=== PATIENT | female | born 1995 | race Caucasian/White ===

== ENCOUNTER 2024-02-29 18:45 | Emergency (ER) | payer SELFPAY ==
[2024-02-29 18:47] VITALS: BP 140/98; PULSE 125; RESP 22; TEMP 36; O2SAT 98
[2024-02-29 20:04] LABS: Bilirubin Negative (Negative); Blood Negative (Negative); Clarity Clear (Clear); Glucose Negative (Negative); Ketones Trace mg/dL (Negative); Leukocyte Esterase Negative (Negative); Nitrite Negative (Negative); Specific Gravity 1.025 (1.005-1.025); pH 6.5 (5-8)
[2024-02-29 20:19] LABS: Epithelial Cells Moderate HPF (Negative); RBC 0-2 HPF (0-2); WBC 0-2 HPF (0-5)
[2024-02-29 20:20] LABS: Bacteria Rare HPF (Negative); C & S Indicated? No/Sq. Contamination; Casts Negative LPF (Negative); Crystals Negative HPF (Negative); Mucus Heavy (Negative)
[2024-02-29 20:24] VITALS: PULSE 108; RESP 18; O2SAT 98
--- NOTE | 2024-02-29 20:30 | NUR.NOTE ---
Pt came in with concerns of , her blood pressure was elevated and she was being evaluated for pre-eclampsia, while attempting to draw her blood she became upset, she stated she was done, that she needed to put her child to bed, and that she had to be back tomorrow anyway, I attempted to get her to talk to the provider but she walked by and left without stopping, pt eloped, provider aware, Pt is awake and alert and appears to be able to make an informed decision, we did not get blookwork, FPJ
--- NOTE | 2024-02-29 20:52 | W.ED.GENAD ---
Discharge Plan Disposition Patient Disposition: Eloped Discharge Details Clinical Impression: Primary Care Provider: Unknown,Unknown ED Provider: Elidia Perry Home Meds and New Rx's Prescriptions: Continued citalopram 40 mg tablet 40 mg PO DAILY buprenorphine HCl 8 mg tablet, sublingual 8 mg sublingual DAILY Discontinued dextroamphetamine-amphetamine [Adderall] 20 mg tablet 20 mg PO DAILY doxycycline hyclate 50 mg tablet 25 mg PO BID HPI General Date/Time Provider Initiated Documentation: 02/29/24 19:13. HPI Narrative: This 28-year-old female with past medical history of endocarditis, anxiety, depression, moregellons disease, presents with report of concern for . Patient states she is unsure as to her last menstrual period, she thinks it was approximately 5 months ago. She states she has had some bloating and intermittent nausea. Patient denies any vaginal bleeding or abdominal discomfort. She has not had any care as she did not think to check for until this week. She states typically her periods are erratic. She is sexually active and monogamous with her . 3 para 1 Related Data Home Medications ?Medication ?Instructions ?Recorded ?Confirmed buprenorphine HCl 8 mg sublingual 8 mg sublingual DAILY 02/29/24 02/29/24 tablet citalopram 40 mg tablet 40 mg PO DAILY 02/29/24 02/29/24 Allergies Allergy/AdvReac Type Severity Reaction Status Date / Time bacitracin (From Neosporin Allergy Intermediate Skin Rash Verified 02/29/24 18:51 ([id number])) neomycin (From Neosporin Allergy Intermediate Skin Rash Verified 02/29/24 18:51 ([id number])) polymyxin B (From Neosporin Allergy Intermediate Skin Rash Verified 02/29/24 18:51 ([id number])) General Stated Complaint: 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: 4 Exam Narrative Exam Narrative: 28-year-old female anxious in appearance, alert and oriented, lungs clear to auscultation, sinus tachycardia, no abdominal tenderness no peripheral edema, distal pulses intact Course Vital Signs Vital signs: Vital Signs Temperature 36.0 C L 02/29/24 18:47 Pulse 125 H 02/29/24 18:47 Respiratory Rate 22 02/29/24 18:47 Blood Pressure 140/98 H 02/29/24 18:47 Pulse Oximetry 98 02/29/24 18:47 Temperature 36.0 C L 02/29/24 18:47 Temperature Source Temporal Artery Scan 02/29/24 18:47 Pulse 108 H 02/29/24 20:24 Respiratory Rate 18 02/29/24 20:24 Respiratory Effort Normal, Non-Labored 02/29/24 18:54 Blood Pressure 140/98 H 02/29/24 18:47 Blood Pressure Position Sitting 02/29/24 18:47 Pulse Oximetry 98 02/29/24 20:24 Oxygen Delivery Method Room Air 02/29/24 18:47 Oxygen Flow Rate 0 02/29/24 18:47 Pain Level 0 02/29/24 18:47 Lab/Test Results Lab/Test Results: Laboratory Tests Range/Units 02/29/24 18:52 Urine Color (Yellow) Yellow Urine Clarity (Clear) Clear Urine pH (5-8) 6.5 Ur Specific [place] (1.005-1.025) 1.025 Urine Protein (Neg-Trace) mg/dL 30 H Urine Ketones (Negative) mg/dL Trace H Urine Blood (Negative) Negative Urine Nitrite (Negative) Negative Urine Bilirubin (Negative) Negative Urine Urobilinogen (Up to 0.2) mg/dL 1.0 H Ur Leukocyte Esterase (Negative) Negative Urine RBC (0-2) HPF 0-2 Urine WBC (0-5) HPF 0-2 Ur Epithelial Cells (Negative) HPF Moderate Urine Crystals (Negative) HPF Negative Urine Bacteria (Negative) HPF Rare Urine Casts (Negative) LPF Negative Urine Mucus (Negative) Heavy Ur Culture Indicated? No/Sq. Contamination Urine Glucose (Negative) mg/dL Negative POC- Test(urine) Positive Medical Decision Making 28-year-old female presenting for test and evaluation. She has a positive urine test. Uterus is measuring at 4 to 5 months. heart rate 165. Blood pressure 150/98 and patient is likely between 4 and 5 months as we did check a urinalysis and there is protein noted in patient's urine. I recommended blood work and my plan was to order a second trimester ultrasound in addition to reviewing blood work and speaking with VETERANS EMPLOYMENT REPRESENTATIVE and patient eloped. Steve, platen press operator was about to draw blood work with an ultrasound-guided IV and patient said that she needed to leave to put her son to bed. I am unable to order patient ultrasound as she eloped prior to reassessment. I was unable to discuss with her that she is leaving against medical recommendation. I have placed patient on follow-up as she does need care. She is instructed to stop taking her doxycycline immediately and to review Adderall and Ativan with her PCP. She also takes Subutex and citalopram, please appear to be safe for . She also was encouraged to start taking a vitamin. Have also placed her on the list to establish with a primary care physician locally. Sounds like her last she delivered at [facility]. 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 She was considered a high risk . She will likely need referral to [facility], however will initiate VETERANS EMPLOYMENT REPRESENTATIVE follow-up at our facility. Patient's was in the room and seemed appropriate throughout the encounter. Quality:SDOH Health Related Social Needs: No Data to Display PFSH All Active Problems (Updated 02/29/24 @ 21:03 by ARMANI Bonilla) (Acute) Social History Smoking/Tobacco Use Status: Former Tobacco Use Smoking risk assessment performed?: Yes Alcohol Intake: former Substance use type: former substance user Housing: house Do you feel safe at home: Yes Do you feel safe in your relationship?: Yes
--- NOTE | 2024-03-01 12:24 | NUR.NOTE ---
Access chart to review the referral reply done. Nursing Note:
[2024-04-17 00:41] LABS: HCT 32.6 % (36.0-46.0); MCH 25.6 pg (27.0-33.0); MCHC 30.7 % (32.0-36.0); MCV 84 fL (80-95); MPV 11.7 fL (8.0-11.0); Platelet Count 238 10^3/uL (130-400); RDW 14.6 % (11.7-14.6); RDW-SD 44.5 fL; WBC 10.67 10^3/uL (4.4-10.8)
--- NOTE | 2024-04-17 01:04 | W.PM.OBHPL1 ---
Date of service: 04/17/24 Time of Service: 01:04 OB-HPI Labor/Delivery History of Present Illness Reason for Visit: bloating? preg? Chief Complaint: Uterine Contractions; Suspected Rupture of Membranes , Associated Signs and Symptoms of Suspected ROM: wet the bed just before 2300. PFSH All Active Problems (Updated 04/17/24 @ 01:05 by Jill Stafford) (Acute) Social History Smoking/Tobacco Use Status: Former Tobacco Use Smoking risk assessment performed?: Yes Alcohol Intake: former Substance use type: former substance user Housing: house Do you feel safe at home: Yes Do you feel safe in your relationship?: Yes Meds Allergies and Home Medications Allergies Allergy/AdvReac Type Severity Reaction Status Date / Time bacitracin (From Neosporin Allergy Intermediate Skin Rash Verified 02/29/24 18:51 ([id number])) neomycin (From Neosporin Allergy Intermediate Skin Rash Verified 02/29/24 18:51 ([id number])) polymyxin B (From Neosporin Allergy Intermediate Skin Rash Verified 02/29/24 18:51 ([id number])) Home Medications ?Medication ?Instructions ?Recorded ?Confirmed ?Type buprenorphine HCl 8 mg sublingual 8 mg sublingual DAILY 02/29/24 02/29/24 History tablet citalopram 40 mg tablet 40 mg PO DAILY 02/29/24 02/29/24 History Exam Physical Exam Vital signs: Temp Pulse Resp BP Pulse Ox 96.8 F L 108 H 18 140/98 H 98 02/29/24 18:47 02/29/24 20:24 02/29/24 20:24 02/29/24 18:47 02/29/24 20:24 Detailed Labor and Delivery Exam Tang Score: Cervical Points Exam 0 1 2 3 Dilation Closed 1-2cm 3-4 cm 5-6cm Effacement 0-30% 40-50% 60-70% 80% Consistency Firm Medium Soft Station -3 -2 -1,0 +1,+2 Position Posterior Mid Anterior Results Abnormal Lab Findings: Abnormal Labs 02/29/24 04/17/24 18:52 00:35 RBC 3.90 L Hgb 10.0 L Hct 32.6 L MCH 25.6 L MCHC 30.7 L MPV 11.7 H Urine Protein 30 H Urine Ketones Trace H Urine Urobilinogen 1.0 H
[2024-04-17 01:16] LABS: ALT 39 U/L (14-59); AST 48 U/L (15-37); Albumin 2.3 g/dL (3.4-5.0); Alkaline Phosphatase 219 U/L (46-116); Anion Gap 9.2 mmol/L (3-11); BUN 15 mg/dL (7-18); Bilirubin, Total 0.27 mg/dL (0.2-1.0); CO2 24.8 mmol/L (21.0-32.0); CREATININE 0.9 mg/dL (0.55-1.02); Calcium 7.9 mg/dL (8.5-10.1); Chloride 102 mmol/L (98-107); Glucose 168 mg/dL (74-106); Potassium 3.9 mmol/L (3.5-5.1); Sodium 136 mmol/L (136-145); Total Protein 6.9 g/dL (6.4-8.2)
[2024-04-18 09:50] LABS: HIV-1/2 Ag & Ab Screen Negative (Negative)
[2024-04-19 10:39] LABS: Varicella IgG Antibody Positive (See Note)
[2024-04-19 10:53] LABS: Rubella IgG Ab (UVM) Positive (See Note)
[2024-04-20 14:41] LABS: Syphilis IgG w/Reflex Nonreactive (Nonreactive)
[2024-04-21 11:21] LABS: Buprenorphine 1702.3 ng/mL (Cutoff: 5.0); Norbuprenorphine 1522.6 ng/mL (Cutoff: 2.5)
== END 2024-02-29 20:24 | disposition left against medical advice (07) ==
PROVIDERS: Advanced Practice Midwife; Emergency Provider Physician Assistant
DX: R11.0 Nausea (principal); R12 Heartburn; Z32.01 Encounter for pregnancy test, result positive; I10 Essential (primary) hypertension; Z53.29 Procedure and treatment not carried out because of patient's decision for other reasons; Z86.79 Personal history of other diseases of the circulatory system
CPT/HCPCS: 80053; 81025; 99283; 81003; 81015; 83735; 84443; 85025; 99284

== ENCOUNTER 2024-04-16 23:50 | Inpatient (IN) | payer MEDICAID, SELFPAY ==
[2024-04-17] VITALS (68 sets, daily range): BP systolic 74–154; BP diastolic 50–100; PULSE 39–112; RESP 18–20; TEMP 36.4–37.4; O2SAT 97–100
--- NOTE | 2024-04-17 00:10 | HPE_ITS ---
Date of service: 04/17/24 Time of Service: 00:10 Assessment and Plan Assessment and plan (1) History of inadequate care: Status: Acute (2) labor in third trimester with delivery: Status: Acute Assessment and plan: A: 28 yo previous 40 wk in 2019 [facility] care, 35+4 wks by late trimester ultrasound Arrival in unit with delivery imminent; pt previously unknown to this service P: Dr. Garcia and Peds notified and enroute, GBS collected, labs ordered, start IV shortly; request records from [facility] (3) Hepatitis C antibody positive in blood: Status: Acute (4) Substance use disorder: Status: Acute OB-HPI Labor/Delivery History of Present Illness Reason for Visit: labor Chief Complaint: Uterine Contractions; Suspected Rupture of Membranes , Associated Signs and Symptoms of Suspected ROM: woke up to a wet bed just before 2300. RHONDA Calculator Estimated Delivery Date Method WG Current Estimate 05/18/24 Ultrasound #1 Infant Delivery Date-Baby A 04/17/24 35w 4d Comments: , 35 +4 wks by pt report of ultrasound dating at [facility], previous vaginal delivery Review of Systems Narrative: ROS not completed prior to delivery due to active labor PFSH All Active Problems (Updated 04/17/24 @ 01:26 by Jill Stafford) History of MRSA infection (Acute) History of endocarditis in adulthood (Acute) Morgellons syndrome (Acute) History of pulmonary embolism (Acute) Tricuspid valve regurgitation (Acute) PTSD (post-traumatic stress disorder) (Acute) Substance use disorder (Acute) Hepatitis C antibody positive in blood (Acute) labor in third trimester with delivery (Acute) History of inadequate care (Acute) (Acute) Social History Smoking/Tobacco Use Status: Former Tobacco Use Smoking risk assessment performed?: Yes Alcohol Intake: former Substance use type: former substance user Housing: house Do you feel safe at home: Yes Do you feel safe in your relationship?: Yes History History 3 Para 1 Hx # Term Pregnancies 1 Multiple births 0 Hx # Pregnancies 0 Ectopic pregnancies 0 AB induced 1 Hx Number of Living Children 1 AB spontaneous 0 Meds Allergies and Home Medications Allergies Allergy/AdvReac Type Severity Reaction Status Date / Time bacitracin (From Neosporin Allergy Intermediate Skin Rash Verified 02/29/24 18 :51 ([id number])) neomycin (From Neosporin Allergy Intermediate Skin Rash Verified 02/29/24 18:51 ([id number])) polymyxin B (From Neosporin Allergy Intermediate Skin Rash Verified 02/29/24 18:51 ([id number])) Home Medications ?Medication ?Instructions ?Recorded ?Confirmed ?Type buprenorphine HCl 8 mg sublingual 8 mg sublingual DAILY 02/29/24 02/29/24 History tablet citalopram 40 mg tablet 40 mg PO DAILY 02/29/24 02/29/24 History Exam Physical Exam Vital signs: Pulse BP Pulse Ox 80 97/55 L 97 04/17/24 01:07 04/17/24 01:07 04/17/24 01:04 Vital Signs Reviewed: Yes Constitutional Constitutional: severe distress, obese and agitated Detailed Labor and Delivery Exam Dilation: 8.5 Effacement (%): 100 station: 0 Amniotic Membrane Status: Ruptured (clear) Contraction Frequency(min): q2-3 Contraction Intensity: Moderate/Strong Fetus A Heart Rate Baseline: 140 Variability: Moderate (6-25 BPM) Presentation: Cephalic Date of Membrane Rupture: 04/17/24 Time of Membrane Rupture: 23:00 HEENT Exam HEENT Exam: Normal Neck Exam Neck Exam: Normal Chest/Brest/Axilla Exam Chest Exam: Normal Breast Exam Breast Exam: Not Done Respiratory Exam Respiratory Exam: Normal Cardiovascular Exam Cardiovascular Exam: Normal Abdominal Exam Abdominal Exam: Normal (35 wk gravid uterus, nontender) Rectal Exam Rectal Exam: Normal Exam Exam: Normal Extremities Exam Extremities Exam: Normal Back/Spine/Pelvis Exam Back Exam: Normal Pelvis Adequate: Yes Skin Exam Skin Exam: Normal Neurological Exam Neurological Exam: Normal Results Results Group Beta Strep: Done-Result Unknown Risk Assessment Risk for Shoulder Dystocia Increased Risk?: No Counseling: proven to 7-8 lb Risk for Post- Hemorrhage At Risk?: Yes Counseled re: Active Management: Yes Risks Reviewed Risks Reviewed Upon Admission: Yes
[2024-04-17] MEDS: Oxytocin 10 UNITS/ML VIAL IM (00:15)
--- NOTE | 2024-04-17 00:40 | PLAC_PTH ---
PATIENT: Janel Marie LOC: OBS U#:[id number] AGE/SX: 28/F ROOM: OBS.301 RE04/16/[address]: Jill Stafford CNM : 1995 BED: A DIS: 04/22/2024 SPEC #: [id number] RECD: 04/19/24 12:50 STATUS: ALLEN REQ #: [id number] JONI: 04/17/24 00:[address]: Ilene Garcia DEPT: Surgical Specimen RECD BY: Elidia Samson ENTERED: 04/19/24 12:50 SP TYPE: PLAC OTHR DR: Jill Stafford CNM Unknown,Unknown Tissues: 1 - PLACENTA (3RD TRIMESTER) Procedures: GROSS AND MICRO LEVEL 5 Comments: [id number]
[2024-04-17] MEDS: Lactated Ringers 500 ML IV (01:00)
[2024-04-17] MEDS: TRANEXAMIC ACID/SOD. CHL. 1,000 MG/100 ML BAG 600 MG IVPB (01:00)
[2024-04-17] MEDS: Oxytocin/Normal Saline 30 UNIT/500 ML BAG 167 UNITS IV (01:15)
[2024-04-17] MEDS: Ibuprofen 600 MG TAB PO (01:25)
[2024-04-17] MEDS: Acetaminophen 325 MG TAB 650 MG PO (01:25)
--- NOTE | 2024-04-17 01:27 | OBVDS_ITS ---
Date of service: 04/17/24 Time of Service: 01:27 OB Labor/ Delivery Information Baby A Delivery Delivery Method: Spontaneaous Presentation: Cephalic Cephalic Position: Vertex Breech Position: N/A Cord Description-Baby A: 3 Vessels (hypercoiled cord) Amniotic Fluid: Clear Estimated Blood Loss: 1400 QBL Delivery Outcome: Liveborn Infant Transferred: Remains with Mother Note: Pt admitted to unit in advanced labor accompanied by FOB, having a difficult time coping with contraction pain and was somewhat uncooperative with admission procedures, unable to obtain a consistent FHT tracing, multiple attempts at IV access were unsuccessful, of vigorous female less than 25 minutes after arrival to unit in precipitous fashion, RN was able to control the delivery of the body once the head had already delivered spontaneously then h anded the crying to mother's arms as CNM arrived in room. Pitocin 10 units IM given, cord clamped and cut by FOB at 5 minutes, brisk vaginal bleeding began without cord lengthening or placental release despite cord traction, fundal massage and maternal efforts. RN resumed IV access attempts with success, QBL @ 800 ml and TXA infusion ordered as well as Pitocin bolus. Brisk bleeding continued with QBL at 1000 ml, Dr. Garcia notified via phone as she was en route and OR team was called in anticipation of need for anesthesia due to retained placenta with hemorrhage. At 38 minutes post-delivery [place] placenta delivered intact with 3VC which appears hypercoiled, fundus firm below umbilicus, straight cath performed for 100 ml yellow urine @ 0049 which was sent to lab for UDS. QBL at 1400 ml, lochia slowed to a trickle with no clots in vaginal vault. Miso 600 mcg given PO, soft BP readings addressed with IVF bolus, vulva and vagina inspected and are without laceration. Placenta inspected and noted to be complete, will send to pathology and cord segment tax will be ordered by Peds. 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 Appropriate mother/baby bonding observed, apgars 8/9, weight 2700 gms. Providers Nurse Record Press Tender: Jill Stafford Nurse: Stefany Mcdonough Nurse: Yeny Stafford Labor/Delivery Information Number of Babies in Womb: 1 Steroids Given: None Reason Steroids Not Administered: N/A Group Beta Strep: Done-Result Unknown Antibiotics Administered: No Maternal Complications: Precipitous Labor(<3hrs) and Hemorrhage Shoulder Dystocia: No Stages of Labor Onset of Labor Date: 04/16/24 Onset of Labor Time: 23:00 Complete Dilatation Date: 04/17/24 Complete Dilatation Time: 00:10 Labor - Stage 1 Duration: 1 hours and 10 minutes ROM Baby A: 04/17/24 ROM Baby A: 23:00 ROM Total Time- Baby A: hours-1367minutes Infant Delivery Date-Baby A: 04/17/24 Delivery Time-Baby A: 00:13 Labor Stage 2 Duration: 3 minutes Placenta Delivery Date-Baby A: 04/17/24 Placenta Delivery Time-Baby A: 00:42 Labor-Stage 3 Duration: 29 minutes Total Length of Labor-Baby A: 1 hours and 13 minutes Placenta Status: Delivered Baby A Gender: Female Gestational Status: Late (34-36.6 wks) Gestational Age in Weeks/Days: 35 Weeks and 4 Days weight: 5 lb 14.887 oz Hemorrrhage Note Note Note: QBL determined by contents of under buttocks drape, scale not needed Hemorrhage Recognized Date Hemorrhage Recognized: 04/17/24 Time Hemorrhage Recognized: 00:18 Call for Help Date: 04/17/24 Time: 00:18 2nd RN in Room Date: 04/17/24 Time: 00:05 2nd RN: Yeny Stafford Provider in Room Date: 04/17/24 Time: 00:14 Provider: Jill Stafford RN Promotion Officer Notified Date: 04/17/24 Time: 23:50 RN Promotion Officer on Floor Date: 04/17/24 Time: 23:55 IV Site Left Antecubital: Date: 04/17/24 Time: 01:00 Right: Date: 04/17/24 (placed by ANDRÉS for 2nd line) Suarez Catheter Time of insertion: 00:49 Inserted by: straight cath by JAD Stafford Medication Administration 1st Administration: Medication: Oxytocin 10 U IM Administration Date: 04/17/24 Administration Time: 00:15 2nd Administration: Medication: TXA 1 gm IV Administration Date: 04/17/24 Administration Time: 01:00 3rd Administration: Medication: Oxytocin 30U/500 ml IV Administration Date: 04/17/24 Administration Time: 01:15 4th Administration: Medication: Misoprostol 600 mcg PO Administration Date: 04/17/24 Administration Time: 00:53 Second Provider in Room Date: 04/17/24 Time: 00:50 Provider: Ilene Garcia Total Blood Loss for PPH Event Quantitative Blood Loss: 1,400
--- NOTE | 2024-04-17 01:38 | W.ANESVAS ---
Midline Placement Date Performed: 04/17/24 Procedure Time: Requesting Provider: Ilene Garcia Procedure Location: Obstetrics Sedation Given (Indicate Dose Given): No Sedation given Patient Mental Status: Awake Sterility: Hand Hygiene, Surgical Cap, Surgical Mask, Sterile Gloves, Sterile Drape/Sheet and Chlorhexidine Laterality: Right Insertion Site: Basilic Midline Device: PowerGlide Pro 18G Catheter Length: 10 cm Midline Procedure Procedure: 1% Lidocaine to skin and subcutaneous tissue with 25g needle and Catheter placed without resistance Dressing: Tegaderm Applied and Statlock Applied Blood Return: Present Flushes: Easily Ultrasound: Sterile probe cover and gel used Ultrasound Image Saved?: Yes Number of Attempts (See previous attempts in note section): 1 Procedure Tolerated: No Complications Procedure Outcome: Successful Procedure Comment:: Was called in for a stat post hemorrhage. On arrival hemmorage had stopped, but with still soft BPs and a singular 20 GA PIV. Extremely poor peripheral vascular options on visual exam, so a midline was placed. Performed By: Pedro Castellano
[2024-04-17 02:50] LABS: COMMENT (LAB VIEW ONLY) 214.38 mg/dL; PROTEIN 45.9 mg/dL; Prot/Crea Ur Ratio 0.21
[2024-04-17 02:55] LABS: *AMPHETAMINES SCREEN URINE Positive (Negative); *BARBITURATES SCREEN URINE Negative (Negative); *BENZODIAZEPINES SCREEN URINE Negative (Negative); Cannabinoids THC Negative (Negative); Cocaine Screen,Urine Positive (Negative); METHADONE URINE SCREEN Negative (Negative); OPIATES URINE SCREEN Negative (Negative)
[2024-04-17 02:57] LABS: Tricyclic Antidepressants Negative (Negative)
[2024-04-17] MEDS: Citalopram 20 MG TAB PO (08:40)
[2024-04-17 09:53] LABS: Lab Add On Test DONE
--- NOTE | 2024-04-17 10:02 | OBPPV_ITS ---
Date of service: 04/17/24 Time of Service: 10:02 Assessment and Plan Assessment and plan (1) Gestational hypertension without significant proteinuria: Status: Acute Assessment and plan: Repeat CMP/CBC this evening Mild range BP 140-150 over 95-100 Denies CURRAN, RUQ pain, SOB or dizziness gHTN vs cHTN Repeat CMP today, consider antihypertensive medication in consultation with Dr. Garcia (2) Cocaine abuse affecting in third trimester: Status: Acute Assessment and plan: UDS +cocaine and amphetamines, pt takes Adderal & Bup by prescription Order to confirm cocaine results sent Pt informed of results and denies use, is contraindicated if pt is using, pt opts to pump/dump today Pt requests repeat UDS tomorrow morning LESA/ESC in progress per Peds, cord segment tox pending Peds has initiated report to [facility] (3) , delivered: Status: Acute Assessment and plan: A: PP day of delivery, mild range BP noted, pt denies sx, pr/cr ratio is nml, AST slightly elevated gestational vs chronic HTN, known Hep C+ from previous records, serology pending JOSE, cocaine+ on admission UDS Pt lives with FOB and their 5 yo son in [facility] P: repeat CMP and CBC this evening; Dr. Garcia collaborating Explain ESC process to pt and encourage her participation/engagement Expect discharge to boarder status PPD#2 or 3 pending serial BP and lab results Engage case management & S in accessing community support planning after discharge DCF has been given report of no care and UDS result by Peds discouraged until UDS is clear of cocaine Pt desires Nexplanon insertion prior to discharge States she desires referral to [facility] for Hep C treatment in future (4) hemorrhage, third stage, delivered: Status: Acute Assessment and plan: s/p 1400 QBL in third stage, stable with minimal blood loss since placenta delivered Midline IV access is saline locked and patent Pt denies SOB, dizziness or sx of anemia Will recheck CBC this evening Consider iron infusion prior to discharge depending on H&H Exam Physical Exam Vital signs: Temp Pulse Resp BP Pulse Ox 99.3 F 88 18 148/100 H 97 04/17/24 09:04 04/17/24 09:04 04/17/24 09:04 04/17/24 09:04 04/17/24 09:04 Vital Signs Reviewed: Yes Constitutional Constitutional: no acute distress, obese and cooperative HEENT Exam HEENT Exam: Normal Neck Exam Neck Exam: Normal Breast Exam Bilateral: Breast Exam: Normal and Soft Nipple Exam: Normal and Uninjured Respiratory Exam Respiratory Exam: Normal Cardiovascular Exam Cardiovascular Exam: Normal Abdominal Exam Abdomen: Other (soft, nontender) Fundal Exam Fundus: Below Umbilicus and Firm Rectal Exam Rectal Exam: Normal Exam Perineum: Intact and Normal Extremities Exam Extremity Exam: Full ROM, Warm to Touch and Other (+1 lower limb edema) Back/Spine/Pelvis Exam Back Exam: Normal Skin Exam Skin Exam: Normal Neurological Exam Neurological Exam: Normal (no clonus, nml patellar reflex) Psychiatric Exam Psychiatric Exam: Normal Results Abnormal Lab Findings: Abnormal Labs 04/17/24 00:50 Ur Amphetamines Screen Positive A Urine Cocaine Screen Positive A Hemorrrhage Note Hemorrhage Recognized Date Hemorrhage Recognized: 04/17/24 Time Hemorrhage Recognized: 00:18 Call for Help Date: 04/17/24 Time: 00:18 2nd RN in Room Date: 04/17/24 Time: 00:05 2nd RN: Yeny Stafford Provider in Room Date: 04/17/24 Time: 00:14 Provider: Jill Stafford RN Talent Acquisition Lead Notified Date: 04/17/24 Time: 00:18 RN Talent Acquisition Lead on Floor Date: 04/17/24 Time: 23:55 Talent Acquisition Lead: Alex OTOOLE Scale in Room Date: 04/17/24 Time: 00:20 OB Emergency Cart at Bedside Date: 04/17/24 Time: 00:20 Suarez Catheter Urinary Catheter Date of Insertion: 04/17/24 Time of insertion: 00:49 Inserted by: JAD Stafford Straight Cath Second Provider in Room Date: 04/17/24 Time: 00:50 Provider: Ilene Garcia Total Blood Loss for PPH Event Quantitative Blood Loss: 1,400 Labs Drawn Labs Drawn: Yes
[2024-04-17] MEDS: LORazepam 1 MG TAB 2 MG PO ×2 (12:34→20:02)
[2024-04-17 18:20] LABS: HCT 22.5 % (36.0-46.0); HGB 7.1 g/dL (11.2-15.7); MCHC 31.6 % (32.0-36.0); MCV 82 fL (80-95); MPV 11.6 fL (8.0-11.0); Platelet Count 222 10^3/uL (130-400); RBC 2.73 10^6/uL (3.93-5.22); RDW 14.6 % (11.7-14.6); RDW-SD 42.7 fL; WBC 11.53 10^3/uL (4.4-10.8)
[2024-04-17 18:31] LABS: ALT 28 U/L (14-59); AST 40 U/L (15-37); Albumin 1.8 g/dL (3.4-5.0); Alkaline Phosphatase 153 U/L (46-116); Anion Gap 5.8 mmol/L (3-11); BUN 14 mg/dL (7-18); Bilirubin, Total 0.17 mg/dL (0.2-1.0); CO2 26.2 mmol/L (21.0-32.0); CREATININE 0.9 mg/dL (0.55-1.02); Calcium 8.1 mg/dL (8.5-10.1); Chloride 104 mmol/L (98-107); Glucose 81 mg/dL (74-106); Potassium 4.4 mmol/L (3.5-5.1); Sodium 136 mmol/L (136-145); Total Protein 5.3 g/dL (6.4-8.2)
[2024-04-17] MEDS: Docusate Sodium 100 MG CAP PO (21:08)
[2024-04-18] MEDS: Citalopram 20 MG TAB PO (08:35)
[2024-04-18] MEDS: IRON SUCROSE COMPLEX 300 MG in Normal Saline 250 ML 167 MG IVPB (08:53)
[2024-04-18] MEDS: Normal Saline Flush 10 ML SYR IVP ×2 (08:54→10:40)
[2024-04-18] MEDS: LORazepam 1 MG TAB 2 MG PO ×2 (09:12→16:11)
[2024-04-18 09:18] VITALS: BP 139/89; PULSE 86; RESP 18; TEMP 36.9
[2024-04-18 09:34] LABS: *AMPHETAMINES SCREEN URINE Positive (Negative); *BARBITURATES SCREEN URINE Negative (Negative); *BENZODIAZEPINES SCREEN URINE Negative (Negative); Cannabinoids THC Negative (Negative); Cocaine Screen,Urine Positive (Negative); METHADONE URINE SCREEN Negative (Negative); OPIATES URINE SCREEN Negative (Negative)
[2024-04-18 09:37] LABS: Tricyclic Antidepressants Negative (Negative)
[2024-04-18] MEDS: Ibuprofen 600 MG TAB PO (12:54)
[2024-04-18 13:01] VITALS: BP 146/97; PULSE 95
[2024-04-18 14:13] LABS: COMMENT (LAB VIEW ONLY) 23.23 mg/dL; PROTEIN < 6.0 mg/dL
[2024-04-18 14:14] LABS: ALT 33 U/L (14-59); AST 43 U/L (15-37); Albumin 1.9 g/dL (3.4-5.0); Alkaline Phosphatase 167 U/L (46-116); Anion Gap 5.1 mmol/L (3-11); BUN 12 mg/dL (7-18); CO2 30.9 mmol/L (21.0-32.0); CREATININE 0.8 mg/dL (0.55-1.02); Calcium 8.3 mg/dL (8.5-10.1); Chloride 103 mmol/L (98-107); Estimated GFR 101.59 (mL/min/1.73m2); Glucose 113 mg/dL (74-106); Potassium 4.3 mmol/L (3.5-5.1); Sodium 139 mmol/L (136-145); Total Protein 5.6 g/dL (6.4-8.2)
[2024-04-18 14:15] LABS: Bilirubin, Total < 0.10 mg/dL (0.2-1.0)
[2024-04-18 14:30] VITALS: BP 120/82; PULSE 102; RESP 16; TEMP 37; O2SAT 98
--- NOTE | 2024-04-18 14:40 | OBPPV_ITS ---
Date of service: 04/18/24 Time of Service: 14:41 Assessment and Plan Assessment and plan (1) Gestational hypertension without significant proteinuria: Status: Acute Assessment and plan: CMP yesterday and today are stable with mild elevation of AST @ 40's BP remains intermittently mild range; +1/+2 lower limb edema, normoreflexic New onset CURRAN this afternoon, treated with NSAID & tylenol Repeat pr/cr ratio was too low to calculate today Discussed gHTN vs cHTN with Dr. Garcia, anti-hypertensive medication not indicated at this time Will continue to monitor (2) Cocaine abuse affecting in third trimester: Status: Acute Assessment and plan: Repeat UDS this morning remains cocaine+ Will continue to formula feed , encourage pump/dump Repeat UDS tomorrow (3) , delivered: Status: Acute Assessment and plan: A: PPD#1, anemia from blood loss, cocaine+ in UDS, mild range HTN ESC/LESA in progress, infant not feeding well, mild jitters P: Dr. Garcia consulting/collaborating Plan referral for [facility] evaluation for tomorrow, anticipate DCF call or visit tomorrow Repeat UDS in morning; formula feeds until clear Second dose of iron sucrose IV on Friday (48 hrs from first dose today) Maintain midline IV access for blood draws and infusion Nexplanon insertion prior to discharge Plan for discharge on HD #4 (Friday) (4) Anemia associated with acute blood loss: Status: Acute Assessment and plan: s/p 1400 QBL in third stage, stable with minimal blood loss since placenta delivered Midline IV access is saline locked and patent Pt denies SOB, dizziness or sx of anemia 300 mg venofer infused today, repeat in 48 hrs Subjective Subjective Patient comments: Flatus present and Other (pt intermittently emotionally labile, at times tearful, requesting 2 mg ativan dose more frequently than q8 hr, concerned about DCF taking her kids away due to cocaine found in urine) Patient's Mood: labile, anxious, cooperative Ronald baby status: Rooming in, Strong Bonding Observed and Other (pipette feeding formula, jittery, poor suck, consolable) Ronald feeding status: Pipette Feeding (pt waiting for clear UDS to begin , has been encouraged to pump/dump for now) Exam Physical Exam Vital signs: Temp Pulse Resp BP Pulse Ox 98.4 F 95 H 18 146/97 H 100 04/18/24 09:18 04/18/24 13:01 04/18/24 09:18 04/18/24 13:01 04/17/24 19:46 Vital Signs Reviewed: Yes Narrative: Intermittent mild range BP readings Constitutional Constitutional: no acute distress, obese and cooperative HEENT Exam HEENT Exam: Normal Neck Exam Neck Exam: Normal Breast Exam Bilateral: Breast Exam: Normal and Soft Respiratory Exam Respiratory Exam: Normal Cardiovascular Exam Cardiovascular Exam: Normal Abdominal Exam Abdomen: Other (soft, nontender) Fundal Exam Fundus: Below Umbilicus and Firm Rectal Exam Rectal Exam: Normal Exam Perineum: Intact and Normal Extremities Exam Extremity Exam: Full ROM, Warm to Touch and Other (+1 lower limb edema) Back/Spine/Pelvis Exam Back Exam: Normal Skin Exam Skin Exam: Normal Neurological Exam Neurological Exam: Normal (no clonus, nml patellar reflex) Psychiatric Exam Psychiatric Exam: Normal Results Hemoglobin/Hematocrit: Hgb 7.1 g/dL (11.2-15.7) L D 04/17/24 18:00 Hct 22.5 % (36.0-46.0) L 04/17/24 18:00 Hemorrrhage Note Hemorrhage Recognized Date Hemorrhage Recognized: 04/17/24 Time Hemorrhage Recognized: 00:18 Call for Help Date: 04/17/24 Time: 00:18 2nd RN in Room Date: 04/17/24 Time: 00:05 2nd RN: Yeny Stafford Provider in Room Date: 04/17/24 Time: 00:14 Provider: Jill Stafford RN Sanitation Officer Notified Date: 04/17/24 Time: 00:18 RN Sanitation Officer on Floor Date: 04/17/24 Time: 23:55 Sanitation Officer: Alex OTOOLE Scale in Room Date: 04/17/24 Time: 00:20 OB Emergency Cart at Bedside Date: 04/17/24 Time: 00:20 IV Site Left Antecubital: Date: 04/17/24 Time: 01:00 IV Catheter Gauge: 18 Right: Date: 04/17/24 (placed by OXYGEN EQUIPMENT AIDE for 2nd line) Right Midline: Date: 04/17/24 Time: 01:25 IV Catheter Gauge: 18 Suarez Catheter Urinary Catheter Date of Insertion: 04/17/24 Time of insertion: 00:49 Inserted by: JAD Stafford Straight Cath Medication Administration 1st Administration: Medication: Oxytocin 10 U IM Administration Date: 04/17/24 Administration Time: 00:15 2nd Administration: Medication: Misoprostol 600 mcg PO Administration Date: 04/17/24 Administration Time: 00:53 3rd Administration: Medication: TXA 1 gm IV Administration Date: 04/17/24 Administration Time: 01:00 4th Administration: Medication: Oxytocin 30U/500 ml IV Administration Date: 04/17/24 Administration Time: 00:15 Second Provider in Room Date: 04/17/24 Time: 00:50 Provider: Ilene Garcia Total Blood Loss for PPH Event Quantitative Blood Loss: 1,400 Labs Drawn Labs Drawn: Yes
[2024-04-18 20:00] VITALS: BP 138/91; PULSE 87; RESP 18; TEMP 36.8
[2024-04-19 03:41] VITALS: BP 132/60; PULSE 109; RESP 18
[2024-04-19] MEDS: Citalopram 20 MG TAB PO (08:20)
[2024-04-19] MEDS: LORazepam 1 MG TAB 2 MG PO ×2 (08:23→15:51)
[2024-04-19] MEDS: Normal Saline Flush 10 ML SYR IVP ×2 (08:26→19:06)
[2024-04-19 08:30] VITALS: BP 151/96; PULSE 109; RESP 14; TEMP 36.9
[2024-04-19 10:20] LABS: Hepatitis B Surface Ag Negative (Negative)
[2024-04-19 11:15] LABS: Fentanyl Scr w/Rfx Confirm Negative ng/mL (<1)
[2024-04-19 11:18] LABS: Hepatitis C Ab w Rflx HCV PCR Reactive (Negative)
--- NOTE | 2024-04-19 11:24 | OBPPV_ITS ---
Date of service: 04/19/24 Time of Service: 11:24 Assessment and Plan Assessment and plan (1) Anemia associated with acute blood loss: Status: Acute Assessment and plan: 2nd iron sucrose infusion scheduled for tomorrow morning (2) , delivered: Status: Acute Assessment and plan: A: PPD#2, cocaine+ persists in UDS this morning, fentanyl negative BP overall stable, intermittently mild range, P: Pt seen by [facility] today, is enrolling in SMART Team & appropriate community supports Request for records sent to [facility] and PCP in [place] Pt interested in transferring MAT to [facility] in [facility] Iron sucrose 300 mg IVP planned for tomorrow Likely discharge to boarding status tomorrow Nexplanon insertion prior to discharge; f/up @ 2 & 6 weeks PP Subjective Subjective Patient's Mood: sad, anxious tearful baby status: Doing well, Supplemental feeding going well, Rooming in and Strong Bonding Observed [place] feeding status: Exclusively formula feeding (unable to take breastmilk until UDS Is clear) Exam Physical Exam Vital signs: Temp Pulse Resp BP Pulse Ox 98.4 F 109 H 14 151/96 H 98 04/19/24 08:30 04/19/24 08:30 04/19/24 08:30 04/19/24 08:30 04/18/24 14:30 Vital Signs Reviewed: Yes Narrative: mild range BP's intermittently Constitutional Constitutional: no acute distress, obese and cooperative Comments: Emotionally distressed HEENT Exam HEENT Exam: Normal Neck Exam Neck Exam: Normal Breast Exam Bilateral: Breast Exam: Normal and Soft Nipple Exam: Normal and Uninjured Respiratory Exam Respiratory Exam: Normal Cardiovascular Exam Cardiovascular Exam: Normal Abdominal Exam Abdomen: Other (nontender, soft) Fundal Exam Fundus: Below Umbilicus and Firm Rectal Exam Rectal Exam: Normal Exam Perineum: Intact Extremities Exam Extremity Exam: Normal, Full ROM, Warm to Touch and Other (+1/+2 lower limb edema, normoreflexic) Back/Spine/Pelvis Exam Back Exam: Normal Skin Exam Skin Exam: Normal Neurological Exam Neurological Exam: Normal Psychiatric Exam Psychiatric Exam: Normal Hemorrrhage Note Hemorrhage Recognized Date Hemorrhage Recognized: 04/17/24 Time Hemorrhage Recognized: 00:18 Call for Help Date: 04/17/24 Time: 00:18 2nd RN in Room Date: 04/17/24 Time: 00:05 2nd RN: Yeny Stafford Provider in Room Date: 04/17/24 Time: 00:14 Provider: Jill Stafford RN Institutional Aide Notified Date: 04/17/24 Time: 00:18 RN Institutional Aide on Floor Date: 04/17/24 Time: 23:55 Institutional Aide: Alex CraftBL Scale in Room Date: 04/17/24 Time: 00:20 OB Emergency Cart at Bedside Date: 04/17/24 Time: 00:20 Suarez Catheter Urinary Catheter Date of Insertion: 04/17/24 Time of insertion: 00:49 Inserted by: JAD Stafford Straight Cath Second Provider in Room Date: 04/17/24 Time: 00:50 Provider: Ilene Garcia Total Blood Loss for PPH Event Quantitative Blood Loss: 1,400 Labs Drawn Labs Drawn: Yes
[2024-04-19 11:33] LABS: *AMPHETAMINES SCREEN URINE Negative (Negative); *BARBITURATES SCREEN URINE Negative (Negative); *BENZODIAZEPINES SCREEN URINE Negative (Negative); Cannabinoids THC Negative (Negative); Cocaine Screen,Urine Positive (Negative); METHADONE URINE SCREEN Negative (Negative); OPIATES URINE SCREEN Negative (Negative)
[2024-04-19 11:36] LABS: Tricyclic Antidepressants Negative (Negative)
[2024-04-19 16:18] VITALS: BP 121/87; PULSE 109; RESP 16; TEMP 36.8; O2SAT 98
[2024-04-19 21:12] VITALS: BP 140/90; PULSE 109; RESP 18; TEMP 36.6
[2024-04-20 07:30] VITALS: BP 137/89; PULSE 109; RESP 14; TEMP 36.8
[2024-04-20] MEDS: LORazepam 1 MG TAB 2 MG PO ×2 (07:53→13:41)
[2024-04-20] MEDS: Citalopram 20 MG TAB PO (07:55)
[2024-04-20] MEDS: IRON SUCROSE COMPLEX 300 MG in Normal Saline 250 ML 167 MG IVPB (08:20)
[2024-04-20] MEDS: Normal Saline Flush 10 ML SYR IVP (08:20)
[2024-04-20 12:26] LABS: HCT 23.7 % (36.0-46.0); HGB 7.2 g/dL (11.2-15.7); MCH 25.8 pg (27.0-33.0); MCHC 30.4 % (32.0-36.0); MCV 85 fL (80-95); MPV 10.9 fL (8.0-11.0); Platelet Count 311 10^3/uL (130-400); RBC 2.79 10^6/uL (3.93-5.22); RDW 15.2 % (11.7-14.6); RDW-SD 45.7 fL; WBC 11.67 10^3/uL (4.4-10.8)
[2024-04-20 12:43] LABS: ALT 50 U/L (14-59); AST 49 U/L (15-37); Albumin 2.1 g/dL (3.4-5.0); Alkaline Phosphatase 148 U/L (46-116); Anion Gap 5.1 mmol/L (3-11); BUN 8 mg/dL (7-18); Bilirubin, Total 0.11 mg/dL (0.2-1.0); CO2 29.9 mmol/L (21.0-32.0); Calcium 7.7 mg/dL (8.5-10.1); Chloride 104 mmol/L (98-107); Estimated GFR 77.72 (mL/min/1.73m2); Glucose 83 mg/dL (74-106); Potassium 4.3 mmol/L (3.5-5.1); Sodium 139 mmol/L (136-145); Total Protein 6.2 g/dL (6.4-8.2)
--- NOTE | 2024-04-20 13:39 | W.OBCONSULT ---
Date of service: 04/20/24 Time of Service: 13:40 Assessment and Plan Assessment and plan (1) Term of female : Status: Acute Assessment and plan: We will assist as to her appropriate short-term follow-up. She would benefit from having a maternal echocardiogram. She was also benefit from maternal- medicine input, and cardiology evaluation. Due to the complexity and complex nature of her presentation, limited care, and social situation. We will do the as much as we can to streamline and coordinate these. (2) , delivered: Status: Acute (3) History of inadequate care: Status: Acute (4) Tricuspid valve regurgitation: (5) Septic pulmonary embolism: (6) Anemia associated with acute blood loss: Status: Acute History of Present Illness History of Present Illness Chief Complaint: Status post vaginal delivery, hemorrhage, gestational HTN Narrative: Kindly asked to see in consultation this 28-year-old who is now 4 days status post precipitous vaginal . Her was complicated by the fact that she had limited care. She is a 3 now para 2 with 1 vaginal approximately 5 years ago. She had, to the best of my knowledge, 1 visit with maternal- medicine at [facility]. She also had an echocardiogram performed at [facility]. She has a known history of tricuspid regurgitation. This appears to be from history related to an episode of bacterial endocarditis from a history of IV drug use. She states that she and her partner have been clean and sober for the last 5 years. Her delivery is complex and that she came and delivered precipitously and then had a significant hemorrhage to the point that her hemoglobin was down to 7.2. She received an iron infusion yesterday and again today. The question at hand is that she has mildly elevated blood pressures in the 140s 150s over 80s to 90s range. She also has a modest amount of lower extremity edema which she states started after her delivery. On review of her records to the best of our ability, she does have a history of tricuspid regurgitation. She reports that she was urged to have a termination midtrimester with a previous due to the inability to carry a . This, however, may be related to the fact that she had bacterial endocarditis. In light of her current presentation, she appears to be hemodynamically stable, however I do think it would be of benefit to have a maternal echocardiogram, cardiology consult, maternal- medicine evaluation, and recommendations for ongoing care. She does not require antihypertensive medication at this point. We have contacted maternal- medicine at [facility] for further recommendation and evaluation. They are assessing as to whether they could receive her as a transfer. The patient herself is hopeful that she may be discharged and follow-up in short interval follow-up for her echocardiogram. All of these options will be entertained. PFSH All Active Problems (Updated 04/20/24 @ 11:46 by Enid German CNM) Term of female (Acute) Anemia associated with acute blood loss (Acute) , delivered (Acute) Gestational hypertension without significant proteinuria (Acute) Anxiety (Chronic) Morgellons syndrome (Acute) Substance use disorder (Acute) History of inadequate care (Acute) Medical History MSSA bacteremia 04/17/18 Septic pulmonary embolism 06/04/2018. treated at [facility] Hepatitis C antibody positive in blood PTSD (post-traumatic stress disorder) History of endocarditis in adulthood 05/25/2018 History of pulmonary embolism 06/04/2018 [facility] Tricuspid valve regurgitation hemorrhage, third stage, delivered History of intravenous drug abuse Social History Smoking/Tobacco Use Status: Current every day Tobacco Type: e-cigarettes Smoking risk assessment performed?: Yes Alcohol Intake: former Substance use type: former substance user Details: Addarall 20 mg once a day citalopram 20mg once a day lorazepam tid 2mg buprenorphine 8mg BID Housing: house Do you feel safe at home: Yes Do you feel safe in your relationship?: Yes History History 3 Para 1 Hx # Term Pregnancies 1 Multiple births 0 Hx # Pregnancies 0 Ectopic pregnancies 0 AB induced 1 Hx Number of Living Children 1 AB spontaneous 0 Past Pregnancies Del. Date GA/Weeks # Preg Succ Route Wgt Sex Labor Lgth Anesthesia Location [facility] 03/24/20 [facility], Dr. Dian Riley MD Delivery Date: 03/24/20 Last Updated by: Enid German CNM IAB Results Last Vital Signs Temp 98.2 F 04/20/24 07:30 Pulse 109 H 04/20/24 07:30 Resp 14 04/20/24 07:30 BP 137/89 04/20/24 07:30 Pulse Ox 98 04/19/24 16:18 Labs 04/20/24 12:13 04/20/24 12:13 Labs: Laboratory Results - last 24 hr 04/20/24 12:13 WBC 11.67 H RBC 2.79 L Hgb 7.2 L Hct 23.7 L MCV 85 MCH 25.8 L MCHC 30.4 L RDW 15.2 H Plt Count 311 MPV 10.9 Sodium 139 Potassium 4.3 Chloride 104 Carbon Dioxide 29.9 Anion Gap 5.1 BUN 8 Creatinine 1.0 Est GFR (CKD-EPI 2020) 77.72 Glucose 83 Calcium 7.7 L Total Bilirubin 0.11 L AST 49 H ALT 50 Alkaline Phosphatase 148 H Total Protein 6.2 L Albumin 2.1 L
--- NOTE | 2024-04-20 16:17 | NUR.NOTE ---
RN took over pt at 1500. Unable to do assessment and vitals at this time due to DCF in room discussing current situation and plan moving forward. Nursing Note:
[2024-04-20 17:50] VITALS: BP 140/83; PULSE 115; RESP 19; O2SAT 98
--- NOTE | 2024-04-20 20:05 | OBPPV_ITS ---
Date of service: 04/20/24 Time of Service: 20:05 Assessment and Plan Assessment and plan (1) Term of female : Status: Acute Assessment and plan: Caring for baby independently. Pain is managed well with oral analgesics. Voiding without difficulty. Bottlefeeding and pumping. CMP and CBC WNL. AST 49. PIC line still in place. A - stable mother and baby , Post day 3, History of tricupid regurgitation. P - Discharge to home tomorow following echocardiogram at [facility]. Janel will continue to board with her baby during LESA evaluation. (2) Contraception: Status: Acute Assessment and plan: Janel desires post nexplanon insertion. I offered her the option of insertion this evening or tomorrow, and she opted for insertion this evening. After setting up supplies, Janel declined insertion due to the baby crying and she declined nursing support stating that none of the night nurses could quiet her. Will plan to perform nexplanon insertion tomorrow. (3) Anemia associated with acute blood loss: Status: Acute Assessment and plan: Second iron infusion provided today. Janel reports that she is asymptomatic when out of bed and will continue to assess. (4) Gestational hypertension without significant proteinuria: Status: Acute Assessment and plan: Transfer to [facility] was offered for further cardiac evaluation including echocardiogram and Janel initially accepted, stating she wished to go to [facility] as that is where she had originially planned to deliver. Indications for echocardiogram including previous tricuspid valve prolape and hypertension and anemia due to blood loss were discussd. [facility] consult with Dr. Vinita Santoro at [facility] via telephone regarding Gregs medical history and transfer was arranged. However when Janel was visited at 1300, she became angry and stated she did not wish to sit in another hospital and she strongly declined transfer. Her partner also called and I spoke to him and his questions were answered. He stated he did not understand why transfer to another hospital was indicated at this time. I told him I had not spoken to MFM at [facility] and would be requesting their opinion about transfer for cardiology care. Dr Poon and I spoke with Dr. Dejesus here at [facility] who recommended an echocardiogram to be read at [facility]. She would not be available 04/21/24 to read the Echo. Echo cardiogram was orederd for 04/21 and Janel agrees to this test. (5) Anxiety: Status: Chronic Assessment and plan: Chanel has been taking lorazepam 2 mg TID PRN during her hospital stay as well as citalopram. and buprenorphone 8 mg QD as prescribed by her provider in [facility], Abril Arias PLUMBING DESIGNER. DCF visited with Janel and explained that a case would be opened due to pos. cocaine in the baby's meconium and lack of care. Kristi Richmond also visited Janel with DCF and Janel was encouraged to notify her partner of her cocaine use during . She did notify him. VNA referral was also made to [facility]. (6) Substance use disorder: Status: Acute Assessment and plan: Janel expressed an interest in transferring MAT care to [facility] and Kristi Richmond provided information about this. Subjective Subjective Interval history: Janel has been caring for her baby and LESA assessments are ongoing. Janel denies discomfort. She has been pumping her breasts but has not been feeding pumped milk due to positive drug screens for cocaine. She admits to cocaine use and reported that her partner was unaware and she wished for staff to not tell him about it. Cocaine confirmation test is pending at this time. Patient comments: Other Patient's Mood: pedal edema baby status: Bottle feeding well and Other (observed to be jittery and hard for Chanel to console at times. ) feeding status: Exclusively formula feeding Narrative: I visited Chanel with Dr Poon and we discussed her medical history and current status. We discussed her elevated BP readings since delivery and lab results. Surjit became angry, expressing that many staff members have come in and asked the same questions. She stated that her concerns about pedal edema have been ignored. She reports that she has had edema since she delivered. She also complains of low back pain. She reports that she had been advised to terminate her previously due to cardiac history and that she had been advised not to carry a to term due to cardiac history. She also stated that she had been told that she needed to have cardiac surgery and her fear when she learned that she was at 29 weeks was that she would during her . I reviewed available records at [facility] including records at [facility] in [facility]. She was treated there in 05/2018 for endocarditis and septic pulmonary embolus. Per notes from Dr Torrie Arias 03/30/25, her wallpaper remover steam Dr Maria L Sena at [facility] had reported in 2021 that was not contraindicated and that cardiac surgery was not indicated. Dr Painter has not seen Janel during this as she had not kept appointments with her. Janel did attend a scheduled echocardiogram 03/03/25 which confirmed tricuspid regurgitation. Exam Physical Exam Vital signs: Temp Pulse Resp BP Pulse Ox 98.2 F 115 H 19 140/83 98 04/20/24 07:30 04/20/24 17:50 04/20/24 17:50 04/20/24 17:50 04/20/24 17:50 Vital Signs Reviewed: Yes Constitutional Constitutional: moderate distress (agitated and frustrated with question sabout her health history) HEENT Exam HEENT Exam: Normal Respiratory Exam Respiratory Exam: Normal Cardiovascular Exam Cardiovascular Exam: Normal Fundal Exam Fundus: Below Umbilicus and Firm Extremities Exam Extremity Exam: Edema (1+ edema at the tops of her feet. ) Back/Spine/Pelvis Exam Back Exam: Normal Skin Exam Skin Exam: Normal Psychiatric Exam Psychiatric Exam: Abnormal (angry and agitated. ) Results Hemoglobin/Hematocrit: Hgb 7.2 g/dL (11.2-15.7) L 04/20/24 12:13 Hct 23.7 % (36.0-46.0) L 04/20/24 12:13 Abnormal Lab Findings: Abnormal Labs 04/17/24 04/17/24 04/17/24 00:35 00:50 18:00 WBC 11.53 H RBC 2.73 L Hgb 7.1 L D Hct 22.5 L MCH 26.0 L MCHC 31.6 L RDW MPV 11.6 H Glucose Calcium 8.1 L Total Bilirubin 0.17 L AST 40 H Alkaline Phosphatase 153 H Total Protein 5.3 L Albumin 1.8 L Ur Amphetamines Screen Positive A Urine Cocaine Screen Positive A Hepatitis C Antibody Reactive A 04/18/24 04/18/24 04/19/24 08:55 13:33 11:05 WBC RBC Hgb Hct MCH MCHC RDW MPV Glucose 113 H Calcium 8.3 L Total Bilirubin < 0.10 L AST 43 H Alkaline Phosphatase 167 H Total Protein 5.6 L Albumin 1.9 L Ur Amphetamines Screen Positive A Urine Cocaine Screen Positive A Positive A Hepatitis C Antibody 04/20/24 12:13 WBC 11.67 H RBC 2.79 L Hgb 7.2 L Hct 23.7 L MCH 25.8 L MCHC 30.4 L RDW 15.2 H MPV Glucose Calcium 7.7 L Total Bilirubin 0.11 L AST 49 H Alkaline Phosphatase 148 H Total Protein 6.2 L Albumin 2.1 L Ur Amphetamines Screen Urine Cocaine Screen Hepatitis C Antibody Hemorrrhage Note Hemorrhage Recognized Date Hemorrhage Recognized: 04/17/24 Time Hemorrhage Recognized: 00:18 Call for Help Date: 04/17/24 Time: 00:18 2nd RN in Room Date: 04/17/24 Time: 00:05 2nd RN: Yeny Stafford Provider in Room Date: 04/17/24 Time: 00:14 Provider: Jill Stafford RN Paint Crew Supervisor Notified Date: 04/17/24 Time: 00:18 RN Paint Crew Supervisor on Floor Date: 04/17/24 Time: 23:55 Paint Crew Supervisor: Alex CraftBL Scale in Room Date: 04/17/24 Time: 00:20 OB Emergency Cart at Bedside Date: 04/17/24 Time: 00:20 Suarez Catheter Urinary Catheter Date of Insertion: 04/17/24 Time of insertion: 00:49 Inserted by: JAD Stafford Straight Cath Second Provider in Room Date: 04/17/24 Time: 00:50 Provider: Ilene Garcia Total Blood Loss for PPH Event Quantitative Blood Loss: 1,400 Labs Drawn Labs Drawn: Yes
[2024-04-20 21:25] VITALS: BP 137/86; PULSE 115; RESP 18; TEMP 37.2
[2024-04-21 05:30] VITALS: BP 124/80; PULSE 115; RESP 18
[2024-04-21] MEDS: Citalopram 20 MG TAB PO (07:56)
[2024-04-21] MEDS: LORazepam 1 MG TAB 2 MG PO ×2 (07:59→15:22)
[2024-04-21 08:00] VITALS: BP 140/104; PULSE 106; RESP 18; TEMP 36.7; O2SAT 100
[2024-04-21 09:58] LABS: *AMPHETAMINES SCREEN URINE Negative (Negative); *BARBITURATES SCREEN URINE Negative (Negative); *BENZODIAZEPINES SCREEN URINE Negative (Negative); Cannabinoids THC Negative (Negative); Cocaine Screen,Urine Negative (Negative); METHADONE URINE SCREEN Negative (Negative); OPIATES URINE SCREEN Negative (Negative)
[2024-04-21 09:59] LABS: Tricyclic Antidepressants Negative (Negative)
[2024-04-21 12:09] LABS: Lab Add On Test DONE
[2024-04-21 12:51] LABS: HCV RNA Detection Quantitative 385000 IU/mL (Undetected); HCV RNA Qualitative Detected (Undetected)
[2024-04-21 13:44] VITALS: BP 148/88; PULSE 118
--- NOTE | 2024-04-21 14:08 | W.PM.OBPNV1 ---
Date of service: 04/21/24 Time of Service: 14:08 Assessment and Plan Assessment and plan (1) Encounter for insertion subdermal contraceptive: Status: Acute Assessment and plan: Nexplanon insertion site marked with pen and left upper arm cleansed with betadine and alcohol. Approximately 0.5 cc of local anesthetic injected at insertion site and deeply along insertion path. Nexplanon inserted without difficulty and patient tolerated the procedure well. Pressure dressing applied and patient was instructed to keep a bandaid in place for three days and replace the bandaid if the dressing becomes wet. The patient and I identified the device after the procedure. Signs of infection were reviewed. (2) Contraception: Status: Acute Assessment and plan: Continued post observation under Dr. Swain's care. Discussed symptoms expected with Nexplanon and Janel was instructed to follow up with [facility] if she desires for machinist helper care. Subjective Subjective Interval history: Janel requests nexplanon insertion today. Procedure reviewed with Janel and her partner Brenton. Echocardiogram done today and Dr Swain has assumed her post care. Patient comments: No complaints [place] baby status: Bottle feeding well (weight loss and LESA scoring. baby will be staying for continued observation. ) [place] feeding status: Bottle Feeding Exam Physical Exam Vital signs: Temp Pulse Resp BP Pulse Ox 98.1 F 118 H 18 148/88 H 100 04/21/24 08:00 04/21/24 13:44 04/21/24 08:00 04/21/24 13:44 04/21/24 08:00 Vital Signs Reviewed: Yes Constitutional Constitutional: no acute distress Results Hemoglobin/Hematocrit: Hgb 7.2 g/dL (11.2-15.7) L 04/20/24 12:13 Hct 23.7 % (36.0-46.0) L 04/20/24 12:13 Abnormal Lab Findings: Abnormal Labs 04/17/24 04/17/24 04/17/24 00:35 00:50 18:00 WBC 11.53 H RBC 2.73 L Hgb 7.1 L D Hct 22.5 L MCH 26.0 L MCHC 31.6 L RDW MPV 11.6 H Glucose Calcium 8.1 L Total Bilirubin 0.17 L AST 40 H Alkaline Phosphatase 153 H Total Protein 5.3 L Albumin 1.8 L Ur Amphetamines Screen Positive A Urine Cocaine Screen Positive A Hepatitis C Antibody Reactive A HCV RNA Qual (PCR) Detected A Hepatitis C RNA Quant [id number] H 04/18/24 04/18/24 04/19/24 08:55 13:33 11:05 WBC RBC Hgb Hct MCH MCHC RDW MPV Glucose 113 H Calcium 8.3 L Total Bilirubin < 0.10 L AST 43 H Alkaline Phosphatase 167 H Total Protein 5.6 L Albumin 1.9 L Ur Amphetamines Screen Positive A Urine Cocaine Screen Positive A Positive A Hepatitis C Antibody HCV RNA Qual (PCR) Hepatitis C RNA Quant 04/20/24 12:13 WBC 11.67 H RBC 2.79 L Hgb 7.2 L Hct 23.7 L MCH 25.8 L MCHC 30.4 L RDW 15.2 H MPV Glucose Calcium 7.7 L Total Bilirubin 0.11 L AST 49 H Alkaline Phosphatase 148 H Total Protein 6.2 L Albumin 2.1 L Ur Amphetamines Screen Urine Cocaine Screen Hepatitis C Antibody HCV RNA Qual (PCR) Hepatitis C RNA Quant Hemorrrhage Note Hemorrhage Recognized Date Hemorrhage Recognized: 04/17/24 Time Hemorrhage Recognized: 00:18 Call for Help Date: 04/17/24 Time: 00:18 2nd RN in Room Date: 04/17/24 Time: 00:05 2nd RN: Yeny Stafford Provider in Room Date: 04/17/24 Time: 00:14 Provider: Jill Stafford RN Scientific Process Operator Notified Date: 04/17/24 Time: 00:18 RN Scientific Process Operator on Floor Date: 04/17/24 Time: 23:55 Scientific Process Operator: Alex OTOOLE Scale in Room Date: 04/17/24 Time: 00:20 OB Emergency Cart at Bedside Date: 04/17/24 Time: 00:20 Suarez Catheter Urinary Catheter Date of Insertion: 04/17/24 Time of insertion: 00:49 Inserted by: JAD Stafford Straight Cath Second Provider in Room Date: 04/17/24 Time: 00:50 Provider: Ilene Garcia Total Blood Loss for PPH Event Quantitative Blood Loss: 1,400 Labs Drawn Labs Drawn: Yes
--- NOTE | 2024-04-21 15:12 | W.PM.OBPNV1 ---
Date of service: 04/21/24 Time of Service: 15:12 Assessment and Plan Assessment and plan (1) Encounter for insertion subdermal contraceptive: Status: Acute Assessment and plan: CNM service placed Nexplanon with pt's verbal consent today. Well tolerated. (2) Gestational hypertension without significant proteinuria: Status: Acute Assessment and plan: BP laible. Will begin Labetalol 100mg BID. (3) Substance use disorder: Status: Acute Assessment and plan: She will continue with Subutex 8mg/day while an inpatient (4) History of inadequate care: Status: Acute Assessment and plan: DCF involved and will be following pt after discharge. If infant has appropriate wt gain overnight pt and will be discharged to home. Subjective Subjective Interval history: PPD 5 for 28yo female who remains inpatient after precipitous on 04/17/24 of viable female infant. Limited care precluded any knowledge of pt's psychosocial and medical issues immediately following her delivery. Medical issues that have been addressed since delivery: -History of tricuspid regurgitation. 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 Maternal ECHO performed today. Nl LVEF. Nl cardiac chambers. Mild TR - hemorrhage. PPD 1 Hct 7.2 s/p Iron infusion x 2 days. -AM maternal BP : 140/108/. P 115 BPM. [facility] consulted and offered admission if she showed evidence of cardiac decompensation. -Hepatitis C. Viral load 385K. Nl LFTs. Neg HIV. Psychosocial issues -Hx of IV drug use. UDS + Cocaine. Pt denies current cocaine use. Her partner who is a recovered addict was unaware of pt's recent cocaine use. Pt counseled not to breastfeed . DCF has opened a case on the family secondary to drug use and lack of care. Pt is planning to be discharged to home with her once appropriate infant weight gain occurs. -MAT. Pt has been receiving Rx for Subutex 8mg TID thru [facility] in [facility]. Her prescribing provider is no longer working there. She reports that she does always use all of the 24mg Subutex prescription in the course of a day. She is interested in changing her MAT clinic to [facility] in [facility] and was given info from Derik Richmond [facility] regarding applying for [facility]. She has received 8mg Subutex/day while an inpatient. -Anxiety. Pt has a prescription for Ativan which she uses for anxiety TID PRN. She has received Ativan TID PRN while inpatient. Exam Physical Exam Vital signs: Temp Pulse Resp BP Pulse Ox 98.1 F 118 H 18 148/88 H 100 04/21/24 08:00 04/21/24 13:44 04/21/24 08:00 04/21/24 13:44 04/21/24 08:00 Vital Signs Reviewed: Yes Notable Details: Pt reports longstanding hx of tachycardia. BP improved prior to Labetalol. Constitutional Constitutional: agitated (walking around room when visiting, pressured speech. ) Neck Exam Neck Exam: Normal Respiratory Exam Respiratory Exam: Normal Abdominal Exam Comments: deferred Rectal Exam Rectal Exam: Not Done Extremities Exam Extremity Exam: Edema (L pedal edema. No erythema) and Full ROM Back/Spine/Pelvis Exam Back Exam: Not Done Skin Exam Skin Exam: Normal (POt discontinued the PICC herself. Site examined by entry level staff accountant.) Psychiatric Exam Psychiatric Exam: Abnormal (pressured speech, tangential thought, constant walking. ) Results Hemoglobin/Hematocrit: Hgb 7.2 g/dL (11.2-15.7) L 04/20/24 12:13 Hct 23.7 % (36.0-46.0) L 04/20/24 12:13 Abnormal Lab Findings: Abnormal Labs 04/17/24 04/17/24 04/17/24 00:35 00:50 18:00 WBC 11.53 H RBC 2.73 L Hgb 7.1 L D Hct 22.5 L MCH 26.0 L MCHC 31.6 L RDW MPV 11.6 H Glucose Calcium 8.1 L Total Bilirubin 0.17 L AST 40 H Alkaline Phosphatase 153 H Total Protein 5.3 L Albumin 1.8 L Ur Amphetamines Screen Positive A Urine Cocaine Screen Positive A Hepatitis C Antibody Reactive A HCV RNA Qual (PCR) Detected A Hepatitis C RNA Quant [id number] H 04/18/24 04/18/24 04/19/24 08:55 13:33 11:05 WBC RBC Hgb Hct MCH MCHC RDW MPV Glucose 113 H Calcium 8.3 L Total Bilirubin < 0.10 L AST 43 H Alkaline Phosphatase 167 H Total Protein 5.6 L Albumin 1.9 L Ur Amphetamines Screen Positive A Urine Cocaine Screen Positive A Positive A Hepatitis C Antibody HCV RNA Qual (PCR) Hepatitis C RNA Quant 04/20/24 12:13 WBC 11.67 H RBC 2.79 L Hgb 7.2 L Hct 23.7 L MCH 25.8 L MCHC 30.4 L RDW 15.2 H MPV Glucose Calcium 7.7 L Total Bilirubin 0.11 L AST 49 H Alkaline Phosphatase 148 H Total Protein 6.2 L Albumin 2.1 L Ur Amphetamines Screen Urine Cocaine Screen Hepatitis C Antibody HCV RNA Qual (PCR) Hepatitis C RNA Quant Hemorrrhage Note Hemorrhage Recognized Date Hemorrhage Recognized: 04/17/24 Time Hemorrhage Recognized: 00:18 Call for Help Date: 04/17/24 Time: 00:18 2nd RN in Room Date: 04/17/24 Time: 00:05 2nd RN: Yeny Stafford Provider in Room Date: 04/17/24 Time: 00:14 Provider: Jill Stafford RN Accounts Specialist Notified Date: 04/17/24 Time: 00:18 RN Accounts Specialist on Floor Date: 04/17/24 Time: 23:55 Accounts Specialist: Alex Meek QBL Scale in Room Date: 04/17/24 Time: 00:20 OB Emergency Cart at Bedside Date: 04/17/24 Time: 00:20 Suarez Catheter Urinary Catheter Date of Insertion: 04/17/24 Time of insertion: 00:49 Inserted by: JAD Stafford Straight Cath Second Provider in Room Date: 04/17/24 Time: 00:50 Provider: Ilene Garcia Total Blood Loss for PPH Event Quantitative Blood Loss: 1,400 Labs Drawn Labs Drawn: Yes
[2024-04-21] MEDS: Labetalol 100 MG TAB PO (15:22)
--- NOTE | 2024-04-21 15:26 | NUR.NOTE ---
This user walked into pts room around 14:37 to find blood on floor and pt holding paper towels to upper right arm. STEVEDORING SUPERVISOR student present at bedside holding , states that pt pulled midline out. Upon further assessment, midline site actively bleeding and pt stated she put cathether in sharps container. Pressure applied to site with gauze and 2nd RN called to bedside. EVS paged to open sharps container to visualize cathether, catheter appears intact. Bleeding stopped and gauze/tape dressing applied. Anesthesia team (ANDRÉS Purcell) notified and no concerns from their side, OB provider (MD Aarno) notified and no concerns from OB side either. Pt reports slight tenderness to right upper arm which she states is consistent with site even prior to midline removal. Nursing Note:
[2024-04-21 16:45] VITALS: BP 123/85
[2024-04-21 20:00] VITALS: BP 145/85; PULSE 114; RESP 16; TEMP 36.8; O2SAT 98
[2024-04-21] MEDS: Ibuprofen 600 MG TAB PO (20:42)
[2024-04-21] MEDS: Docusate Sodium 100 MG CAP PO (20:42)
[2024-04-22 00:21] VITALS: BP 124/67
[2024-04-22 07:50] VITALS: BP 118/83; PULSE 110; RESP 18; TEMP 36.8; O2SAT 99
[2024-04-22] MEDS: Docusate Sodium 100 MG CAP PO (07:53)
[2024-04-22] MEDS: Citalopram 20 MG TAB PO (07:53)
[2024-04-22] MEDS: Labetalol 100 MG TAB PO (07:55)
[2024-04-22] MEDS: LORazepam 1 MG TAB 2 MG PO (07:58)
--- NOTE | 2024-04-22 08:41 | W.PM.OBDISCH ---
Date of service: 04/22/24 Time of Service: 08:41 DS: Diagnosis Discharge Diagnosis (1) Encounter for insertion subdermal contraceptive: Status: Acute (2) Gestational hypertension without significant proteinuria: Status: Acute (3) Substance use disorder: Status: Acute (4) History of inadequate care: Status: Acute Discharge Plan Disposition Patient Disposition: Home Condition: Improving Discharge Details Reason For Visit: Labor Admit Date/Time: 04/16/24 23:50 Admit Provider: Jill Stafford Attending Provider: Jill Stafford Primary Care Provider: Unknown,Unknown Hospital Course Hospital Course: 28yo female who discharged HD 5 after precipitous on 04/17/24 of viable female named Radha, Wt [id number]. Pt's limited care precluded any knowledge of pt's psychosocial and medical issues immediately following her delivery. Medical issues that have been addressed since delivery: -History of tricuspid regurgitation. 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 Maternal ECHO performed today. Nl LVEF. Nl cardiac chambers. Mild TR - hemorrhage. PPD 1 Hct 7.2 s/p Iron infusion x 2 days. -AM maternal BP : 140/108/. P 115 BPM. [facility] consulted and offered admission if she showed evidence of cardiac decompensation. With pt's nl ECHO she was started on Labetalol 100mg BID with normalization of BPs at time of discharge. -Hepatitis C. Viral load 385K. Nl LFTs. Neg HIV. -Contraception. Nexplanon inserted 04/21/24. Psychosocial issues -Hx of IV drug use. UDS + Cocaine. Pt denies current cocaine use. Her partner who is a recovered addict was unaware of pt's recent cocaine use. Pt counseled not to breastfeed . DCF has opened a case on the family secondary to drug use and lack of care. Pt is planning to be discharged to home with her wiith frequent checks of infant's weight gain. -MAT. Pt has been receiving Rx for Subutex 8mg TID thru [facility] in [facility]. Her prescribing provider is no longer working there. She reports that she does always use all of the 24mg Subutex prescription in the course of a day. She is interested in changing her MAT clinic to [facility] in [facility] and was given assistance applying for [facility] services. Initially she received 8mg Subutex/day while an inpatient. Her dose was increased to 8mg Subutex BID the day prior to discharge. -Anxiety. Pt has a prescription for Ativan which she uses for anxiety TID PRN. She has received Ativan TID PRN while inpatient. Home Meds and New Rx's Prescriptions: No Action dextroamphetamine-amphetamine [Adderall XR] 20 mg capsule,extended release 24hr 20 mg PO DAILY lorazepam 2 mg tablet 2 mg PO TID PRN citalopram 40 mg tablet 20 mg PO DAILY buprenorphine HCl 8 mg tablet, sublingual 8 mg sublingual DAILY Discharge Instructions Additional Instructions: Schedule and keep follow up appointments at [address] Swain, call for any and all concerns. Stand Alone Forms: BC Post Vaginal Deliver Activity:: Activity as Tolerated Equipment/Supplies:: No Equipment Needed Diet:: Normal Diet Discharge Orders Discharge Orders: Discharge Order (Routine); Ordered 04/22/24 Ordered By: Tiffani Swain OB:DS Summary Summary Vaginal Delivery Method: Spontaneaous Episiotomy Description: None Laceration Description: None Laceration Extension: N/A Contraception Discussed Contraception Discussed: Yes Contraceptive Plan: Levonorgestrel Implant (inserted 04/21/24.), [place] Infant Gender-Baby A: Female (Name: Radha) weight: 5 lb 14.887 oz Disposition of Baby A: Home Status at Discharge Functional status at discharge: independent ambulation Overall status at discharge: patient is progressing back to baseline Mental Status: mental status grossly normal (baseline anxiety, flight of ideas and rapid speech.) Speech and Movement: restless Mood: labile mood Affect: anxious affect Time Spent with Patient providing and/or coordinating discharge services: Greater than 30 minutes Quality:SDOH Health Related Social Needs: Health related social needs education (Z55.6) Exam Physical Exam Vital signs: Temp Pulse Resp BP Pulse Ox 98.2 F 110 H 18 118/83 99 04/22/24 07:50 04/22/24 07:50 04/22/24 07:50 04/22/24 07:50 04/22/24 07:50 Vital Signs Reviewed: Yes Notable Details: BP improved. pulse remains elevated. Constitutional Comments: anxious. rapid conversation. Neck Exam Neck Exam: Normal Respiratory Exam Respiratory Exam: Normal Cardiovascular Exam Cardiovascular Exam: Abnormal (HHR tachycardia) Abdominal Exam Abdomen: Other (non-tender.) Fundal Exam Fundus: Below Umbilicus and Firm Rectal Exam Rectal Exam: Not Done Extremities Exam Extremity Exam: Edema (L greater than R pedal edema), Pulses Intact and Warm to Touch; negative Redness Back/Spine/Pelvis Exam Back Exam: Not Done Skin Exam Skin Exam: Normal Neurological Exam Neurological Exam: Normal Psychiatric Exam Psychiatric Exam: Abnormal (rapid speech. anxious.) PFSH All Active Problems (Updated 04/22/24 @ 12:09 by Tiffani Swain MD) Encounter for insertion subdermal contraceptive (Acute) Contraception (Acute) Term of female (Acute) Anemia associated with acute blood loss (Acute) , delivered (Acute) Gestational hypertension without significant proteinuria (Acute) Anxiety (Chronic) Morgellons syndrome (Acute) Substance use disorder (Acute) History of inadequate care (Acute) Medical History MSSA bacteremia 04/17/18 Septic pulmonary embolism 06/04/2018. treated at [facility] Hepatitis C antibody positive in blood PTSD (post-traumatic stress disorder) History of endocarditis in adulthood 05/25/2018 History of pulmonary embolism 06/04/2018 [facility] Tricuspid valve regurgitation hemorrhage, third stage, delivered History of intravenous drug abuse Social History Smoking/Tobacco Use Status: Current every day Tobacco Type: e-cigarettes Smoking risk assessment performed?: Yes Alcohol Intake: former Substance use type: former substance user Details: Addarall 20 mg once a day citalopram 20mg once a day lorazepam tid 2mg buprenorphine 8mg BID Housing: house Do you feel safe at home: Yes Do you feel safe in your relationship?: Yes History History 3 Para 1 Hx # Term Pregnancies 1 Multiple births 0 Hx # Pregnancies 0 Ectopic pregnancies 0 AB induced 1 Hx Number of Living Children 1 AB spontaneous 0 Past Pregnancies Del. Date GA/Weeks # Preg Succ Route Wgt Sex Labor Lgth Anesthesia Location Prov Compl 03/24/20 [facility], Dr. Dian Riley MD 04/17/24 04/17/24 35 No Yes vaginal Female JK Delivery Date: 03/24/20 Last Updated by: Enid German CNM IABrittney Delivery Date: 04/17/24 Last Updated by: Tiffani Swain MD Precipitous vaginal delivery. limited care. DS: Data Vitals/I&O Vitals and I&O: Vital Signs Temperature 98.2 F 04/22/24 07:50 Temperature Source Oral 04/22/24 07:50 Pulse 110 H 04/22/24 07:50 Pulse Rhythm Regular 04/21/24 20:00 Respiratory Rate 18 04/22/24 07:50 Respiratory Depth Normal 04/21/24 08:00 Blood Pressure 118/83 04/22/24 07:50 Blood Pressure Mean 94 04/22/24 07:50 Pulse Oximetry 99 04/22/24 07:50 Pain Level 5 04/18/24 12:54 Comment Denies headache, blurry vision, or RUQ pain. 04/21/24 08:00 Intake & Output 04/21/24 04/21/24 04/22/24 11:59 23:59 11:59 Intake Total 681.5 / 681.5 Balance 681.5 / 681.5 Intake: IV 681.5 / 681.5 Other: Urine Color Pale Yellow Data Completed and Pending Labs on day of discharge: Labs from last 24 hours 04/21/24 04/17/24 09:15 00:35 Urine Opiates Screen Negative Ur Buprenorphine Pending Ur Norbuprenorphine Pending Urine Methadone Screen Negative Urine Fentanyl Screen Pending Ur Barbiturates Screen Negative Ur Tricyclics Screen Negative Ur Amphetamines Screen Negative U Benzodiazepines Scrn Negative Urine Cocaine Screen Negative Ur THC Screen Negative HCV RNA Qual (PCR) Detected A Hepatitis C RNA Quant [id number] H Add-On Test Request DONE
[2024-04-22 11:39] LABS: Fentanyl Scr w/Rfx Confirm Negative ng/mL (<1)
[2024-04-23 13:17] LABS: Benzoylecgonine >250000 ng/mL (Cutoff: 50); Cocaine 10864 ng/mL (Cutoff: 50); Cocaine Interpretation Positive.
[2024-04-26 16:19] LABS: Norbuprenorphine 417.9 ng/mL (Cutoff: 2.5)
== END 2024-04-22 13:15 | disposition home or self-care (01) | DRG 805 ==
PROVIDERS: Advanced Practice Midwife; Obstetrics & Gynecology; Admitting Provider Advanced Practice Midwife; Visit Provider Advanced Practice Midwife
DX: O60.14X0 Preterm labor third trimester with preterm delivery third trimester, not applicable or unspecified (principal); O99.42 Diseases of the circulatory system complicating childbirth; Z37.0 Single live birth; O72.0 Third-stage hemorrhage; O99.324 Drug use complicating childbirth; O98.42 Viral hepatitis complicating childbirth; D62 Acute posthemorrhagic anemia; I36.2 Nonrheumatic tricuspid (valve) stenosis with insufficiency; Z3A.35 35 weeks gestation of pregnancy; O62.3 Precipitate labor; B19.20 Unspecified viral hepatitis C without hepatic coma; O99.344 Other mental disorders complicating childbirth; F43.10 Post-traumatic stress disorder, unspecified; F22 Delusional disorders; Z86.711 Personal history of pulmonary embolism; O13.4 Gestational [pregnancy-induced] hypertension without significant proteinuria, complicating childbirth; F14.10 Cocaine abuse, uncomplicated; O99.02 Anemia complicating childbirth; O99.334 Smoking (tobacco) complicating childbirth; F17.290 Nicotine dependence, other tobacco product, uncomplicated; F41.9 Anxiety disorder, unspecified; Z30.017 Encounter for initial prescription of implantable subdermal contraceptive
CPT/HCPCS: 11981; 36410; 36415; 80053; 80307; 80348; 85027; 86787; 86803; 86850; 86900; 86901; 87340; 87389; 87522; 80353; 82565; 84156; 86762; 86780; 87081; 88307; 93306; J1756; J2590; J3490

== ENCOUNTER 2024-04-24 20:24 | Inpatient (IN) | payer MEDICAID, SELFPAY ==
[2024-04-24 20:26] VITALS: BP 135/83; PULSE 110; RESP 18; TEMP 36.6; O2SAT 98
[2024-04-24 20:31] VITALS: BP 135/83; PULSE 110; RESP 18; TEMP 36.6; O2SAT 98
--- NOTE | 2024-04-24 21:01 | W.ED.GENAD ---
Discharge Plan Disposition Patient Disposition: Admit to [facility] Condition: Stable Discharge Details Clinical Impression: Acute deep vein thrombosis (DVT) of right upper extremity, Anemia associated with acute blood loss Primary Care Provider: None,None ED Provider: Regina Nolasco Home Meds and New Rx's Prescriptions: No Action labetalol 100 mg tablet 100 mg PO BID Qty: 60 1RF lorazepam 2 mg tablet 2 mg PO TID PRN citalopram 40 mg tablet 20 mg PO DAILY buprenorphine HCl 8 mg tablet, sublingual 8 mg sublingual DAILY dextroamphetamine-amphetamine 30 mg capsule,extended release 24hr 30 mg PO DAILY Patient Comments: take 1 capsule by mouth twice a day dextroamphetamine-amphetamine [Adderall] 10 mg tablet 10 mg PO DAILY Patient Comments: take 1 tablet by mouth twice a day doxycycline hyclate 100 mg capsule 100 mg PO BID Patient Comments: take 1 capsule by mouth twice a day HPI <Regina Nolasco NP - Last Filed: 04/25/24 00:19> General Mode of arrival: ambulatory. Date/Time Provider Initiated Documentation: 04/24/24 20:31. Limitations to Documentation: no limitations. Information obtained by: patient, RN notes reviewed and old records reviewed. HPI Narrative: 28-year-old female who was discharged from inpatient hospital after a vaginal delivery presents to the ER with right arm swelling, ecchymosis and warmth. Patient had a PICC line in that arm and reports what sounds like iron infusion extravasion. She reports pain after the second infusion of iron. She reports that over the last couple of days swelling has increased redness and warmth. She is unable to fully flex her elbow, she is only able to bend it approximately 50 degrees wrist is has full range of motion. Related Data Home Medications ?Medication ?Instructions ?Recorded ?Confirmed buprenorphine HCl 8 mg sublingual 8 mg sublingual DAILY 02/29/24 04/24/24 tablet citalopram 40 mg tablet 20 mg PO DAILY 02/29/24 04/24/24 lorazepam 2 mg tablet 2 mg PO TID PRN 04/17/24 04/24/24 labetalol 100 mg tablet 100 mg PO BID #60 tabs 04/22/24 04/24/24 dextroamphetamine-amphetamine 10 10 mg PO DAILY 04/24/24 04/24/24 mg tablet (Adderall) dextroamphetamine-amphetamine ER 30 mg PO DAILY 04/24/24 04/24/24 30 mg 24hr capsule,extend release doxycycline hyclate 100 mg capsule 100 mg PO BID 04/24/24 04/24/24 Previous Rx's ?Medication ?Instructions ?Recorded labetalol 100 mg tablet 100 mg PO BID #60 tabs 04/22/24 Allergies Allergy/AdvReac Type Severity Reaction Status Date / Time bacitracin (From Neosporin Allergy Intermediate Skin Rash Verified 04/24/24 20:32 ([id number])) neomycin (From Neosporin Allergy Intermediate Skin Rash Verified 04/24/24 20:32 ([id number])) polymyxin B (From Neosporin Allergy Intermediate Skin Rash Verified 04/24/24 20:32 ([id number])) General Stated Complaint: Cellulitis PRINCESS: 3 Review of Systems <Regina Nolasco NP - Last Filed: 04/25/24 00:19> All systems reviewed & are unremarkable except as noted in HPI and below Exam <Regina Nolasco NP - Last Filed: 04/25/24 00:19> Narrative Exam Narrative: Constitutional: Alert and oriented x3. Appears stated age. Normal body habitus. Pale. Head: Normocephalic, no trauma. Eyes: Pupils PERRL, Red reflex noted, EOM's intact. Eyelids symmetrical without lesions, discharge, or swelling. ENT: Bilateral TM's WNL, External ear normal to inspection, no mastoid TTP, swelling, or erythema, Nasal turbinates WNL, no nasal discharge. Normal dentition, Posterior pharynx WNL, no exudate. Chest: Tachycardic, normal S1, S2, distal pulses intact. Resp: Lungs clear to auscultation bilaterally, no wheezes, rales, or rhonchi. Abdomen: Soft, non-distended, Normoactive bowel sounds all 4 quads. Musculoskeletal: Normal gait, Moves all 4 extremities without difficulty. Skin: See extremity diagram below, large swelling noted decreased range of motion, ecchymosis erythema and warmth noted to right upper extremity, capillary refill less than 2 sec. Neurologic: Cranial nerves II-XII intact. Alert and oriented x 3. Motor: No deficits noted. Sensory: Intact bilaterally all 4 extremities. Hematologic/Lymphatic: See extremity diagram below Extrem Right upper extremity: edema, shoulder/upper arm Details: abnormal to inspection, swelling and ecchymosis mid posterior and elbow/forearm Shoulder/upper arm images: 1. Swelling, ecchymosis, erythema, warmth decreased range of motion Course <Regina Nolasco NP - Last Filed: 04/25/24 00:19> Vital Signs Vital signs: Vital Signs Temperature 36.6 C 04/24/24 20:26 Pulse 110 H 04/24/24 20:26 Respiratory Rate 18 04/24/24 20:26 Blood Pressure 135/83 04/24/24 20:26 Pulse Oximetry 98 04/24/24 20:26 Temperature 36.6 C 04/24/24 20:31 Temperature Source Oral 04/24/24 20: Pulse 110 H 04/24/24 20:31 Respiratory Rate 18 04/24/24 20: Blood Pressure 135/83 04/24/24 20:31 Blood Pressure Position Sitting 04/24/24 20:31 Pulse Oximetry 98 04/24/24 20:31 Oxygen Delivery Method Room Air 04/24/24 20:31 Oxygen Flow Rate 0 04/24/24 20:31 Pain Level 5 04/24/24 20:31 Comment elevates to greater pain 04/24/24 20:31 Medical Decision Making <Regina Nolasco NP - Last Filed: 04/25/24 00:19> 28-year-old female who was discharged from inpatient hospital after a vaginal delivery presents to the ER with right arm swelling, ecchymosis and warmth. Patient had a PICC line in that arm and reports what sounds like iron infusion extravasion. She reports pain after the second infusion of iron. She reports that over the last couple of days swelling has increased redness and warmth. She is unable to fully flex her elbow, she is only able to bend it approximately 50 degrees wrist is has full range of motion. 2108: Spoke with telemetry pharmacy regarding possible iron infiltration and treatment he will get back to me what he could find was cold compresses and monitoring. Differential diagnosis includes not limited to blood clot, cellulitis, extubation, internal bleeding. Labs ordered including CBC CMP procalcitonin POCUS exam performed with Kimberly Bennett there is a noncompressible vessel noted most likely DVT versus hematoma. There is some cobblestoning noted. I do recommend admission hemoglobin is 6.9 hematocrit 23.0 white blood cell count 10.93 sodium potassium within normal limits glucose 116 Patient today for evaluation is hesitant to be admitted, I do recommend observation for anticoagulation versus blood transfusion for continuing anemia DVT to her right upper extremity. 2253: Spoke with Dr. Traylor who agrees to accept her for admission. Will order heparin. 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 She was asking to leave AMA and have her IV removed however after further extensive discussion patient is agreeable to stay. At the time of this dictation patient is agreeable to staying, heparin ordered. She is alert and oriented. Pending transfer to floor. This text was generated using [employer] dictation system, please disregard any oddities of phrase or misspellings. Medical Records Medical records reviewed: Yes I reviewed the patient's medical records. Lab Data Lab results reviewed: Yes I reviewed the patient's lab results. Labs: Laboratory Tests Range/Units 04/24/24 04/24/24 21:40 22:00 WBC Cancelled 10.93 H RBC Cancelled 2.61 L Hgb Cancelled 6.9 L* Hct Cancelled 23.0 L MCV Cancelled 88 MCH Cancelled 26.4 L MCHC Cancelled 30.0 L RDW Cancelled 18.6 H Plt Count Cancelled 364 MPV Cancelled 9.8 Immature Gran % Cancelled 1.3 Neutrophils % Cancelled 71.3 Band Neutrophils % Cancelled Lymphocytes % Cancelled 19.2 Atypical Lymphs % Cancelled Monocytes % Cancelled 5.9 Eosinophils % Cancelled 1.9 Basophils % Cancelled 0.4 Metamyelocytes % Cancelled Myelocytes % Cancelled Promyelocytes % Cancelled Other Cells % Cancelled Nucleated RBC % Cancelled 0.9 H Absolute Neutrophils Cancelled 7.79 H Absolute Lymphocytes Cancelled 2.10 Absolute Monocytes Cancelled 0.64 Absolute Eosinophils Cancelled 0.21 Absolute Basophils Cancelled 0.04 RBC Morphology Cancelled Polychromasia Cancelled Hypochromasia Cancelled Poikilocytosis Cancelled Basophilic Stippling Cancelled Anisocytosis Cancelled Microcytosis Cancelled Macrocytosis Cancelled Spherocytes Cancelled Tear Drop Cells Cancelled Ovalocytes Cancelled Stomatocytes Cancelled Pal-[place] Bodies Cancelled [place] Cells/Echinocytes Cancelled Acanthocytes (Spur) Cancelled Schistocytes Cancelled PT (9.1-11.1) sec 9.2 INR (0.9-1.1) 0.9 APTT (20.6-30.2) sec 26.1 Sodium (136-145) mmol/L 140 Potassium (3.5-5.1) mmol/L 4.6 Chloride (98-107) mmol/L 104 Carbon Dioxide (21.0-32.0) mmol/L 27.2 Anion Gap (3-11) mmol/L 8.8 BUN (7-18) mg/dL 17 Creatinine (0.55-1.02) mg/dL 0.8 Est GFR (CKD-EPI 2020) (mL/min/1.73m2) 101.59 Glucose (74-106) mg/dL 116 H Calcium (8.5-10.1) mg/dL 8.4 L Magnesium (1.8-2.4) mg/dL 1.8 Total Bilirubin (0.2-1.0) mg/dL 0.23 AST (15-37) U/L 34 ALT (14-59) U/L 45 Alkaline Phosphatase (46-116) U/L 131 H Total Protein (6.4-8.2) g/dL 6.8 Albumin (3.4-5.0) g/dL 2.4 L Procalcitonin ng/mL < 0.10 Quality:[facility] Health Related Social Needs: Health related social needs education (Z55.6) [facility] <Regina Nolasco NP - Last Filed: 04/25/24 00:19> All Active Problems (Updated 04/24/24 @ 23:14 by Regina Nolasco NP) Acute deep vein thrombosis (DVT) of right upper extremity (Acute) Anemia associated with acute blood loss (Acute) , delivered (Acute) Gestational hypertension without significant proteinuria (Acute) Anxiety (Chronic) Morgellons syndrome (Acute) Substance use disorder (Acute) Medical History Encounter for insertion subdermal contraceptive Contraception MSSA bacteremia 04/17/18 Septic pulmonary embolism 06/04/2018. treated at [facility] Hepatitis C antibody positive in blood PTSD (post-traumatic stress disorder) History of endocarditis in adulthood 05/25/2018 History of pulmonary embolism 06/04/2018 [facility] Tricuspid valve regurgitation hemorrhage, third stage, delivered History of intravenous drug abuse Social History Smoking/Tobacco Use Status: Current every day Tobacco Type: e-cigarettes Smoking risk assessment performed?: Yes Alcohol Intake: former Substance use type: former substance user Details: Addarall 20 mg once a day citalopram 20mg once a day lorazepam tid 2mg buprenorphine 8mg BID Housing: house Do you feel safe at home: Yes Do you feel safe in your relationship?: Yes History History 3 Para 1 Hx # Term Pregnancies 1 Multiple births 0 Hx # Pregnancies 0 Ectopic pregnancies 0 AB induced 1 Hx Number of Living Children 1 AB spontaneous 0 Past Pregnancies Del. Date GA/Weeks # Preg Succ Route Wgt Sex Labor Lgth Anest[facility] No Yes vaginal Female JK Delivery Date: 03/24/20 Last Updated by: Enid German CNM IABrittney Delivery Date: 04/17/24 Last Updated by: Tiffani Swain MD Precipitous vaginal delivery. limited care. POCUS Exam (ED) <Kimberly March MD - Last Filed: 04/24/24 22:29> Limited Vascular Exam DATE OF EXAM: 04/24/24 TIME OF EXAM: 22:28 PROVIDER THAT PERFORMED THE STUDY: Kimberly March IS THIS A REPEAT EXAM DURING THIS ENCOUNTER: No Vascular Exam: Right upper extremity REASON FOR EXAM: Right arm pain VISUALIZED STRUCTURES: Right basilic vein and Right cephalic vein PERTINENT FINDINGS/IMPRESSION: Non compressibility right upper extremity Exam complete INCIDENTAL FINDINGS: Cobblestoning, concern for DVT
[2024-04-24 22:04] LABS: ALT 45 U/L (14-59); AST 34 U/L (15-37); Albumin 2.4 g/dL (3.4-5.0); Alkaline Phosphatase 131 U/L (46-116); Anion Gap 8.8 mmol/L (3-11); BUN 17 mg/dL (7-18); Bilirubin, Total 0.23 mg/dL (0.2-1.0); CO2 27.2 mmol/L (21.0-32.0); CREATININE 0.8 mg/dL (0.55-1.02); Calcium 8.4 mg/dL (8.5-10.1); Chloride 104 mmol/L (98-107); Estimated GFR 101.59 (mL/min/1.73m2); Glucose 116 mg/dL (74-106); Magnesium 1.8 mg/dL (1.8-2.4); Potassium 4.6 mmol/L (3.5-5.1); Sodium 140 mmol/L (136-145); Total Protein 6.8 g/dL (6.4-8.2)
[2024-04-24 22:06] LABS: Abs Immature Grans 0.14 10^3/uL (0.0-0.06); Absolute Basophil Count 0.04 10^3/uL (0.0-0.2); Absolute Eosinophil Count 0.21 10^3/uL (0.0-0.7); Absolute Neutrophil Count 7.79 10^3/uL (1.2-6.7); Basophils % 0.4 %; Eosinophils % 1.9 %; Immature Grans % 1.3 %; Lymphocytes % 19.2 %; MCH 26.4 pg (27.0-33.0); MCV 88 fL (80-95); MPV 9.8 fL (8.0-11.0); Monocytes % 5.9 %; Neutrophils % 71.3 %; Nucleated RBC 0.9 % (0.0-0.3); Platelet Count 364 10^3/uL (130-400); RBC 2.61 10^6/uL (3.93-5.22); RDW 18.6 % (11.7-14.6); RDW-SD 51.1 fL; WBC 10.93 10^3/uL (4.4-10.8)
[2024-04-24 22:08] LABS: Absolute Monocyte Count 0.64 10^3/uL (0.1-0.8); HGB 6.9 g/dL (11.2-15.7)
[2024-04-24 22:21] LABS: INR 0.9 (0.9-1.1); PTT Activated 26.1 sec (20.6-30.2); Prothrombin Time 9.2 sec (9.1-11.1)
[2024-04-24 22:24] LABS: Procalcitonin < 0.10 ng/mL
[2024-04-25] VITALS (34 sets, daily range): BP systolic 108–157; BP diastolic 63–96; PULSE 86–114; RESP 0–22; TEMP 36.6–37.2; O2SAT 91–100
--- NOTE | 2024-04-25 00:16 | W.PM.HP.N ---
Date of service: 04/25/24 Time of Service: 00:16 Assessment and Plan Assessment and plan (1) Acute deep vein thrombosis (DVT) of right upper extremity: Status: Acute Assessment and plan: The patient was recently discharged from the hospital after giving and during that stay had an IV on the RUE which it seems like was not functioning properly as blood was not able to be withdrawn and when medications/iVF was administered it was very painful. Towards the end of the stay she could feel that it was becoming more swollen. After the discharge she has had significant RUE proximal/distal swelling w/ warmth and ecchymoses of the area. On exam her RUE is warm, well perfused, good radial pulses and capillary refill. It is not firm/tense w/ low suspicion for any compartment syndrome. She does not have any ulcers/discharge for purulent cellulitis. The ER performed a RUE POCUS which revealed a non-compressible mass most likely due to DVT. While she is anemic it is best to treat her w/ anticoagulation and then consider blood transfusion if needed. In addition she should obtain a CT PE for RUE swelling and tachycardia. Suspect this episode is most likely provoked from hypercoaguability post- and defer hypercoagulable workup for now. She has had prior PE and endocarditis in 05/2018. -Obtain RUE Duplex -Obtain CT PE for RUE DVT, Tachycardia and symptoms of dyspnea -Cont w/ Heparin gtt -Monitor Hg and consider PRBC transfusion if needed -Low suspicion for infection and will defer ABX History of Present Illness History of Present Illness Chief Complaint: Right arm is swollen and painful Narrative: The patient is a 28 y/o C F w/ recent discharge from inpatient hospital after a vaginal delivery who presents to the ER with right arm swelling, ecchymosis and warmth. She had a PICC line in that arm and during her hospitalization reports of pain in the extremity when medications/IVF were administered via IV. She did have an iron infusion due acute blood loss anemia after which she began to report of increased swelling, warmth and ecchymoses of the area. Since her discharge the right upper extremity has become extremely swollen which now increased the forearm as well as her biceps. She describes this as a constant throbbing and achy pain which does not become worse if she raises her arms and it does not improve if she puts her arm down. She has not noticed any purulent discharge from the area. She has no fever or chills but has had night sweats. She does not have any chest pain, palpitations, coughing, wheezing but has noticed dyspnea. She denies any recent history of drug abuse. Review of Systems Constitutional Constitutional: Denies chills and Reports night sweats Eyes Eyes: Denies change in vision, Denies diplopia and Denies eye pain ENT Ears, Nose, Mouth, and Throat: Denies dysphagia, Denies neck pain, Denies sinus pressure and Denies sore throat Cardiovascular Cardiovascular: Denies chest pain, Denies rapid heart rate and Reports dyspnea Respiratory Respiratory: Denies cough, Reports dyspnea and Denies wheezing Gastrointestinal Gastrointestinal: Denies dysphagia, Denies diarrhea, Denies loose stools, Denies vomiting and Denies hematemesis Musculoskeletal Musculoskeletal: Denies neck pain Comments: RUE pain w/ swelling, warmth and ecchymotic areas Neurologic Neurologic: Denies abnormal speech, Denies behavioral changes and Denies localized weakness Psychiatric Psychiatric: Denies behavioral changes Allergic/Immunologic Allergic/Immunologic: Denies wheezing PFSH All Active Problems (Updated 04/24/24 @ 23:14 by Regina Nolasco NP) Acute deep vein thrombosis (DVT) of right upper extremity (Acute) Anemia associated with acute blood loss (Acute) , delivered (Acute) Gestational hypertension without significant proteinuria (Acute) Anxiety (Chronic) Morgellons syndrome (Acute) Substance use disorder (Acute) Medical History Encounter for insertion subdermal contraceptive Contraception MSSA bacteremia 04/17/18 Septic pulmonary embolism 06/04/2018. treated at [facility] Hepatitis C antibody positive in blood PTSD (post-traumatic stress disorder) History of endocarditis in adulthood 05/25/2018 History of pulmonary embolism 06/04/2018 [facility] Tricuspid valve regurgitation hemorrhage, third stage, delivered History of intravenous drug abuse Social History Smoking/Tobacco Use Status: Current every day Tobacco Type: e-cigarettes Smoking risk assessment performed?: Yes Alcohol Intake: former Substance use type: former substance user Details: Addarall 20 mg once a day citalopram 20mg once a day lorazepam tid 2mg buprenorphine 8mg BID Housing: house Do you feel safe at home: Yes Do you feel safe in your relationship?: Yes History History 3 Para 1 Hx # Term Pregnancies 1 Multiple births 0 Hx # Pregnancies 0 Ectopic pregnancies 0 AB induced 1 Hx Number of Living Children 1 AB spontaneous 0 Past Pregnancies Del. Date GA/Weeks # Preg Succ Route Wgt Sex Labor Lgth Anesthesia Location Prov [facility] 03/24/20 [facility], Dr. Dian Riley MD 04/17/24 04/17/24 33 No Yes vaginal Female JK Delivery Date: 03/24/20 Last Updated by: Enid German CNM IABrittney Delivery Date: 04/17/24 Last Updated by: Tiffani Swain MD Precipitous vaginal delivery. limited care. Meds Allergies and Home Medications Allergies Allergy/AdvReac Type Severity Reaction Status Date / Time bacitracin (From Neosporin Allergy Intermediate Skin Rash Verified 04/24/24 20:32 ([id number])) neomycin (From Neosporin Allergy Intermediate Skin Rash Verified 04/24/24 20:32 ([id number])) polymyxin B (From Neosporin Allergy Intermediate Skin Rash Verified 04/24/24 20:32 ([id number])) Home Medications ?Medication ?Instructions ?Recorded ?Confirmed ?Type buprenorphine HCl 8 mg sublingual 8 mg sublingual DAILY 02/29/24 04/24/24 History tablet citalopram 40 mg tablet 20 mg PO DAILY 02/29/24 04/24/24 History lorazepam 2 mg tablet 2 mg PO TID PRN 04/17/24 04/24/24 History labetalol 100 mg tablet 100 mg PO BID #60 tabs 04/22/24 04/24/24 Rx dextroamphetamine-amphetamine 10 10 mg PO DAILY 04/24/24 04/24/24 History mg tablet (Adderall) dextroamphetamine-amphetamine ER 30 mg PO DAILY 04/24/24 04/24/24 History 30 mg 24hr capsule,extend release doxycycline hyclate 100 mg capsule 100 mg PO BID 04/24/24 04/24/24 History Exam Const General: cooperative and healthy appearing Orientation: alert, awake and oriented x3 Limitations: mental status not altered HENMT Head: normal to inspection Ears: hearing grossly normal bilaterally General nose exam: external nose normal Face and sinus: normal facial exam Eyes Alignment and Position: alignment normal Eyelids: eyelids normal Conjunctivae: conjunctivae normal Neck Neck: normal visual inspection and full ROM Resp Effort & Inspection: normal respiratory effort and able to speak in complete sentences Cardio Rate: tachycardic Rhythm: regular rhythm Heart Sounds: S1 normal and S2 normal GI Inspection: normal to inspection Palpation: soft Percussion: normal to percussion Auscultation: normal bowel sounds Skin Other: RUE w/ increased swelling, warmth and ecchymoses of the area Neuro General: patient alert, patient awake and patient oriented x3 Cranial Nerves: CN's II-XI intact bilaterally Extrem Right upper extremity: edema Results Labs 04/24/24 22:00 04/24/24 21:40 Labs: Laboratory Results - last 24 hr 04/24/24 04/24/24 21:40 22:00 WBC Cancelled 10.93 H RBC Cancelled 2.61 L Hgb Cancelled 6.9 L* Hct Cancelled 23.0 L MCV Cancelled 88 MCH Cancelled 26.4 L MCHC Cancelled 30.0 L RDW Cancelled 18.6 H Plt Count Cancelled 364 MPV Cancelled 9.8 Immature Gran % Cancelled 1.3 Neutrophils % Cancelled 71.3 Band Neutrophils % Cancelled Lymphocytes % Cancelled 19.2 Atypical Lymphs % Cancelled Monocytes % Cancelled 5.9 Eosinophils % Cancelled 1.9 Basophils % Cancelled 0.4 Metamyelocytes % Cancelled Myelocytes % Cancelled Promyelocytes % Cancelled Other Cells % Cancelled Nucleated RBC % Cancelled 0.9 H Absolute Neutrophils Cancelled 7.79 H Absolute Lymphocytes Cancelled 2.10 Absolute Monocytes Cancelled 0.64 Absolute Eosinophils Cancelled 0.21 Absolute Basophils Cancelled 0.04 RBC Morphology Cancelled Polychromasia Cancelled Hypochromasia Cancelled Poikilocytosis Cancelled Basophilic Stippling Cancelled Anisocytosis Cancelled Microcytosis Cancelled Macrocytosis Cancelled Spherocytes Cancelled Tear Drop Cells Cancelled Ovalocytes Cancelled Stomatocytes Cancelled Pal-[place] Bodies Cancelled [place] Cells/Echinocytes Cancelled Acanthocytes (Spur) Cancelled Schistocytes Cancelled PT 9.2 INR 0.9 APTT 26.1 Sodium 140 Potassium 4.6 Chloride 104 Carbon Dioxide 27.2 Anion Gap 8.8 BUN 17 Creatinine 0.8 Est GFR (CKD-EPI 2020) 101.59 Glucose 116 H Calcium 8.4 L Magnesium 1.8 Total Bilirubin 0.23 AST 34 ALT 45 Alkaline Phosphatase 131 H Total Protein 6.8 Albumin 2.4 L Procalcitonin < 0.10 Last Vital Signs Temp 36.6 C 04/24/24 20:31 Pulse 110 H 04/24/24 20:31 Resp 18 04/24/24 20:31 BP 135/83 04/24/24 20:31 Pulse Ox 98 04/24/24 20:31 Time Spent Time spent with Patient: 55-74 minutes Time was spent: preparing to see the patient(eg.review tests), obtaining and/or reviewing separately otained hiistory, ordering medications,tests, procedures, referring, communicating with other health vehicle care specialist, indepentently interpreting results, counseling the patient and care coordination
[2024-04-25] MEDS: Omnipaque 350 MG/ML 100 ML BTL 85 ML IJ (01:39)
[2024-04-25] MEDS: Normal Saline - Diluent 50 ML VIAL IJ (01:39)
--- NOTE | 2024-04-25 02:10 | W.ED.PROC ---
Date of service: 04/25/24 Time of Service: 02:10 Procedures EJ/Peripheral Line Arm L: Time Out Performed: Yes Skin Cleansed in Sterile Fashion: Yes Size (gauge): 20 IV Secured and Dressing Applied: Yes Patient Tolerated Procedure: well and no complications Additional Comments: Candidate vein examined with linear array probe - confirmed collapsibility, lack of pulsatility, and proper anatomic location. Using aseptic technique, IV catheter inserted with flash of blood noted, flow of venous blood confirmed. Flushes easily and without pain. No hematoma or complications noted. IV secured. Patient tolerated well. Medical Decision Making Quality:SDOH Health Related Social Needs: Health related social needs education (Z55.6)
[2024-04-25] MEDS: Heparin in 0.45% NaCl 25,000 UNIT/250 ML BAG 13 UNIT IVINF ×2 (02:48→17:44)
--- NOTE | 2024-04-25 02:58 | DI.CT_ITS ---
Exam(s) CT CHEST PE CTA EXAM: CT CHEST PE CTA CLINICAL HISTORY: RUE DVT w/ Tachycardia and reports of dyspnea. TECHNIQUE: Imaging Protocol: Axial CT angiography was performed with multi-slice acquisition and mu lti-planar reconstructions as well as axial, coronal and sagittal MIP reconstructions. Computer aided detection (CAD) was utilized. CONTRAST MATERIAL: Intravenous: Omnipaque 350 Contrast volume:85 ml COMPARISON: No exams were available for comparison FINDINGS: Pulmonary Arteries: No evidence of filling defect to suggest pulmonary emboli. Mediastinum and [place]: No dominant adenopathy or fluid collection. Pulmonary parenchyma: Of limited evaluation due to expiratory changes. No consolidation or dominant measurable mass. Pleura: No effusion or pneumothorax. Heart: The heart is not dilated. No coronary artery calcifications are seen. Aorta: Thoracic aorta non-dilated. No dissection. Upper abdomen: No acute findings. Bones: Unremarkable for age. Tubes, Catheters, and Lines: None Soft tissues: Unremarkable. IMPRESSION: No evidence of pulmonary embolism or other acute abnormality. RADIATION DOSE DELIVERED: Total DLP DATA REPOSITORY: All CT scans at this facility are submitted to the National Radiology Data Registry (NRDR) Dose Index Registry (DIR) with the [employer] (A[employer]). RADIATION OPTIMIZATION: All CT scans at this facility use at least one of these dose optimization te chniques: automated exposure control; mA and/or kV adjustment per patient size (includes targeted exa ms where dose is matched to clinical indication); or iterative reconstruction.
--- NOTE | 2024-04-25 03:40 | DI.VRAD_ITS ---
PROCEDURE INFORMATION: Exam: CTA Chest With Contrast Exam date and time: 04/25/2024 2:44 AM Age: 28 years old Clinical indication: Other: Rue dvt w/ tachycardia and reports of dyspnea TECHNIQUE: Imaging protocol: Computed tomographic angiography of the chest with contrast. Exam focused on the arteries. 3D rendering (Not supervised by radiologist): MIP and/or 3D reconstructed images were created by the technologist. Contrast material: OMNIPAQUE 350; Contrast volume: 85 ml; Contrast route: INTRAVENOUS (IV); COMPARISON: No relevant prior studies available. FINDINGS: Pulmonary arteries: Normal. No pulmonary emboli. Aorta: Unremarkable. No aortic aneurysm. No aortic dissection. Lungs: Lungs are clear allowing for expiratory phase imaging. Pleural spaces: Unremarkable. No pneumothorax. No pleural effusion. Heart: Unremarkable. No pericardial effusion. Esophagus: Unremarkable. Lymph nodes: Unremarkable. No enlarged lymph nodes. Bones/joints: Unremarkable. No acute fracture. Soft tissues: Unremarkable. IMPRESSION: No acute findings. Dictated and Authenticated by: Issa Rizvi MD. Ordering:KARIS Miller MD
[2024-04-25 06:53] LABS: HCT 22.8 % (36.0-46.0); MCH 25.6 pg (27.0-33.0); MCHC 28.9 % (32.0-36.0); MCV 88 fL (80-95); MPV 9.6 fL (8.0-11.0); Platelet Count 337 10^3/uL (130-400); RBC 2.58 10^6/uL (3.93-5.22); RDW 18.7 % (11.7-14.6); RDW-SD 52.6 fL; WBC 8.87 10^3/uL (4.4-10.8)
[2024-04-25 06:55] LABS: HGB 6.6 g/dL (11.2-15.7)
[2024-04-25] MEDS: Amphet Asp/Amphet/D-Amphet 10 MG TAB PO (08:25)
[2024-04-25] MEDS: Acetaminophen 325 MG TAB 650 MG PO ×2 (08:25→19:31)
[2024-04-25] MEDS: Labetalol 100 MG TAB PO ×2 (08:25→19:34)
[2024-04-25] MEDS: Doxycycline Hyclate 100 MG CAP PO ×2 (08:39→19:33)
[2024-04-25 09:53] LABS: PTT Activated 76.9 sec (20.6-30.2)
--- NOTE | 2024-04-25 10:04 | W.PC.ACHO ---
Registration Status: Primary Language: Preferred Language: ED Information & Data Chief Complaint Cellulitis 04/24/24 21:05 Triage Note had midline, it came out and 04/24/24 20:26 has been painful. kept being painful. had an iron transfusion. bruising and swollen, warm to the touch, redness in right arm. radial pulse present. finger tips cooler. feels like loosing sensation. Medical / Surgical History Encounter for insertion subdermal contraceptive Contraception MSSA bacteremia Septic pulmonary embolism Hepatitis C antibody positive in blood PTSD (post-traumatic stress disorder) History of endocarditis in adulthood History of pulmonary embolism Tricuspid valve regurgitation hemorrhage, third stage, delivered History of intravenous drug abuse Most Recent Vital Signs Temperature 36.7 C 04/25/24 09:31 Temperature Source Oral 04/24/24 20:31 Pulse 89 04/25/24 09:31 Pulse 91 H 04/25/24 09:31 Respiratory Rate 16 04/25/24 09:31 Blood Pressure 118/68 04/25/24 09:31 Blood Pressure Mean 81 04/25/24 09:30 Blood Pressure Position Sitting 04/24/24 20:31 Pulse Oximetry 94 04/25/24 09:31 Oxygen Delivery Method Room Air 04/25/24 09:31 Oxygen Flow Rate 0 04/25/24 09:31 Pain Level 5 04/24/24 20:31 Comment elevates to greater pain 04/24/24 20:31 Allergies bacitracin (From Neosporin ([id number])) Allergy (Intermediate, Verified 04/25/24 03:19) Skin Rash neomycin (From Neosporin ([id number])) Allergy (Intermediate, Verified 04/25/24 03:19) Skin Rash polymyxin B (From Neosporin ([id number])) Allergy (Intermediate, Verified 04/25/24 03:19) Skin Rash Precautions Isolation Standard precaution 04/24/24 20:30 Active Medications Generic Name Dose Route Start Last Admin Trade Name Jasbirq PRN Reason Stop Dose Admin Acetaminophen 650 mg 04/25/24 07:00 04/25/24 08:25 Acetaminophen 325 Mg Tab PO 650 mg TODAY ABDIRASHID Administration Buprenorphine HCl 8 mg 04/25/24 08:30 04/25/24 08:24 Buprenorphine 8 Mg Sublingual Tablet SL 8 mg DAILY ABDIRASHID Administration Doxycycline Hyclate 100 mg 04/25/24 08:30 04/25/24 08:39 Doxycycline Hyclate 100 Mg Cap PO 100 mg BID ABDIRASHID Administration Heparin Sodium/Sodium Chloride 25,000 unit in 250 mls @ 0 mls/hr 04/25/24 00:30 04/25/24 02:48 IVINF 1,300 units/hr INFUSION ABDIRASHID 13 mls/hr Administration Protocol Per Protocol Labetalol HCl 100 mg 04/25/24 08:30 04/25/24 08:25 Labetalol 100 Mg Tab PO 100 mg BID ABDIRASHID Administration IV IV Catheter Type [Left Forearm Peripheral IV ] IV Catheter Type [Left Peripheral IV Antecubital] IV Catheter Gauge [Left 20 Forearm] IV Catheter Gauge [Left 20 Antecubital] Diet Orders Category Date Time Status Regular/Normal [DIET] Nutrition 04/25/24 Breakfast Active Diagnostics 04/25/24 04/25/24 04/25/24 Range/Units 09:03 07:17 06:40 WBC 8.87 RBC 2.58 L Hgb 6.6 L* Hct 22.8 L MCV 88 MCH 25.6 L MCHC 28.9 L RDW 18.7 H Plt Count 337 MPV 9.6 Immature Gran % Neutrophils % Band Neutrophils % Lymphocytes % Atypical Lymphs % Monocytes % Eosinophils % Basophils % Metamyelocytes % Myelocytes % Promyelocytes % Other Cells % Nucleated RBC % Absolute Neutrophils Absolute Lymphocytes Absolute Monocytes Absolute Eosinophils Absolute Basophils RBC Morphology Polychromasia Hypochromasia Poikilocytosis Basophilic Stippling Anisocytosis Microcytosis Macrocytosis Spherocytes Tear Drop Cells Ovalocytes Stomatocytes Pal[place] Bodies [place] Cells/Echinocytes Acanthocytes (Spur) Schistocytes PT (9.1-11.1) sec INR (0.9-1.1) APTT 76.9 H (20.6-30.2) sec Sodium (136-145) mmol/L Potassium (3.5-5.1) mmol/L Chloride (98-107) mmol/L Carbon Dioxide (21.0-32.0) mmol/L Anion Gap (3-11) mmol/L BUN (7-18) mg/dL Creatinine (0.55-1.02) mg/dL Est GFR (CKD-EPI 2020) (mL/min/1.73m2) Glucose (74-106) mg/dL Calcium (8.5-10.1) mg/dL Magnesium (1.8-2.4) mg/dL Total Bilirubin (0.2-1.0) mg/dL AST (15-37) U/L ALT (14-59) U/L Alkaline Phosphatase (46-116) U/L Total Protein (6.4-8.2) g/dL Albumin (3.4-5.0) g/dL Procalcitonin ng/mL ABO/Rh A Positive Antibody Screen NEGATIVE Crossmatch See Detail 04/24/24 04/24/24 Range/Units 22:00 21:40 WBC 10.93 H Cancelled RBC 2.61 L Cancelled Hgb 6.9 L* Cancelled Hct 23.0 L Cancelled MCV 88 Cancelled MCH 26.4 L Cancelled MCHC 30.0 L Cancelled RDW 18.6 H Cancelled Plt Count 364 Cancelled MPV 9.8 Cancelled Immature Gran % 1.3 Cancelled Neutrophils % 71.3 Cancelled Band Neutrophils % Cancelled Lymphocytes % 19.2 Cancelled Atypical Lymphs % Cancelled Monocytes % 5.9 Cancelled Eosinophils % 1.9 Cancelled Basophils % 0.4 Cancelled Metamyelocytes % Cancelled Myelocytes % Cancelled Promyelocytes % Cancelled Other Cells % Cancelled Nucleated RBC % 0.9 H Cancelled Absolute Neutrophils 7.79 H Cancelled Absolute Lymphocytes 2.10 Cancelled Absolute Monocytes 0.64 Cancelled Absolute Eosinophils 0.21 Cancelled Absolute Basophils 0.04 Cancelled RBC Morphology Cancelled Polychromasia Cancelled Hypochromasia Cancelled Poikilocytosis Cancelled Basophilic Stippling Cancelled Anisocytosis Cancelled Microcytosis Cancelled Macrocytosis Cancelled Spherocytes Cancelled Tear Drop Cells Cancelled Ovalocytes Cancelled Stomatocytes Cancelled Pal[place] Bodies Cancelled Henderson Cells/Echinocytes Cancelled Acanthocytes (Spur) Cancelled Schistocytes Cancelled PT 9.2 (9.1-11.1) sec INR 0.9 (0.9-1.1) APTT 26.1 (20.6-30.2) sec Sodium 140 (136-145) mmol/L Potassium 4.6 (3.5-5.1) mmol/L Chloride 104 (98-107) mmol/L Carbon Dioxide 27.2 (21.0-32.0) mmol/L Anion Gap 8.8 (3-11) mmol/L BUN 17 (7-18) mg/dL Creatinine 0.8 (0.55-1.02) mg/dL Est GFR (CKD-EPI 2020) 101.59 (mL/min/1.73m2) Glucose 116 H (74-106) mg/dL Calcium 8.4 L (8.5-10.1) mg/dL Magnesium 1.8 (1.8-2.4) mg/dL Total Bilirubin 0.23 (0.2-1.0) mg/dL AST 34 (15-37) U/L ALT 45 (14-59) U/L Alkaline Phosphatase 131 H (46-116) U/L Total Protein 6.8 (6.4-8.2) g/dL Albumin 2.4 L (3.4-5.0) g/dL Procalcitonin < 0.10 ng/mL ABO/Rh Antibody Screen Crossmatch Intake and Output - 24 Hour Total 04/24/24 20:24 thru 04/25/24 07:53 Intake Total 10 Balance 10 Weight 72.575 kg Intake: IV 10 Falls Risk Assessment History of Falls No History 04/24/24 20:58 Contributing Factors No Factors 04/24/24 20:58 Ambulatory Aids Independent 04/24/24 20:58 Tubes/Lines None 04/24/24 20:58 Gait Evaluation No gait disturbance 04/24/24 20:58 Cognition No cognitive impairment 04/24/24 20:58 Fall Total Score 0 04/24/24 20:58 Level of Risk Standard/Low Risk 04/24/24 20:58 Problems (Last Reviewed 04/24/24 @ 21:19 by Regina Nolasco NP) Acute deep vein thrombosis (DVT) of right upper extremity (Acute) v v v v v v v v v Sending and/or Receiving Nurses: Please use comment section below to note any information pertinent to the patient hand-off not included above. Information / Comments: Report received from: Ana Cotton RN (Emergency Department)
[2024-04-25] MEDS: Citalopram 20 MG TAB 40 MG PO (10:56)
--- NOTE | 2024-04-25 12:20 | PHA.REVIEW2 ---
Pharmacy Admission Review Admission Clinical Review Admission Pharmacy Review: Acute deep vein thrombosis (DVT) of right upper extremity (Acute) bacitracin (From Neosporin ([id number]-[id number])) Allergy (Intermediate, Verified 04/25/24 03:19) Skin Rash neomycin (From Neosporin ([id number]-[id number])) Allergy (Intermediate, Verified 04/25/24 03:19) Skin Rash polymyxin B (From Neosporin ([id number])) Allergy (Intermediate, Verified 04/25/24 03:19) Skin Rash Resuscitation Status Full Code Height 5 ft Weight 72.575 kg Pharmacy Admission Review Renal Dosing Renal Dosing: BUN 17 mg/dL (7-18) 04/24/24 21:40 Creatinine 0.8 mg/dL (0.55-1.02) 04/24/24 21:40 Medications needing adjustments: Reviewed (CrCl 91.44) List of meds needing interventions: Current medications are okay Anticoagulation Anticoagulation: Hgb 6.6 g/dL (11.2-15.7) L* 04/25/24 06:40 Hct 22.8 % (36.0-46.0) L 04/25/24 06:40 Plt Count 337 10^3/uL (130-400) 04/25/24 06:40 INR 0.9 (0.9-1.1) 04/24/24 22:00 Creatinine 0.8 mg/dL (0.55-1.02) 04/24/24 21:40 Therapeutic Anticoagulation: Reviewed (aPTT 76.9 at 0903, had blood transfusion this morning) Medications: Heparin (infusion at 13mls/hr) Relevant Labs Relevant Labs: Sodium 140 mmol/L (136-145) 04/24/24 21:40 Potassium 4.6 mmol/L (3.5-5.1) 04/24/24 21:40 Chloride 104 mmol/L (98-107) 04/24/24 21:40 Magnesium 1.8 mg/dL (1.8-2.4) 04/24/24 21:40 Electrolytes, C-Reactive P, ESR: Reviewed Cardiac Review BP, HR, EF%: Reviewed (BP 157/96 - has been WNL for all other readings today, HR 93) List meds needing interventions: Has order for labetalol 100mg BID QTc Review QTc: Reviewed (No EKG on file) IV to PO Switch IV Medications: Reviewed (heparin infusion for DVT) Home Meds Home Med List reviewed: Intervened Relevent Home Meds Not ordered & why?: Reached out to nursing to verify with patient what her home dose of Subutex is. Home med list and order is for 8mg tab daily but prescription says 1.5 tabs twice daily. Waiting to hear back. Adderall IR 10mg was put in as daily but patient takes twice daily. I changed the order to BID. Current Meds Current Medication Order Review: Intervened Comments: Changed IV ED access Pharmacy Antibiotic Review Relevant Labs: Relevant Labs 04/24/24 21:40 Procalcitonin < 0.10
[2024-04-25 13:30] LABS: HCT 28.5 % (36.0-46.0); HGB 8.6 g/dL (11.2-15.7)
[2024-04-25] MEDS: LORazepam 1 MG TAB 2 MG PO ×2 (14:05→17:48)
[2024-04-25 15:22] LABS: PTT Activated 62.5 sec (20.6-30.2)
--- NOTE | 2024-04-25 15:56 | INITIAL_ITS ---
Date of service: 04/25/24 Time of Service: 12:00 Care Management Initial Assmt Initial Assessment Reason for Hospitalization: DVT of right upper extremity Functional Status/Living Situation Patient Presentation: Janel presented to the ED last night due to right arm swelling, redness, warmth and pain that increased over the course of 2 days. Janel had a vaginal delivery on 04/17/24, and had a PICC line in that arm. She received iron infusions x 2 through that PICC and stated that she had pain after the second infusion. Janel was found to have a DVT in that arm, and was admitted for heparin therapy and continued monitoring. When met with Janel today, her baby, Radha, and her boyfriend, Brenton, were in the room. Janel was asking to go home. She wants to care for her baby. The risks of DVT going to her lungs and the trouble that could cause were discussed. Janel is agreeble to stay. She was receiving an iron infusion and on a heparin gtt at that time Janel and Jani were very pleasant. Jani is working on getting [place] insurance for his family. A referral was sent to [employer] for help with that. Janel does have [place] healthy [place], but is now living in [place]. Janel does not have a primary care physician, (T-doc Naseem Osei at [facility]) and she had limited care, but she would like to start taking better care of herself because she now has a baby. Janel is in a subutex program Town of Residence: [facility] Resides with: Spouse (Jani and Radha) Significant Other/Family: Out of area (Mother lives in about 2.5 hours away) Natural Supports: Jani, Mom Employment Status: Unemployed (would like to find employment once her daughter is older) Instrumental Activities of Daily Living (ADLs): Independent Medications Medication Management: No Issues/Barriers identified Advance Directives Advance Directives: Do you have an Advance Directive: N 04/24/24 20:29 AD On File at [facility]: N 04/17/24 11:29 Date Asked 04/24/24 04/24/24 20:29 AD Date Reviewed 04/25/24 04/25/24 08:53 COLST On File at [facility] No 04/24/24 20:29 COLST Date Scanned Code Status Resuscitation Status Full Code Portal Pt does not currently have a portal and education provided: Yes Insurance Coverage/Financial Issues Insurance: [place] [employer] Financial Issues: things are tight - referral to [facility] Care Team Visit Care Team Role Provider Type None None Primary Care Provider NON-[facility] STAFF PHYSICIAN Regina Nolasco, VIDEO PRODUCER Emergency Provider NURSE PRACTITIONER Paul Traylor MD Admit Provider [facility] STAFF PHYSICIAN Attending Provider Discharge Potential Discharge Needs: PCP F/U Appt (PCP f/u with T-doc Naseem Osei) Anticipated Barriers to Discharge: None Identified Patient/Family Education Needs: Review discharge instructions, discuss Ask Me Three Transportation: Private vehicle Plan: Janel will likely be discharged in the next day or 2 with no new services. She will f/u with her new PCP and continue per her plan of care. She [facility]. CM will continue to follow Social Determinants of Health Screening Social Determinants of Health last assessed: 04/25/24 Will the Patient Participate in the Screening?: Yes Do you worry about having a steady place to live?: no Problems where you live: no known problems In the past 12 months, have you had to go without electric, gas, oil or water in your home?: no Have you or anyone in your house had to go without enough food to eat?: no Has lack of transportation kept you from medical appointments or from doing things needed for daily living?: no Has anyone in your life made you feel unsafe or unsupported?: no How hard is it for you to pay for the very basics like food, housing, medical care, and heating? Would you say it is:: Not hard at all Do you want help finding or keeping work or a job?: I do not need or want help If for any reason you need help with day-to-day activities such as bathing, preparing meals, shopping, managing finances, etc., do you get the help you need?: I don?t need any help How often do you feel lonely or isolated from those around you?: Never Do you speak a language other than Venezuelan at home?: Yes Does the patient want assistance with any of the above?: No Health Related Social Needs Health related social needs: education (Z55.6) PFSH All Active Problems (Updated 04/24/24 @ 23:14 by Regina Nolasco NP) Acute deep vein thrombosis (DVT) of right upper extremity (Acute) Anemia associated with acute blood loss (Acute) , delivered (Acute) Gestational hypertension without significant proteinuria (Acute) Anxiety (Chronic) Morgellons syndrome (Acute) Substance use disorder (Acute) Medical History Encounter for insertion subdermal contraceptive Contraception MSSA bacteremia 04/17/18 Septic pulmonary embolism 06/04/2018. treated at [facility] Hepatitis C antibody positive in blood PTSD (post-traumatic stress disorder) History of endocarditis in adulthood 05/25/2018 History of pulmonary embolism 06/04/2018 [facility] Tricuspid valve regurgitation hemorrhage, third stage, delivered History of intravenous drug abuse Social History Smoking/Tobacco Use Status: Current every day Tobacco Type: e-cigarettes Smoking risk assessment performed?: Yes Alcohol Intake: former Substance use type: former substance user Details: Addarall 20 mg once a day citalopram 20mg once a day lorazepam tid 2mg buprenorphine 8mg BID Housing: house Do you feel safe at home: Yes Do you feel safe in your relationship?: Yes History History 3 Para 1 Hx # Term Pregnancies 1 Multiple births 0 Hx # Pregnancies 0 Ectopic pregnancies 0 AB induced 1 Hx Number of Living Children 1 AB spontaneous 0 Past Pregnancies Del. Date GA/Weeks # Preg Succ Route Wgt Sex Labor Lgth Anesth esia Location [facility] 03/24/20 Dr. Dian Bates MD 04/17/24 04/17/24 35 No Yes vaginal Female JK Delivery Date: 03/24/20 Last Updated by: Enid German CNM IABrittney Delivery Date: 04/17/24 Last Updated by: Tiffani Swain MD Precipitous vaginal delivery. limited care. Readmission Within the Past 30 Days Yes or No: Yes Date of First Admission Date of 1st Admission: 04/16/24 Date of this Admission Date of Admission: 04/25/24 This admission was: Through ED Office Visit Since 1st Admission Have you seen your PCP in the office since discharge?: No Speicalist Appointments Have you seen any other specialist since your 1st Admission?: No If the patient had a VNA ordered Did the patient have a VNA order?: No Assessment for Readmission Summary of readmission circumstances, based upon interviews: Admissions are not related.
--- NOTE | 2024-04-25 17:44 | W.EVENT ---
Date of service: 04/25/24 Time of Service: 17:44 Event Note: Earlier in the morning at 04/25/2024 I was at the bedside with the patient's emergency room nurse to discuss current medical condition and admission status. It was explained to the patient that there is high concern for her having had a DVT in her upper extremity, but that we would not be able to confirm until getting a right upper extremity ultrasound on 04/26/2024. Additionally, she remained anemic but decreased her hemoglobin below the threshold of 7 necessitating a blood transfusion to which she agreed. The patient stated that she had been told by the overnight team that she could potentially go to labor and delivery for her care so that she could be present when her daughter comes in later in the day for a weight check. I apologized to the patient if there was any misunderstanding from the overnight team regarding where she would be admitted, but that she would be going to the MedSurg unit as she is a medicine patient, and that would be the best place for her to receive optimal care for her medical condition. I did however state to the patient that I would try my best to coordinate with nursing dry cleaning supervisor and nursing staff for her to be brought up to the birthing center to visit with her daughter when she comes later this morning. The patient expressed gratitude and understanding of the current situation, and agreed to go to the MedSurg unit for ongoing medical care. Time Spent with Patient Time spent in critical care(minutes): 30 Time Spent Included: Time at immediate bedside
--- NOTE | 2024-04-25 18:11 | NUR.NOTE ---
Nursing Note I went with Dr. Iraheta to speak with patient about her care. I reviewed his notes in patient's chart.I agree with documentation on their conversation
[2024-04-25] MEDS: Normal Saline Flush 10 ML SYR IVP (19:32)
--- NOTE | 2024-04-26 | DI.US_ITS ---
Exam(s) US UPPER EXTREMITY VENOUS RT EXAM: US UPPER EXTREMITY VENOUS RT CLINICAL HISTORY: natanael DVT TECHNIQUE: GRAYSCALE, COLOR, DOPPLER IMAGING OF THE VENOUS SYSTEM OF THE UPPER EXTREMITY-BILATERAL COMPARISON: US POCUS EXAM from 04/24/2024 FINDINGS: Basilic vein: There is occlusive thrombus in right basilar vein, this intraluminal thrombus measuring approximately 9 cm length Brachial vein(s):There is also occlusive thrombus in 1 of the 2 brachial veins throughout the length of the upper arm measuring approximately 12 cm in length and extending into the 1st 1 cm of the ipsil ateral axillary vein. Axillary vein: As above. The more proximal aspect of the axillary vein is patent and compressible. Cephalic vein:Patent. Normal color flow. Normal compression and augmentation properties. Visualized subclavian vein: Patent. No obvious intraluminal thrombus. IMPRESSION: 1. There is significant occlusive intraluminal thrombus 9 cm length within the right basilar vein 2. There is also significant occlusive intraluminal thrombus in 1 of the 2 brachial veins of the rig ht upper extremity, measuring approximately 12 cm length and extending into the ipsilateral axillary vein for approximately 1 cm. DATA REPOSITORY:
[2024-04-26 06:33] LABS: PTT Activated 59.9 sec (20.6-30.2)
[2024-04-26 07:32] VITALS: BP 120/74; PULSE 78; RESP 18; TEMP 36.4; O2SAT 99
[2024-04-26] MEDS: Doxycycline Hyclate 100 MG CAP PO (08:36)
[2024-04-26] MEDS: Normal Saline Flush 10 ML SYR IVP (08:37)
[2024-04-26] MEDS: Citalopram 20 MG TAB 40 MG PO (08:37)
[2024-04-26] MEDS: Labetalol 100 MG TAB PO (08:37)
[2024-04-26] MEDS: Amphet Asp/Amphet/D-Amphet 10 MG TAB PO (08:37)
[2024-04-26 09:09] LABS: HCT 28.2 % (36.0-46.0); HGB 8.4 g/dL (11.2-15.7)
--- NOTE | 2024-04-26 09:11 | PDOC.CMPRO ---
Date of service: 04/26/24 Time of Service: 09:11 Care Management Progress Note Discharge Potential Discharge Needs: PCP F/U Appt (needs to establish with a PCP T-doc was Naseem Osei at [facility] ) Anticipated Barriers to Discharge: None Identified Patient/Family Education Needs: Review discharge instructions, discuss Ask Me Three Transportation: Private vehicle Plan: Janel will likely be discharged in the next day or 2 with no new services. She will f/u with her new PCP and continue per her plan of care. She has [facility]. CM will continue to follow Social Determinants of Health Screening Social Determinants of Health last assessed: 04/26/24 Will the Patient Participate in the Screening?: Yes Do you worry about having a steady place to live?: no Problems where you live: no known problems In the past 12 months, have you had to go without electric, gas, oil or water in your home?: no Have you or anyone in your house had to go without enough food to eat?: no Has lack of transportation kept you from medical appointments or from doing things needed for daily living?: no Has anyone in your life made you feel unsafe or unsupported?: no How hard is it for you to pay for the very basics like food, housing, medical care, and heating? Would you say it is:: Not hard at all Do you want help finding or keeping work or a job?: I do not need or want help If for any reason you need help with day-to-day activities such as bathing, preparing meals, shopping, managing finances, etc., do you get the help you need?: I don?t need any help How often do you feel lonely or isolated from those around you?: Never Do you speak a language other than Ukrainian at home?: Yes Does the patient want assistance with any of the above?: No Health Related Social Needs Health related social needs: education (Z55.6)
[2024-04-26 10:57] VITALS: BP 131/76; PULSE 102; RESP 20; TEMP 37.1; O2SAT 97
[2024-04-26] MEDS: Apixaban 5 MG TAB 10 MG PO (11:58)
--- NOTE | 2024-04-26 12:02 | DSE_ITS ---
Date of service: 04/26/24 Time of Service: 12:02 DS: Diagnosis Discharge Diagnosis (1) Acute deep vein thrombosis (DVT) of right upper extremity: Status: Acute Discharge Plan Disposition Patient Disposition: Home Condition: Good Discharge Details Reason For Visit: RUE DVT Admit Date/Time: 04/25/24 00:29 Admit Provider: Paul Traylor Attending Provider: aPul Traylor Primary Care Provider: None,None Hospital Course Hospital Course: Patient initially presented with right upper extremity swelling that was concerning for DVT which was confirmed on ultrasound done on the morning of 04/26/2024. Patient was initially admitted on heparin drip, and upon confirmation of presence of DVT she has been transitioned to Eliquis for which she will take 10 mg twice daily for 2 weeks and then transition to 5 mg twice daily for total of 90 days. While this is the patient's second DVT, both have been determined to be provoked as the first was reportedly secondary to endocarditis and IV drug use and this 1 being . However, it is up to PCP to discuss with patient or determine if she would benefit from hypercoa gulable workup. Additionally, she did have anemia with her hemoglobin being in the low sevens. However, during hospitalization her hemoglobin initially dropped to 6.8 for which she received 1 unit of PRBCs and posttransfusion hemoglobins remained stable despite being on anticoagulation. Home Meds and New Rx's Prescriptions: New Eliquis 5 mg Tablet 10 mg PO BID Qty: 206 0RF Rx Instructions: Take 2 tabs twice a day, then starting on 2/3 take 1 tab twice a day Continued labetalol 100 mg tablet 100 mg PO BID Qty: 60 1RF lorazepam 2 mg tablet 2 mg PO TID PRN citalopram 40 mg tablet 20 mg PO DAILY buprenorphine HCl 8 mg tablet, sublingual 8 mg sublingual DAILY dextroamphetamine-amphetamine 30 mg capsule,extended release 24hr 30 mg PO DAILY Patient Comments: take 1 capsule by mouth twice a day dextroamphetamine-amphetamine [Adderall] 10 mg tablet 10 mg PO DAILY Patient Comments: take 1 tablet by mouth twice a day doxycycline hyclate 100 mg capsule 100 mg PO BID Patient Comments: take 1 capsule by mouth twice a day Discharge Instructions Instructions: Deep vein thrombosis - Discharge instructions Stand Alone Forms: Nursing Discharge Form Referrals: Tiffani Swain MD [ [facility] STAFF PHYSICIAN] - 04/28/24 2:20 pm Naseem Osei NP [NURSE PRACTITIONER] - (I call PCP office and left a voicemail to have them call you to make a follow up appointment for within 1 to 2 weeks.) Activity:: Activity as Tolerated Equipment/Supplies:: No Equipment Needed Diet:: As Tolerated Discharge Orders Discharge Orders: Discharge Order (Routine); Ordered 04/26/24 Ordered By: Fabian Iraheta DS: Summary Time Spent with Patient providing and/or coordinating discharge services: Greater than 30 minutes Status at Discharge Functional status at discharge: independent ambulation Overall status at discharge: patient is back to baseline Mental Status: mental status grossly normal Speech and Movement: speech and movement normal Mood: congruent mood Affect: normal affect Quality:SDOH Health Related Social Needs: Health related social needs education (Z55.6) Exam Narrative Exam Narrative: Well-appearing female sitting up in the bed in no acute distress, ANO x 4, heart regular rhythm, lungs clear to auscultation bilaterally, significant swelling in the right upper extremity Psych Mental Status: mental status grossly normal Speech and Movement: speech and movement normal Mood: congruent mood Affect: normal affect DS: Data Vitals/I&O Vitals and I&O: Vital Signs Temperature 98.8 F 04/26/24 10:57 Temperature Source Temporal Artery Scan 04/26/24 10:57 Pulse 102 H 04/26/24 10:57 Pulse Rhythm Regular 04/25/24 10:15 Pulse 91 H 04/25/24 09:31 Respiratory Rate 20 04/26/24 10:57 Respiratory Effort Normal 04/25/24 10:15 Respiratory Depth Normal 04/25/24 10:15 Respiratory Pattern Normal 04/25/24 10:15 Blood Pressure 131/76 04/26/24 10:57 Blood Pressure Mean 81 04/25/24 09:30 Blood Pressure Position Sitting 04/24/24 20:31 Pulse Oximetry 97 04/26/24 10:57 Oxygen Delivery Method Room Air 04/26/24 10:57 Oxygen Flow Rate 0 04/26/24 10:57 Pain Level 3 04/26/24 10:57 Comment Notifying RN of Pulse 04/26/24 10:57 Intake & Output 04/25/24 04/26/24 04/26/24 17:59 05:59 17:59 Intake Total 454.134 / 454.134 86.234 / 540.368 111.583 / 111.583 Output Total 500 / 500 1000 / 1500 600 / 600 Balance -45.866 / -45.866 -913.766 / -959.632 -488.417 / -488.417 Weight 160 lb 0.008 oz Intake: IV 204.134 / 204.134 86.234 / 290.368 111.583 / 111.583 Blood Product 250 / 250 Rbc Leuko Reduced Unit 250 / 250 [id number] Output: Urine 500 / 500 1000 / 1500 600 / 600 Other: Urine Color Pale Yellow Yellow Urine Appearance Clear Clear Cloudy Urine Odor None Normal Data Completed and Pending Labs on day of discharge: Labs from last 24 hours 04/26/24 04/25/24 04/25/24 06:00 21:00 14:55 Hgb 8.4 L Hct 28.2 L APTT 59.9 H 57.0 H 62.5 H Crossmatch 04/25/24 04/25/24 13:25 07:17 Hgb 8.6 L D Hct 28.5 L APTT Crossmatch See Detail PFSH All Active Problems (Updated 04/24/24 @ 23:14 by Regina Nolasco NP) Acute deep vein thrombosis (DVT) of right upper extremity (Acute) Anemia associated with acute blood loss (Acute) , delivered (Acute) Gestational hypertension without significant proteinuria (Acute) Anxiety (Chronic) Morgellons syndrome (Acute) Substance use disorder (Acute) Medical History Encounter for insertion subdermal contraceptive Contraception MSSA bacteremia 04/17/18 Septic pulmonary embolism 06/04/2018. treated at [facility] Hepatitis C antibody positive in blood PTSD (post-traumatic stress disorder) History of endocarditis in adulthood 05/25/2018 History of pulmonary embolism 06/04/2018 [facility] Tricuspid valve regurgitation hemorrhage, third stage, delivered History of intravenous drug abuse Social History Smoking/Tobacco Use Status: Current every day Tobacco Type: e-cigarettes Smoking risk assessment performed?: Yes Alcohol Intake: former Substance use type: former substance user Details: Addarall 20 mg once a day citalopram 20mg once a day lorazepam tid 2mg buprenorphine 8mg BID Housing: house Do you feel safe at home: Yes Do you feel safe in your relationship?: Yes History History 3 Para 1 Hx # Term Pregnancies 1 Multiple births 0 Hx # Pregnancies 0 Ectopic pregnancies 0 AB induced 1 Hx Number of Living Children 1 AB spontaneous 0 Past Pregnancies Del. Date GA/Weeks # Preg Succ Route Wgt Sex Labor Lgth Anesth esia Location Prov Complic 03/24/20 Dr. Dian Bates MD 04/17/24 04/17/24 35 No Yes vaginal Female JK Delivery Date: 03/24/20 Last Updated by: Enid German CNM IABrittney Delivery Date: 04/17/24 Last Updated by: Tiffani Swain MD Precipitous vaginal delivery. limited care. Time Spent with Patient Time Spent with Patient: <45 minutes Time was spent: preparing to see the patient(eg.review tests), obtaining and/or reviewing separately otained hiistory, ordering medications,tests, procedures, referring, communicating with other health care management coordinator, indepentently interpreting results, counseling the patient and care coordination
[2024-04-26] MEDS: LORazepam 1 MG TAB 2 MG PO (12:23)
--- NOTE | 2024-04-26 15:49 | PDOC.CMDIS ---
Date of service: 04/26/24 Time of Service: 11:00 LACE Index Scoring Tool Questions: Length of Stay (in days): 1 Was the patient admitted via the E.D.?: Yes Comorbidities: Mild Liver/Renal Disease (Hep C positive) E.D. Visits: 2 Answers: Total Score: 8 Risk of Readmission: Low Risk Care Management Discharge Plan Reason for Hospitalization: DVT of RUE Discharge Plan: Janel was discharged home today with no new services. She will f/u at [facility] on 04/28, and a message was left at [facility] to get her an appointment to establish at their clinic. Chanel will be on Eliquis bid x 2 weeks, then 1 tab a day. The cost of this medication was verified at Janel's pharmacy to be $0. Janel transported home with her . Patient/Family Education Needs: Review of discharge instructions, limitations, activity and discuss ask me 3 SDOH Health Related Social Needs: Health related social needs education (Z55.6)
== END 2024-04-26 13:11 | disposition home or self-care (01) | DRG 776 ==
LOC: ER 23:14 → EDHOLD 04-25 01:10 → MS 04-25 10:13
PROVIDERS: Family Medicine; General Practice; Admitting Provider Student in an Organized Health Care Education/Training Program; Emergency Provider Registered Nurse Emergency; Visit Provider Student in an Organized Health Care Education/Training Program
DX: O87.1 Deep phlebothrombosis in the puerperium (principal); I82.621 Acute embolism and thrombosis of deep veins of right upper extremity; O98.43 Viral hepatitis complicating the puerperium; O90.81 Anemia of the puerperium; D50.0 Iron deficiency anemia secondary to blood loss (chronic); O99.345 Other mental disorders complicating the puerperium; B19.20 Unspecified viral hepatitis C without hepatic coma; O99.335 Smoking (tobacco) complicating the puerperium; F17.210 Nicotine dependence, cigarettes, uncomplicated; F43.10 Post-traumatic stress disorder, unspecified; Z55.6 Problems related to health literacy; Z86.718 Personal history of other venous thrombosis and embolism
CPT/HCPCS: 36556; 00123; 36415; 36430; 36569; 71275; 80053; 84145; 85027; 86850; 86900; 86901; 86920; 93971; 96365; 96366; 99285; 83735; 85014; 85018; 85025; 85610; 85730; 99222; 99239; 99291; J1644; J3490; P9016

== ENCOUNTER 2024-07-05 20:48 | Emergency (ER) | payer MEDICAID, SELFPAY ==
[2024-07-05 20:49] VITALS: BP 132/36; PULSE 128; RESP 18; O2SAT 99
--- NOTE | 2024-07-05 21:22 | W.ED.GENAD ---
Discharge Plan Disposition Patient Disposition: Home Condition: Stable Discharge Details Clinical Impression: Morgellons syndrome Primary Care Provider: Unknown,Unknown ED Provider: Juan Miguel Aguilera Home Meds and New Rx's Prescriptions: Continued labetalol 100 mg tablet 100 mg PO BID Qty: 60 1RF lorazepam 2 mg tablet 2 mg PO TID PRN citalopram 40 mg tablet 20 mg PO DAILY buprenorphine HCl 8 mg tablet, sublingual 8 mg sublingual DAILY dextroamphetamine-amphetamine 30 mg capsule,extended release 24hr 30 mg PO DAILY Patient Comments: take 1 capsule by mouth twice a day dextroamphetamine-amphetamine [Adderall] 10 mg tablet 10 mg PO DAILY Patient Comments: take 1 tablet by mouth twice a day doxycycline hyclate 100 mg capsule 100 mg PO BID Patient Comments: take 1 capsule by mouth twice a day Eliquis 5 mg Tablet 10 mg PO BID Qty: 206 0RF Rx Instructions: Take 2 tabs twice a day, then starting on 2/3 take 1 tab twice a day Discharge Instructions Additional Instructions: You were seen in the emergency department for request for daily doxycycline for Mergellon's syndrome. I offered to establish you with primary care, the ER is not the place to resume chronic treatment for longstanding disease especially with daily antibiotics. I suspect that some of the skin lesions are itched frequently and do not heal, please trial using medicated Selsun Blue shampoo as body wash, lather yourself and let the menthol feeling sit on skin for 5 minutes before rinsing off, also purchase [id number] Hibiclens or chlorhexidine soap to use every third day in the shower, this will often decolonize you from benign bacteria that live on all of our skin, you are likely colonized with some bacteria that every time you get a microscopic cut in your skin it forms a small infection. I offered you topical antibiotics as well as topical steroid creams and recommend you take [id number] antihistamines like Zyrtec twice daily, you refused these treatment recommendations, I have filed a referral for you to establish primary care in the area. HPI General Date/Time Provider Initiated Documentation: 07/05/24 20:48. 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 States her prior PCP was treating her with this. Patient states she used to get abscesses recurrently in her axilla as well. Quality described as severe- states that her partner is telling their children that it's making them sick, no radiation to fever, purulent drainage, filamentous discharge, swelling, erythema, lymphadenitis. Severity is described as severe. Palliating factors include nothing specific. Provoking factors include nothing specific. Patient not anticoagulated. Related Data Home Medications ?Medication ?Instructions ?Recorded ?Confirmed buprenorphine HCl 8 mg sublingual 8 mg sublingual DAILY 02/29/24 04/24/24 tablet citalopram 40 mg tablet 20 mg PO DAILY 02/29/24 04/29/24 lorazepam 2 mg tablet 2 mg PO TID PRN 04/17/24 04/29/24 dextroamphetamine-amphetamine 10 10 mg PO DAILY 04/24/24 04/29/24 mg tablet (Adderall) dextroamphetamine-amphetamine ER 30 mg PO DAILY 04/24/24 04/29/24 30 mg 24hr capsule,extend release doxycycline hyclate 100 mg capsule 100 mg PO BID 04/24/24 04/29/24 apixaban 5 mg tablet (Eliquis) 10 mg (2 x 5 mg) PO BID #206 tabs 04/26/24 04/29/24 labetalol 100 mg tablet 100 mg PO BID #60 tabs 06/17/24 Previous Rx's ?Medication ?Instructions ?Recorded apixaban 5 mg tablet (Eliquis) 10 mg (2 x 5 mg) PO BID #206 tabs 04/26/24 labetalol 100 mg tablet 100 mg PO BID #60 tabs 06/17/24 Allergies Allergy/AdvReac Type Severity Reaction Status Date / Time bacitracin (From Neosporin Allergy Intermediate Skin Rash Verified 04/29/24 13:43 ([id number])) neomycin (From Neosporin Allergy Intermediate Skin Rash Verified 04/29/24 13:43 ([id number])) polymyxin B (From Neosporin Allergy Intermediate Skin Rash Verified 04/29/24 13:43 ([id number])) General Stated Complaint: RashLesion PRINCESS: 5 Review of Systems All systems reviewed & are unremarkable except as noted in HPI and below Exam Narrative Exam Narrative: GENERAL APPEARANCE: Well-nourished, non-toxic, awake and alert, atraumatic, no acute distress. SKIN: Warm, pink, dry, varying small skin lesions diffusely to face, arms, consistent with past IVDU colonization, consistent with excoriation of varying stages of healing without erythema or swelling or evidence of abscess, no evidence of severe cellulitis diffusely HEAD: Normocephalic, atraumatic, normal hair distribution for gender/age. EYES: Normal conjunctiva, no exudates on lids/lashes. ENT: Nares patent, no circumoral cyanosis, no facial swelling NECK: Supple, trachea midline, painless cervical ROM. LUNGS/CHEST: Non-labored respirations, normal A/P diameter, symmetrical expansion, no chest wall deformity HEART (CV/PV): No peripheral edema, no JVD. ABDOMEN: Soft, non-distended, no guarding. MSK: Normal ROM, no swelling/deformity to bilateral UEs or LEs, moving all extremities without weakness, no cyanosis, spine midline without tenderness, normal curvature. NEURO: Mental Status AAOx4 - alert to person, place, time, events No facial droop, no forehead involvement. Motor: No focal weakness - strength 5/5 in bilateral UEs and LEs, proximal and distal, symmetric. Sensory: sensation intact to light touch globally. Gait normal: patient ambulated without ataxia into ED room. PSYCH: euthymic, cooperative, pleasant, appropriate speech Course Vital Signs Vital signs: Vital Signs Pulse 128 H 07/05/24 20:49 Respiratory Rate 18 07/05/24 20:49 Blood Pressure 132/36 L 07/05/24 20:49 Pulse Oximetry 99 07/05/24 20:49 Temperature Source Tympanic 07/05/24 20:49 Pulse 128 H 07/05/24 20:49 Respiratory Rate 18 07/05/24 20:49 Blood Pressure 132/36 L 07/05/24 20:49 Blood Pressure Position Supine 07/05/24 20:49 Pulse Oximetry 99 07/05/24 20:49 Oxygen Delivery Method Room Air 07/05/24 20:49 Oxygen Flow Rate 0 07/05/24 20:49 Medical Decision Making This dictation utilizes [id number] dictation software and may contain unedited grammatical errors. 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 States her prior PCP was treating her with this. Patient states she used to get abscesses recurrently in her axilla as well. Quality described as severe- states that her partner is telling their children that it's making them sick, no radiation to fever, purulent drainage, filamentous discharge, swelling, erythema, lymphadenitis. Severity is described as severe. Palliating factors include nothing specific. Provoking factors include nothing specific. Patients' medical history: History of polysubstance abuse, IV drug use, PTSD, hepatitis C. Family and social history: Denies active drug use or EtOH. Pertinent exam findings / vital signs include varying skin lesions of varying age and stages of healing without evidence of erythema, swelling, purulent drainage, lymphadenitis, filamentous discharge, consistent with likely bacterial colonization causing minor skin infections like staph with any microscopic break in the skin. Differential / pathologies of concern include delusional parasitosis, bacterial colonization with staph. Diagnostic studies of: -None. Interventions of: -Offered topical ABX/topical steroids, patient declined. ED Course/Assessment/Plan: 28-year-old female has subacute skin lesions, history of Morgellon's Syndrome - requesting daily 100mg BID doxycycline, has no PCP. Advised that none of her skin lesions look infected, patient states she would constantly get abscesses everywhere she shaves like axilla. More likely patient is colonized with bacteria and needs Hibiclens and Selsun Blue as body wash rolled into her normal shower routine. Do not see any evidence of any filament-like protrusions from her skin, does have history of polysubstance abuse, states that the hairs that come out of her minor skin lesions is making her children sick. Advised that doxycycline is not warranted long-term for this, and that she was offered topical antibiotics and steroid creams but patient walked out dissatisfied from visit at that point. Referred to establish PCP. Findings not consistent with cellulitis, abscess. Disposition of Morgellon Syndrome. Patient verbalized understanding of the plan and return to ED criteria and engaged in shared decision making. Medical Records Medical records reviewed: Yes I reviewed the patient's medical records. Quality:SDOH Health Related Social Needs: Health related social needs education (Z55.6) PFSH All Active Problems (Updated 07/05/24 @ 21:23 by ARMANI Miramontes) History of cocaine use (Acute) Recent +UDS for cocaine (April 2024) Pt denied current use, states she was exposed to cocaine while visiting friend who uses it. Opioid use disorder in remission (Acute) In MAT Tx Per Pt [facility] in [place] Plans to transfer to [facility] Acute deep vein thrombosis (DVT) of right upper extremity (Acute) Anemia associated with acute blood loss (Acute) Gestational hypertension without significant proteinuria (Acute) Anxiety (Chronic) Morgellons syndrome (Acute) Substance use disorder (Acute) Medical History , delivered Contraception Nexplanon placed in Left arm prior to discharge. MSSA bacteremia 04/17/18 Septic pulmonary embolism 06/04/2018. treated at [facility] Hepatitis C antibody positive in blood PTSD (post-traumatic stress disorder) History of endocarditis in adulthood 05/25/2018 History of pulmonary embolism 06/04/2018 [facility] Tricuspid valve regurgitation hemorrhage, third stage, delivered History of intravenous drug abuse Social History Smoking/Tobacco Use Status: Current every day Tobacco Type: e-cigarettes Quit status: quit date established Smoking risk assessment performed?: Yes Alcohol Intake: former Drug use: Current Sobriety Substance use type: former substance user Details: Addarall 20 mg once a day citalopram 20mg once a day lorazepam tid 2mg buprenorphine 8mg BID Housing: house Do you feel safe at home: Yes Do you feel safe in your relationship?: Yes History History 3 Para 1 Hx # Term Pregnancies 1 Multiple births 0 Hx # Pregnancies 0 Ectopic pregnancies 0 AB induced 1 Hx Number of Living Children 1 AB spontaneous 0 Past Pregnancies Del. Date GA/Weeks # Preg Succ Route Wgt Sex Labor Lgth Anesthesia Location [facility] 03/24/20 [facility], Dr. Dian Riley MD 04/17/24 04/17/24 35 No Yes vaginal Female JK Delivery Date: 03/24/20 Last Updated by: Enid German CNM IAB Delivery Date: 04/17/24 Last Updated by: Tiffani Swain MD Precipitous vaginal delivery. limited care.
== END 2024-07-05 22:54 | disposition home or self-care (01) ==
PROVIDERS: Emergency Provider Physician Assistant
DX: H92.02 Otalgia, left ear (principal); L98.9 Disorder of the skin and subcutaneous tissue, unspecified; F17.290 Nicotine dependence, other tobacco product, uncomplicated; Z86.711 Personal history of pulmonary embolism
CPT/HCPCS: 99283

== ENCOUNTER 2024-07-05 22:04 | Emergency (ER) | payer MEDICAID, SELFPAY ==
--- NOTE | 2024-07-05 22:26 | W.ED.GENAD ---
Discharge Plan Disposition Patient Disposition: Home Condition: Stable Discharge Details Clinical Impression: Ear pain, left, Rash Primary Care Provider: Unknown,Unknown ED Provider: Daniel Najera Home Meds and New Rx's Prescriptions: New doxycycline hyclate 100 mg tablet 100 mg PO BID Qty: 14 0RF Continued citalopram 40 mg tablet 20 mg PO DAILY buprenorphine HCl 8 mg tablet, sublingual 8 mg sublingual DAILY Discharge Instructions Additional Instructions: Try to follow-up with her primary care provider especially if not improving. Patient put 4 drops in the affected ear twice a day for 7 days or until the bottle is gone. If you feel more ill or have new symptoms such as high fevers return to the emergency department for reevaluation HPI General Mode of arrival: ambulatory. Date/Time Provider Initiated Documentation: 07/05/24 22:16. Limitations to Documentation: no limitations. Information obtained by: patient. History of Present Illness 28 year old F presents to the emergency department with the chief complaint of rash, described as mild, and it has been constant. No relieving factors improve symptom(s), No exacerbating factors reported . Patient notes no other symptoms.. Patient did receive the following treatments prior to arrival, none Related Data Home Medications ?Medication ?Instructions ?Recorded ?Confirmed buprenorphine HCl 8 mg sublingual 8 mg sublingual DAILY 02/29/24 07/05/24 tablet citalopram 40 mg tablet 20 mg PO DAILY 02/29/24 07/05/24 doxycycline hyclate 100 mg tablet 100 mg PO BID #14 tabs 07/05/24 Previous Rx's ?Medication ?Instructions ?Recorded doxycycline hyclate 100 mg tablet 100 mg PO BID #14 tabs 07/05/24 Allergies Allergy/AdvReac Type Severity Reaction Status Date / Time bacitracin (From Neosporin Allergy Intermediate Skin Rash Verified 04/29/24 13:43 ([id number])) neomycin (From Neosporin Allergy Intermediate Skin Rash Verified 04/29/24 13:43 ([id number])) polymyxin B (From Neosporin Allergy Intermediate Skin Rash Verified 04/29/24 13:43 ([id number])) General PRINCESS: 5 Review of Systems All systems reviewed & are unremarkable except as noted in HPI and below Constitutional Constitutional: Denies chills, Denies fever(s) and Denies weakness Cardiovascular Cardiovascular: Denies chest pain and Denies dyspnea Respiratory Respiratory: Denies cough and Denies dyspnea Gastrointestinal Gastrointestinal: Denies abdominal pain, Denies nausea and Denies vomiting Integumentary/Breasts Skin/Breast: Reports rash Neurologic Neurologic: Denies weakness Psychiatric Psychiatric: Denies depression Exam Const General: no acute distress Orientation: alert HENMT Head: normal to inspection Ears: external ears normal General nose exam: external nose normal Mouth: moist mucous membranes Eyes General: appearance normal, both eyes and all related structures Neck Neck: normal visual inspection Resp Effort & Inspection: normal respiratory effort and able to speak in complete sentences Cardio Rate: regular rate Skin Lesions: lesion noted Neuro General: patient alert and patient oriented x3 Extrem General: normal to inspection Psych Mental Status: mental status grossly normal Medical Decision Making 1-year-old female who states that she has skin disease that she normally is on doxycycline for but has not been for 3 months comes in with concerns for a lesion on her nose and also left ear discomfort. She denies any fevers, denies any IV drug use. She is well-appearing on exam. She has mild erythema without any discharge of the tip of her nose, there is excoriated wound on this area. There is no drainage. The inside of her nose appears normal. She also has some mild swelling of her left ear canal, there is no drainage and the tympanic membrane appears normal. She was just seen and was told to use topical antibiotic wheels which I feel would be adequate but after long discussion she would prefer doxycycline which I advised may not help but given her persistence I will prescribe this. Will also start her on antibiotic eardrops for her ear. She will follow-up with a PCP as soon as possible and return precautions given Quality:SDOH Health Related Social Needs: Health related social needs education (Z55.6) [facility] All Active Problems (Updated 07/05/24 @ 22:37 by Daniel Najera MD) Rash (Acute) Ear pain, left (Acute) History of cocaine use (Acute) Recent +UDS for cocaine (April 2024) Pt denied current use, states she was exposed to cocaine while visiting friend who uses it. Opioid use disorder in remission (Acute) In MAT Tx Per Pt [facility] [place] [facility] in [place] Plans to transfer to [facility] Acute deep vein thrombosis (DVT) of right upper extremity (Acute) Anemia associated with acute blood loss (Acute) Gestational hypertension without significant proteinuria (Acute) Anxiety (Chronic) Morgellons syndrome (Acute) Substance use disorder (Acute) Medical History , delivered Contraception Nexplanon placed in Left arm prior to discharge. MSSA bacteremia 04/17/18 Septic pulmonary embolism 06/04/2018. treated at [facility] Hepatitis C antibody positive in blood PTSD (post-traumatic stress disorder) History of endocarditis in adulthood 05/25/2018 History of pulmonary embolism 06/04/2018 [facility] Tricuspid valve regurgitation hemorrhage, third stage, delivered History of intravenous drug abuse Social History Smoking/Tobacco Use Status: Current every day Tobacco Type: e-cigarettes Quit status: quit date established Smoking risk assessment performed?: Yes Alcohol Intake: former Drug use: Current Sobriety Substance use type: former substance user Details: Addarall 20 mg once a day citalopram 20mg once a day lorazepam tid 2mg buprenorphine 8mg BID Housing: house Do you feel safe at home: Yes Do you feel safe in your relationship?: Yes History History 3 Para 1 Hx # Term Pregnancies 1 Multiple births 0 Hx # Pregnancies 0 Ectopic pregnancies 0 AB induced 1 Hx Number of Living Children 1 AB spontaneous 0 Past Pregnancies Del. Date GA/Weeks # Preg Succ Route Wgt Sex Labor Lgth Anesthesia Location Prov Complic 03/24/20 [facility], Dr. Dian Riley MD 04/17/24 04/17/24 35 No Yes vaginal Female JK Delivery Date: 03/24/20 Last Updated by: Enid German CNM IABrittney Delivery Date: 04/17/24 Last Updated by: Tiffani Swain MD Precipitous vaginal delivery. limited care.
[2024-07-05 22:30] VITALS: BP 120/89; PULSE 99; RESP 16; TEMP 36.8; O2SAT 97
[2024-07-05] MEDS: Doxycycline Hyclate 100 MG CAP PO (22:45)
[2024-07-05] MEDS: Ciprofloxacin/Dexameth. 7.5 ML BTL AD (22:45)
--- NOTE | 2024-07-06 17:22 | NUR.NOTE ---
Nursing Note: Pt called stating that her prescription was not sent to the pharmacy and she would like it sent in so that she could pick it up. The pharmacy on file was [facility] in [facility]. I called them and confirmed that the prescription was received, filled, and ready for the patient to pickup driver. I then called the patient back to let her know that the prescription was at [facility] in [place] and ready to be picked up. She said that she typically does use [facility] in [place] but was going to ask for it to be sent somewhere closer and she would just pay grant; however, she then stated that it was okay and it gave her a reason to get out of bed and leave her house. She thanked me and said she would leave to go pickup driver her antibiotics.
== END 2024-07-05 22:54 | disposition home or self-care (01) ==
PROVIDERS: Emergency Provider Emergency Medicine
DX: H92.02 Otalgia, left ear (principal); L98.9 Disorder of the skin and subcutaneous tissue, unspecified; F17.290 Nicotine dependence, other tobacco product, uncomplicated; Z86.711 Personal history of pulmonary embolism
CPT/HCPCS: 99283

== ENCOUNTER 2024-07-17 19:32 | Emergency (ER) | payer MEDICAID, SELFPAY ==
[2024-07-17 19:36] VITALS: BP 117/74; PULSE 82; RESP 18; TEMP 36.8; O2SAT 96
--- NOTE | 2024-07-17 20:09 | W.ED.GENAD ---
Discharge Plan Disposition Patient Disposition: Home Discharge Details Clinical Impression: Medication refill Primary Care Provider: Unknown,Unknown ED Provider: Emir Najera Home Meds and New Rx's Prescriptions: No Action lorazepam 2 mg tablet 2 mg PO TID PRN Patient Comments: take 1 tablet by mouth three times a day if needed for anxiety citalopram 40 mg tablet 20 mg PO DAILY buprenorphine HCl 8 mg tablet, sublingual 8 mg sublingual DAILY doxycycline hyclate 100 mg tablet 100 mg PO BID Qty: 14 0RF Discharge Instructions Additional Instructions: You were seen in the emergency department for medication refill. I am giving you enough lorazepam to get through to Friday to talk to your primary care doctor. We cannot refill these prescriptions for you routinely as they are controlled substance and this is mandated by the state. Please follow-up with your primary care doctor Friday. HPI General Mode of arrival: ambulatory. Date/Time Provider Initiated Documentation: 07/17/24 20:02. Limitations to Documentation: no limitations. Information obtained by: patient. HPI Narrative: 28-year-old female presents requesting medication refill. She has between healthcare providers/primary care providers presently as her old doctor retired. Her primary was supposed to send a prescription for lorazepam on Friday but they did not send it. She been out of her medication today. She takes 2 mg of Ativan 3 times daily. She denies any other complaints. She is requesting enough medications to get her through till Friday. Related Data Home Medications ?Medication ?Instructions ?Recorded ?Confirmed buprenorphine HCl 8 mg sublingual 8 mg sublingual DAILY 02/29/24 07/17/24 tablet citalopram 40 mg tablet 20 mg PO DAILY 02/29/24 07/17/24 doxycycline hyclate 100 mg tablet 100 mg PO BID #14 tabs 07/05/24 07/17/24 lorazepam 2 mg tablet 2 mg PO TID PRN 07/17/24 07/17/24 Previous Rx's ?Medication ?Instructions ?Recorded doxycycline hyclate 100 mg tablet 100 mg PO BID #14 tabs 07/05/24 Allergies Allergy/AdvReac Type Severity Reaction Status Date / Time bacitracin (From Neosporin Allergy Intermediate Skin Rash Verified 07/17/24 19:41 ([id number])) neomycin (From Neosporin Allergy Intermediate Skin Rash Verified 07/17/24 19:41 ([id number]-khorr)) polymyxin B (From Neosporin Allergy Intermediate Skin Rash Verified 07/17/24 19:41 ([id number])) General Stated Complaint: RX Refill PRINCESS: 4 Review of Systems Constitutional Constitutional: Denies chills, Denies fever(s) and Denies headache(s) Eyes Eyes: Denies change in vision ENT Ears, Nose, Mouth, and Throat: Denies headache(s) and Denies odynophagia Cardiovascular Cardiovascular: Denies chest pain and Denies dyspnea Respiratory Respiratory: Denies dyspnea Gastrointestinal Gastrointestinal: Denies abdominal pain, Denies diarrhea, Denies nausea, Denies odynophagia and Denies vomiting Genitourinary Genitourinary: Denies dysuria Musculoskeletal Musculoskeletal: Denies myalgias Integumentary/Breasts Skin/Breast: Denies changing lesions Neurologic Neurologic: Denies behavioral changes and Denies headache(s) Psychiatric Psychiatric: Denies behavioral changes Endocrine Endocrine: Denies heat intolerance Hematologic/Lymphatic Hematologic/Lymphatic: Denies lymphadenopathy Exam Const General: cooperative Nutritional Appearance: average body habitus Orientation: alert, awake and oriented x3 HENMS Head: normal to inspection Ears: external ears normal Mouth: moist mucous membranes Eyes Pupils: PERRL EOM: EOM intact bilaterally and No nystagmus Neck Neck: full ROM and no tracheal deviation Chest Chest: normal inspection of the chest Resp Auscultation: clear to auscultation bilaterally Cardio Rate: regular rate Rhythm: regular rhythm GI Inspection: normal to inspection Palpation: soft, no guarding, not rigid and nontender Back/Spine/Pelvis Back: No no CVA tenderness Thoracic/Lumbar Spine: thoracic and lumbar spine normal to inspection Skin General skin exam: no rashes or lesions noted Neuro General: patient alert, patient awake and patient oriented x3 Cranial Nerves: CN's II-XI intact bilaterally, PERRL and no nystagmus Cognition: normal cognition Motor: muscle tone normal throughout and strength 5/5 throughout Sensory Exam: no sensory deficits noted Extrem General: normal to inspection Course Vital Signs Vital signs: Vital Signs Temperature 36.8 C 07/17/24 19:36 Pulse 82 07/17/24 19:36 Respiratory Rate 18 07/17/24 19:36 Blood Pressure 117/74 07/17/24 19:36 Pulse Oximetry 96 07/17/24 19:36 Temperature 36.8 C 07/17/24 19:36 Pulse 82 07/17/24 19:36 Respiratory Rate 18 07/17/24 19:36 Blood Pressure 117/74 07/17/24 19:36 Pulse Oximetry 96 07/17/24 19:36 Oxygen Delivery Method Room Air 07/17/24 19:36 Oxygen Flow Rate 0 07/17/24 19:36 Medical Decision Making 28-year-old female presents with medication refill request. Looks like she is prescribed 2 mg of lorazepam 3 times daily as needed for anxiety. Takes this regularly. Will give her enough to get through till Friday. Told her she needs to follow-up with her primary care doctor after this and I told her we cannot do this routinely for her from the emergency department. She expresses understanding. No signs of withdrawal. Otherwise well-appearing. Will discharge with return precautions. Medical Records Medical records reviewed: Yes I reviewed the patient's medical records. Quality:SDOH Health Related Social Needs: Health related social needs education (Z55.6) PF[facility] All Active Problems Medication refill (Acute) Rash (Acute) Ear pain, left (Acute) History of cocaine use (Acute) Recent +UDS for cocaine (April 2024) Pt denied current use, states she was exposed to cocaine while visiting friend who uses it. Opioid use disorder in remission (Acute) In MAT Tx Per Pt [place] [facility] in [place] Plans to transfer to [facility] Acute deep vein thrombosis (DVT) of right upper extremity (Acute) Anemia associated with acute blood loss (Acute) Gestational hypertension without significant proteinuria (Acute) Anxiety (Chronic) Morgellons syndrome (Acute) Substance use disorder (Acute) Medical History , delivered Contraception Nexplanon placed in Left arm prior to discharge. MSSA bacteremia 04/17/18 Septic pulmonary embolism 06/04/2018. treated at [facility] Hepatitis C antibody positive in blood PTSD (post-traumatic stress disorder) History of endocarditis in adulthood 05/25/2018 History of pulmonary embolism 06/04/2018 [facility] Tricuspid valve regurgitation hemorrhage, third stage, delivered History of intravenous drug abuse Social History Smoking/Tobacco Use Status: Current every day Tobacco Type: e-cigarettes Quit status: quit date established Smoking risk assessment performed?: Yes Alcohol Intake: former Drug use: Current Sobriety Substance use type: former substance user Details: Addarall 20 mg once a day citalopram 20mg once a day lorazepam tid 2mg buprenorphine 8mg BID Housing: house Do you feel safe at home: Yes Do you feel safe in your relationship?: Yes History History 3 Para 1 Hx # Term Pregnancies 1 Multiple births 0 Hx # Pregnancies 0 Ectopic pregnancies 0 AB induced 1 Hx Number of Living Children 1 AB spontaneous 0 Past Pregnancies Del. Date GA/Weeks # Preg Succ Route Wgt Sex Labor Lgth Anesthesia Location [facility] 03/24/20 [facility], Dr. Dian Riley MD 04/17/24 04/17/24 35 No Yes vaginal Female JK Delivery Date: 03/24/20 Last Updated by: Enid German CNM IAB Delivery Date: 04/17/24 Last Updated by: Tiffani Swain MD Precipitous vaginal delivery. limited care.
[2024-07-17] MEDS: LORazepam 1 MG TAB 8 MG PO (20:16)
== END 2024-07-17 20:35 | disposition home or self-care (01) ==
PROVIDERS: Emergency Provider Student in an Organized Health Care Education/Training Program; PCP Emergency Medicine Undersea and Hyperbaric Medicine
DX: Z76.0 Encounter for issue of repeat prescription; Z55.6 Problems related to health literacy; F41.9 Anxiety disorder, unspecified
CPT/HCPCS: 99283

== ENCOUNTER 2024-07-22 20:14 | Emergency (ER) | payer MEDICAID, SELFPAY ==
[2024-07-22 20:20] VITALS: BP 143/68; PULSE 103; RESP 16; TEMP 36.9; O2SAT 98
[2024-07-22 20:23] VITALS: BP 143/68; PULSE 103; RESP 16; TEMP 36.9; O2SAT 98
--- NOTE | 2024-07-22 21:24 | W.ED.GENAD ---
Discharge Plan Disposition Patient Disposition: Home Condition: Good Discharge Details Clinical Impression: Pain due to dental caries Primary Care Provider: Molina Guerra ED Provider: Michelle Alvarez Home Meds and New Rx's Prescriptions: New amoxicillin-pot clavulanate 875-125 mg tablet 1 tab PO BID Qty: 14 0RF No Action lorazepam 2 mg tablet 2 mg PO TID PRN Patient Comments: take 1 tablet by mouth three times a day if needed for anxiety dextroamphetamine-amphetamine 20 mg tablet 20 mg PO DAILY Patient Comments: take 1 tablet by mouth twice a day citalopram 40 mg tablet 20 mg PO DAILY buprenorphine HCl 8 mg tablet, sublingual 8 mg sublingual DAILY Discharge Instructions Additional Instructions: Please follow up with your dentist as scheduled for dental extraction. You are being prescribed an antibiotic called Augmentin. Please take with activia yogurt or another probiotic to prevent antibiotic associated diarrhea. You may use ibuprofen 600 mg every 8 hours for pain control; you may alternate with tylenol 650 mg every 6 hours as needed. You may also use Orajel for topical pain control. Return to emergency care if you develop new fevers/chills, throat swelling/difficulty swallowing, difficulty breathing, severe headache with vision changes/facial weakness/other concerning symptoms, or if you are very worried and need to be rechecked again immediately. Discharge Data Discharge Date/Time-TO BE ENTERED AT DEPARTURE: 07/22/24 21:39 HPI General Date/Time Provider Initiated Documentation: 07/22/24 20:23. HPI Narrative: Janel is a 28 year old female who presents to the emergency department today for evaluation of continued dental pain. She reports that she has been treated with antibiotics including doxycycline for dental infection, has an appointment scheduled for next week to have the teeth pulled. She was prescribed some amoxicillin, but says that she thought she needed a stronger antibiotic. She has pain to bilateral lower jaws, with swelling to her gumline. Denies associated fever/chills, vision changes, ear pain, difficulty swallowing, change in voice, recent illness. Past medical history is significant for opioid use in remission, denies history of immunocompromise or antibiotic resistance Physical exam remarkable for extensive dental decay, especially to lower bilateral premolars. No intraoral swelling, mild swelling to lateral gumline at the buccal mucosa. Moist mucous membranes, clear voice. Uvula midline. Full painless range of motion of neck. Mild lymphadenopathy to anterior cervical lymph nodes. Patient alert and oriented, no acute distress. History and presentation consistent with dental caries. Will treat with antibiotics, as this is required prior to dental surgery. No red flags concerning for deep space infection/extension of infection, sepsis, or other serious pathology requiring diagnostic imaging or labs at this time. While in the emergency department, Janel received first dose of antibiotics. Reviewed discharge instructions with patient, including symptomatic management and red flags indicating need for return to emergency care Related Data Home Medications ?Medication ?Instructions ?Recorded ?Confirmed buprenorphine HCl 8 mg sublingual 8 mg sublingual DAILY 02/29/24 07/22/24 tablet citalopram 40 mg tablet 20 mg PO DAILY 02/29/24 07/22/24 lorazepam 2 mg tablet 2 mg PO TID PRN 07/17/24 07/22/24 amoxicillin 875 mg-potassium 1 tab PO BID #14 tabs 07/22/24 clavulanate 125 mg tablet dextroamphetamine-amphetamine 20 20 mg PO DAILY 07/22/24 07/22/24 mg tablet Previous Rx's ?Medication ?Instructions ?Recorded amoxicillin 875 mg-potassium 1 tab PO BID #14 tabs 07/22/24 clavulanate 125 mg tablet Allergies Allergy/AdvReac Type Severity Reaction Status Date / Time bacitracin (From Neosporin Allergy Intermediate Skin Rash Verified 07/22/24 20:24 ([id number])) neomycin (From Neosporin Allergy Intermediate Skin Rash Verified 07/22/24 20:24 ([id number])) polymyxin B (From Neosporin Allergy Intermediate Skin Rash Verified 07/22/24 20:24 ([id number])) General Stated Complaint: DentalOral PRINCESS: 4 Review of Systems Narrative: See HPI Exam Const General: cooperative, healthy appearing, comfortable, no acute distress and well developed Nutritional Appearance: average body habitus and well nourished Orientation: alert and oriented x3 HENMT Head: normal to inspection Ears: hearing grossly normal bilaterally General nose exam: external nose normal Face and sinus: normal facial exam Mouth: oral mucosae normal, lip normal, tongue normal, oropharynx normal and moist mucous membranes Teeth and gingiva: caries and gingiva abnormal (swelling to lower gumline) Throat: posterior oropharynx normal, tonsils normal and uvula midline Neck Neck: normal visual inspection, full ROM and lymphadenopathy (mild, anterior cervical) Resp Effort & Inspection: normal respiratory effort and able to speak in complete sentences Course Vital Signs Vital signs: Vital Signs Temperature 36.9 C 07/22/24 20:20 Pulse 103 H 07/22/24 20:20 Respiratory Rate 16 07/22/24 20:20 Blood Pressure 143/68 H 07/22/24 20:20 Pulse Oximetry 98 07/22/24 20:20 Temperature 36.9 C 07/22/24 20:23 Pulse 103 H 07/22/24 20:23 Respiratory Rate 16 07/22/24 20:23 Blood Pressure 143/68 H 07/22/24 20:23 Pulse Oximetry 98 07/22/24 20:23 Pain Level 2 07/22/24 20:23 Medical Decision Making Quality:SDOH Health Related Social Needs: Health related social needs education (Z55.6) PFSH All Active Problems (Updated 07/22/24 @ 21:28 by Michelle Sykse) Pain due to dental caries (Acute) Medication refill (Acute) Rash (Acute) Ear pain, left (Acute) History of cocaine use (Acute) Recent +UDS for cocaine (April 2024) Pt denied current use, states she was exposed to cocaine while visiting friend who uses it. Opioid use disorder in remission (Acute) In MAT Tx Per Pt [facility] [place] [facility] in [place] Plans to transfer to [facility] Acute deep vein thrombosis (DVT) of right upper extremity (Acute) Anemia associated with acute blood loss (Acute) Gestational hypertension without significant proteinuria (Acute) Anxiety (Chronic) Morgellons syndrome (Acute) Substance use disorder (Acute) Medical History , delivered Contraception Nexplanon placed in Left arm prior to discharge. MSSA bacteremia 04/17/18 Septic pulmonary embolism 06/04/2018. treated at [facility] Hepatitis C antibody positive in blood PTSD (post-traumatic stress disorder) History of endocarditis in adulthood 05/25/2018 History of pulmonary embolism 06/04/2018 [facility] Tricuspid valve regurgitation hemorrhage, third stage, delivered History of intravenous drug abuse Social History Smoking/Tobacco Use Status: Current every day Tobacco Type: e-cigarettes Quit status: quit date established Smoking risk assessment performed?: Yes Alcohol Intake: former Drug use: Current Sobriety Substance use type: former substance user Details: Addarall 20 mg once a day citalopram 20mg once a day lorazepam tid 2mg buprenorphine 8mg BID Housing: house Do you feel safe at home: Yes Do you feel safe in your relationship?: Yes History History 3 Para 1 Hx # Term Pregnancies 1 Multiple births 0 Hx # Pregnancies 0 Ectopic pregnancies 0 AB induced 1 Hx Number of Living Children 1 AB spontaneous 0 Past Pregnancies Del. Date GA/Weeks # Preg Succ Route Wgt Sex Labor Lgth Anesthesia Location [facility] 03/[facility], Dr. Dian Riley MD 04/17/24 04/17/24 35 No Yes vaginal Female JK Delivery Date: 03/24/20 Last Updated by: Enid German CNM IAB Delivery Date: 04/17/24 Last Updated by: Tiffani Swain MD Precipitous vaginal delivery. limited care.
[2024-07-22] MEDS: Amox. 875/Clav. 125, 2 TABS/BTL 1 TAB PO (21:36)
[2024-07-22 21:38] VITALS: PULSE 86; RESP 18; O2SAT 98
== END 2024-07-22 21:39 | disposition home or self-care (01) ==
LOC: ER 21:46
PROVIDERS: Emergency Provider Nurse Practitioner Family; PCP Emergency Medicine Undersea and Hyperbaric Medicine
DX: K08.89 Other specified disorders of teeth and supporting structures (principal); K02.9 Dental caries, unspecified; F17.290 Nicotine dependence, other tobacco product, uncomplicated
CPT/HCPCS: 99283

== ENCOUNTER 2024-08-19 21:28 | Emergency (ER) | payer MEDICAID, SELFPAY ==
[2024-08-19 21:38] VITALS: BP 114/83; PULSE 124; RESP 20; TEMP 36.9; O2SAT 98
--- NOTE | 2024-08-19 22:29 | ED.GENADUL_ITS ---
Discharge Plan Discharge Details Chief Complaint: Cellulitis Primary Care Provider: Molina Guerra ED Provider: Erick Chopra Home Meds and New Rx's Prescriptions: No Action lorazepam 2 mg tablet 2 mg PO TID PRN Patient Comments: take 1 tablet by mouth three times a day if needed for anxiety dextroamphetamine-amphetamine 20 mg tablet 20 mg PO DAILY Patient Comments: take 1 tablet by mouth twice a day citalopram 40 mg tablet 20 mg PO DAILY buprenorphine HCl 8 mg tablet, sublingual 8 mg sublingual DAILY HPI General Date/Time Provider Initiated Documentation: 08/19/24 22:28 . HPI Narrative: Patient presents emergency department stating that she has been having these lesions all over her body and she scratches that they get infected. States that she was on doxycycline in the past but she has been off doxycycline she and she gave to her child and is here to see if she gets some doxycycline for the lesions she has in her arms and in her breast. Denies any fever chills or any significant rashes Related Data Home Medications ?Medication ?Instructions ?Recorded ?Confirmed buprenorphine HCl 8 mg sublingual 8 mg sublingual DAILY 02/29/24 08/19/24 tablet citalopram 40 mg tablet 20 mg PO DAILY 02/29/24 08/19/24 lorazepam 2 mg tablet 2 mg PO TID PRN 07/17/24 08/19/24 dextroamphetamine-amphetamine 20 20 mg PO DAILY 07/22/24 08/19/24 mg tablet Allergies Allergy/AdvReac Type Severity Reaction Status Date / Time bacitracin (From Neosporin Allergy Intermediate Skin Rash Verified 08/19/24 21:46 ([id number])) neomycin (From Neosporin Allergy Intermediate Skin Rash Verified 08/19/24 21:46 ([id number])) polymyxin B (From Neosporin Allergy Intermediate Skin Rash Verified 08/19/24 21:46 ([id number])) General Stated Complaint: Cellulitis PRINCESS: 4 Review of Systems Narrative: Review of Systems: Constitutional: No fevers, chills, sweats Eye: No recent visual problems ENT: No ear pain, nasal congestion, sore throat Respiratory: No shortness of breath, cough Cardiovascular: No Chest pain, palpitations, syncope Gastrointestinal: No nausea, vomiting, diarrhea Genitourinary: No hematuria Kong/Lymph: Negative for bruising tendency, swollen lymph glands Endocrine: Negative for excessive thirst, excessive hunger Musculoskeletal: No back pain, neck pain, joint pain, muscle pain, decreased range of motion Neurologic: Alert & oriented X 4 Psychiatric: No anxiety, depression Exam Narrative Exam Narrative: Exam; vitals signs as reported above normal Constitutional; In no acute distress, afebrile General: cooperative, healthy appearing, comfortable and no acute distress HEENT: Head: normal to inspection, no palpable skull fracture and normocephalic atraumatic Eyes: : appearance normal, both eyes and all related structures EOM intact bilaterally Pupils: PERRL : conjunctiva normal Direct ophthalmoscopy: normal light reflex, normal conjunctiva, normal visual acuity Ears: Normal TM, normal external canal Nose: normal no rhinorreha Neck no JVD, supple non tender Neck: normal visual inspection, full ROM and no lymphadenopathy Chest: normal inspection of the chest Respiratory : normal respiratory effort and able to speak in complete sentences no wheezing no rales Cardio Rate: regular rate, rhythm: regular rhythm normal heart sounds S1 and S2 no murmurs, gallops, or rubs GI : normal to inspection, normal bowel sounds, soft, non tender, non distended, no organomegaly Back/Spine/ no CVA tenderness Thoracic/Lumbar Spine: no tenderness or deformities Skin multiple syncopal initial lesions in her face her nose her arms her breast with excoriation but no erythema Neuro: patient alert oriented x 4 and no meningeal signs, Cranial Nerves: CN's II-XI intact bilaterally, Cognition: normal cognition, Speech: speech normal, Gait: normal gait, Depp tendon reflexes normal 2+ muscle strength 5/5 bilaterally Extremities, no edema, full range of motion, normal strength Course Vital Signs Vital signs: Vital Signs Temperature 36.9 C 08/19/24 21:38 Pulse 124 H 08/19/24 21:38 Respiratory Rate 20 08/19/24 21:38 Blood Pressure 114/83 08/19/24 21:38 Pulse Oximetry 98 08/19/24 21:38 Temperature 36.9 C 08/19/24 21:38 Temperature Source Oral 08/19/24 21:38 Pulse 124 H 08/19/24 21:38 Respiratory Rate 20 08/19/24 21:38 Blood Pressure 114/83 08/19/24 21:38 Blood Pressure Position Sitting 08/19/24 21:38 Pulse Oximetry 98 08/19/24 21:38 Oxygen Delivery Method Room Air 08/19/24 21:38 Oxygen Flow Rate 0 08/19/24 21:38 Pain Level 0 08/19/24 21:38 Medical Decision Making MDM: Summary: Patient presents emergency department for she has episodes of folliculitis all over her body on and off and she is was on doxycycline prior to given but the daughter now, is requesting refills of the medication for folliculitis Data Review Analysis All the data on this patient was reviewed by me including laboratory and imaging studies as well as bedside studies performed by me Independent review of Studies Imaging Lab: Risk Stratification: Patient with chronic and acute folliculitis will be given doxycycline Differential Diagnosis: 1. Folliculitis 2. Cellulitis 3. Lymphangitis 4. 5. Consultants: Shared disposition: Patient is send disposition will follow accordingly with dermatology Impression: Medical Records Medical records reviewed: Yes I reviewed the patient's medical records. Quality:SDOH Health Related Social Needs: Health related social needs education (Z55.6) PFSH All Active Problems Pain due to dental caries (Acute) History of cocaine use (Acute) Recent +UDS for cocaine (April 2024) Pt denied current use, states she was exposed to cocaine while visiting friend who uses it. Opioid use disorder in remission (Acute) In MAT Tx Per Pt [facility] [place] Plans to transfer to [facility] Acute deep vein thrombosis (DVT) of right upper extremity (Acute) Anemia associated with acute blood loss (Acute) Gestational hypertension without significant proteinuria (Acute) Anxiety (Chronic) Morgellons syndrome (Acute) Substance use disorder (Acute) Medical History , delivered Contraception Nexplanon placed in Left arm prior to discharge. MSSA bacteremia 04/17/18 Septic pulmonary embolism 06/04/2018. treated at [facility] Hepatitis C antibody positive in blood PTSD (post-traumatic stress disorder) History of endocarditis in adulthood 05/25/2018 History of pulmonary embolism 06/04/2018 [facility] Tricuspid valve regurgitation hemorrhage, third stage, delivered History of intravenous drug abuse Social History Smoking/Tobacco Use Status: Current every day Tobacco Type: e-cigarettes Quit status: quit date established Smoking risk assessment performed?: Yes Alcohol Intake: former Drug use: Current Sobriety Substance use type: former substance user Details: Addarall 20 mg once a day citalopram 20mg once a day lorazepam tid 2mg buprenorphine 8mg BID Housing: house Do you feel safe at home: Yes Do you feel safe in your relationship?: Yes History History 3 Para 1 Hx # Term Pregnancies 1 Multiple births 0 Hx # Pregnancies 0 Ectopic pregnancies 0 AB induced 1 Hx Number of Living Children 1 AB spontaneous 0 Past Pregnancies Del. Date GA/Weeks # Preg Succ Route Wgt Sex Labor Lgth Anesth esia Location Prov Complic 03/24/20 Dr. Dian Bates MD 04/17/24 04/17/24 35 No Yes vaginal Female JK Delivery Date: 03/24/20 Last Updated by: Enid German CNM I[facility] Delivery Date: 04/17/24 Last Updated by: Tiffani Swain MD Precipitous vaginal delivery. limited care.
[2024-08-19] MEDS: Doxycycline Hyclate 100 MG CAP PO (22:47)
== END 2024-08-19 22:49 | disposition home or self-care (01) ==
PROVIDERS: Emergency Provider Emergency Medicine Emergency Medical Services; PCP Emergency Medicine Undersea and Hyperbaric Medicine
DX: L73.8 Other specified follicular disorders (principal)
CPT/HCPCS: 99283 ×2

== ENCOUNTER 2024-08-29 00:05 | Emergency (ER) | payer MEDICAID, SELFPAY ==
[2024-08-29] VITALS (8 sets, daily range): BP systolic 125–152; BP diastolic 78–99; PULSE 90–117; RESP 20; O2SAT 96–100
[2024-08-29 00:51] LABS: Abs Immature Grans 0.01 10^3/uL (0.0-0.06); Absolute Basophil Count 0.06 10^3/uL (0.0-0.2); Absolute Eosinophil Count 0.23 10^3/uL (0.0-0.7); Absolute Monocyte Count 0.61 10^3/uL (0.1-0.8); Absolute Neutrophil Count 4.92 10^3/uL (1.2-6.7); Basophils % 0.7 %; Eosinophils % 2.8 %; HGB 11.9 g/dL (11.2-15.7); Immature Grans % 0.1 %; Lymphocytes % 29.2 %; MCH 28.9 pg (27.0-33.0); MCHC 33.1 % (32.0-36.0); MCV 87 fL (80-95); MPV 9.9 fL (8.0-11.0); Monocytes % 7.4 %; Neutrophils % 59.8 %; Platelet Count 257 10^3/uL (130-400); RBC 4.12 10^6/uL (3.93-5.22); RDW 13.2 % (11.7-14.6); RDW-SD 41.7 fL; WBC 8.23 10^3/uL (4.4-10.8)
[2024-08-29 01:09] LABS: INR 1.1 (0.9-1.1); PTT Activated 24.2 sec (20.6-30.2); Prothrombin Time 11.1 sec (9.1-11.1)
[2024-08-29 01:11] LABS: ALT 44 U/L (14-59); AST 29 U/L (15-37); Albumin 3.9 g/dL (3.4-5.0); Alkaline Phosphatase 60 U/L (46-116); Anion Gap 7.8 mmol/L (3-11); BUN 15 mg/dL (7-18); Bilirubin, Total 0.4 mg/dL (0.2-1.0); CO2 27.2 mmol/L (21.0-32.0); CREATININE 0.8 mg/dL (0.55-1.02); Calcium 8.8 mg/dL (8.5-10.1); Chloride 106 mmol/L (98-107); Estimated GFR 100.96 (mL/min/1.73m2); Glucose 113 mg/dL (74-106); Potassium 3.3 mmol/L (3.5-5.1); Sodium 141 mmol/L (136-145); Total Protein 7.5 g/dL (6.4-8.2)
[2024-08-29] MEDS: Acetaminophen 500 MG TAB 1000 MG PO (01:12)
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
[2024-08-29] MEDS: Omnipaque 350 MG/ML 100 ML BTL 80 ML IJ (02:00)
[2024-08-29] MEDS: Normal Saline - Diluent 50 ML VIAL IJ (02:00)
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
[2024-08-29] MEDS: Ketorolac 15 MG/ML VIAL IVP (04:58)
[2024-08-29 09:14] LABS: Bilirubin Negative (Negative); Blood Negative (Negative); Clarity Clear (Clear); Glucose Negative (Negative); Ketones Negative (Negative); Leukocyte Esterase Negative (Negative); Nitrite Negative (Negative); Urobilinogen 0.2 mg/dL (Up to 0.2)
--- NOTE | 2024-08-29 09:18 | NUR.NOTE ---
Nursing Note: Umbrella polymerization helper paged and advocate requested for this patient.
== END 2024-08-29 12:59 | disposition home or self-care (01) ==
PROVIDERS: Emergency Provider Student in an Organized Health Care Education/Training Program; PCP Emergency Medicine Undersea and Hyperbaric Medicine
DX: T74.11XA Adult physical abuse, confirmed, initial encounter (principal); S00.83XA Contusion of other part of head, initial encounter; M54.50 Low back pain, unspecified; S03.43XA Sprain of jaw, bilateral, initial encounter; D27.0 Benign neoplasm of right ovary; Y07.030 Male partner, current, perpetrator of maltreatment and neglect
CPT/HCPCS: 36415; 74177; 80053; 81025; 86850; 86900; 86901; 96374; 99285; 70450; 70486; 71260; 72125; 81003; 85025; 85610; 85730; 99284; J1885; J3490

== ENCOUNTER 2024-10-03 21:01 | Emergency (ER) | payer MEDICAID, SELFPAY ==
--- NOTE | 2024-10-03 21:00 | RT.EKG_ITS ---
APPROVED REPORT Exam: Resting ECG Reason for Exam: SOB Patient Location: E HR:119 bpm ECG Measurements Heart Rate 119 AXIS TX 116 P 79 QRSd 76 QRS 85 QT 309 T 1 QTc 435 Conclusion Sinus tachycardia at a rate of 119 with inferior Q waves without acute ischemic change
[2024-10-03 21:09] VITALS: BP 129/70; PULSE 123; RESP 18; TEMP 36.6; O2SAT 98
--- NOTE | 2024-10-03 21:37 | ED.GENADUL_ITS ---
Discharge Plan Disposition Patient Disposition: Home Condition: Stable Discharge Details Clinical Impression: Shortness of breath Primary Care Provider: Molina Guerra ED Provider: Liana Sanchez Home Meds and New Rx's Prescriptions: New doxycycline hyclate 100 mg capsule 100 mg PO BID Qty: 14 0RF lorazepam 2 mg tablet 2 mg PO TID PRNQty: 9 0RF No Action lorazepam 2 mg tablet 2 mg PO TID PRN Patient Comments: take 1 tablet by mouth three times a day if needed for anxiety dextroamphetamine-amphetamine 20 mg tablet 20 mg PO DAILY Patient Comments: take 1 tablet by mouth twice a day citalopram 40 mg tablet 20 mg PO DAILY buprenorphine HCl 8 mg tablet, sublingual 8 mg sublingual DAILY doxycycline hyclate 100 mg capsule 100 mg PO BID Qty: 20 0RF Discharge Instructions Instructions: Shortness of Breath, Adult ED Additional Instructions: Please follow-up with your primary care provider. Take your medications as prescribed. Return to the Emergency Department with any new or worsening symptoms or if you change your mind regarding further work-up. HPI General Date/Time Provider Initiated Documentation: 10/03/24 21:02 . HPI Narrative: The patient is a 29-year-old female with a history of anxiety, prior history of DVT who comes the emergency department for shortness of breath. The patient reports that she has been feeling increasingly short of breath for the past week. Reports that she was very busy during the week but it was more noticeable during the weekend. The patient reports that she had run out of her lorazepam that she takes 3 times a day for anxiety. Reports that she called her doctor for refill on Friday but they were unable to fill it over the weekend. Denies any known sick contacts. Denies any new or worsening cough. Reports that she has had no fever with this but has felt that her hands and feet are cold and she is wondering if she has poor circulation. Reports she is currently not on any blood thinning medication and states that she had a blood clot on her arm during . Denies any nausea or vomiting. Denies any urinary symptoms. Denies concerns since starting control. Reports that she continued to feel short of breath and tried breathing steam from the shower which has helped but it did not completely go away so finally came to the emergency department. Related Data Home Medications ?Medication ?Instructions ?Recorded ?Confirmed buprenorphine HCl 8 mg sublingual 8 mg sublingual ROHINI Y 02/29/24 10/03/24 tablet citalopram 40 mg tablet 20 mg PO DAILY 02/29/2409/06 lorazepam 2 mg tablet 2 mg PO TID PRN 07/17/24 dextroamphetamine-amphetamine 20 20 mg PO DAILY 10/03/24 mg tablet doxycycline hyclate 100 mg capsule 100 mg PO BID #20 c aps 08/19/24 10/03/24 doxycycline hyclate 100 mg capsule 100 mg PO BID #14 c [facility] 10/03/24 lorazepam 2 mg tablet 2 mg PO TID PRN #9 tabs 09/06 12/30 Previous Rx's ?Medication ?Instructions ?Recorded doxycycline hyclate 100 mg capsule 100 mg PO BID #20 c [facility] 08/19/24 doxycycline hyclate 100 mg capsule 100 mg PO BID #14 c [facility] 10/03/24 lorazepam 2 mg tablet 2 mg PO TID PRN #9 tabs 09/06 12/30 Allergies Allergy/AdvReac Type Severity Reaction Status Date / Time bacitracin (From Neosporin Allergy Intermediate Skin Rash Verified 10/03/24 21:13 ([id number])) neomycin (From Neosporin Allergy Intermediate Skin Rash Verified 10/03/24 21:13 ([id number])) polymyxin B (From Neosporin Allergy Intermediate Skin Rash Verified 10/03/24 21:13 ([id number])) General Stated Complaint: GenMedical PRINCESS: 3 Review of Systems Narrative: Review of systems are negative except as mentioned. Exam Narrative Exam Narrative: General appearance: The patient is alert, has no immediate need for airway protection and no signs of toxicity. Neck: Supple, non-tender. Respiratory: There are no retractions. Lungs are clear to auscultation. Cardiovascular: Patient is tachycardic but regular. Radial pulses are intact and equal. Patient has equal dorsalis pedis pulses. Gastrointestinal: The abdomen is soft and nondistended with normal bowel sounds. Nontender to palpation throughout. Neurological: The patient is alert, awake and oriented x 3. Skin: Warm and dry. Extremities: No lower extremity edema or calf tenderness is noted to palpation bilaterally. No lower extremity asymmetry is appreciated either. Course Vital Signs Vital signs: Vital Signs Temperature 36.6 C 10/03/24 21:09 Pulse 123 H 10/03/24 21:09 Respiratory Rate 18 10/03/24 21:09 Blood Pressure 129/70 10/03/24 21:09 Pulse Oximetry 98 10/03/24 21:09 Temperature 36.6 C 10/03/24 21:09 Temperature Source Oral 10/03/24 21:09 Pulse 123 H 10/03/24 21:09 Respiratory Rate 18 10/03/24 21:09 Blood Pressure 129/70 10/03/24 21:09 Pulse Oximetry 98 10/03/24 21:09 Oxygen Delivery Method Room Air 10/03/24 21:09 Oxygen Flow Rate 0 10/03/24 21:09 Pain Level 0 10/03/24 21:09 Medical Decision Making Patient arrives tachycardic but not hypoxic. Physical exam is otherwise benign. Patient admits that she has been unable to take her lorazepam since Friday which could certainly be contributing to the tachycardia. I ordered lorazepam for her to take now. I did order cardiac workup but have also ordered angiography study of her chest given prior history of blood clots. The patient has changed her mind regarding waiting the emergency department for blood work and CAT scan. Instead she prefers getting lorazepam and doxycycline. I told her that I would not be able to rule out blood clots as the etiology of her symptoms. Nevertheless she reports that she needs to go home to take care of her child and does not wish to stay therefore she is to be discharged. I also have considered lorazepam withdrawal therefore I told her I can give her a dose to go also since her pharmacy is closed along with a dose to take now. I told her I can send a prescription to her pharmacy since she informs me that it will take 3 days before her primary care doctor can fill her prescription and I do not want her to seize. I told her by staying in the emergency department longer we can ensure that she does not seize and states that she does not feel like she is going to have a seizure. Reports she has had seizure when she was 17 and does not think she is going to have one. She will get a dose of doxycycline today also and a prescription for doxycycline per her request. I told her in the meantime if she does get worse or develop any new or concerning symptoms or if she changes her mind regarding further workup to return to the emergency department immediately otherwise follow-up with her primary care doctor. ECG Data Attestation: I personally reviewed and interpreted this ECG (s) as follows: (Sinus tachycardia at a rate of 119 without acute ischemic change with inferior Q waves) Quality:SDOH Health Related Social Needs: Health related social needs education PFSH All Active Problems (Updated 10/03/24 @ 21:51 by Liana Sanchez DO) Shortness of breath (Acute) History of cocaine use (Acute) Recent +UDS for cocaine (April 2024) Pt denied current use, states she was exposed to cocaine while visiting friend who uses it. Opioid use disorder in remission (Acute) In MAT Tx Per [facility] in [place] Plans to transfer to [facility] Acute deep vein thrombosis (DVT) of right upper extremity (Acute) Anemia associated with acute blood loss (Acute) Gestational hypertension without significant proteinuria (Acute) Anxiety (Chronic) Morgellons syndrome (Acute) Substance use disorder (Acute) Medical History , delivered Contraception Nexplanon placed in Left arm prior to discharge. MSSA bacteremia 04/17/18 Septic pulmonary embolism 06/04/2018. treated at [facility] Hepatitis C antibody positive in blood PTSD (post-traumatic stress disorder) History of endocarditis in adulthood 05/25/2018 History of pulmonary embolism 06/04/2018 [facility] Tricuspid valve regurgitation hemorrhage, third stage, delivered History of intravenous drug abuse Social History Smoking/Tobacco Use Status: Current every day Tobacco Type: e-cigarettes Quit status: quit date established Smoking risk assessment performed?: Yes Alcohol Intake: former Drug use: Current Sobriety Substance use type: former substance user Details: Addarall 20 mg once a day citalopram 20mg once a day lorazepam tid 2mg buprenorphine 8mg BID Housing: house Do you feel safe at home: Yes Do you feel safe in your relationship?: Yes History History 3 Para 1 Hx # Term Pregnancies 1 Multiple births 0 Hx # Pregnancies 0 Ectopic pregnancies 0 AB induced 1 Hx Number of Living Children 1 AB spontaneous 0 Past Pregnancies Del. Date GA/Weeks # Preg Succ Route Wgt Sex Labor Lgth Anesth esia Location Prov [facility] 03/24/20 Dr. Dian Bates MD 04/17/24 04/17/24 35 No Yes vaginal Female JK Delivery Date: 03/24/20 Last Updated by: Enid German CNM IABrittney Delivery Date: 04/17/24 Last Updated by: Tiffani Swain MD Precipitous vaginal delivery. limited care.
[2024-10-03] MEDS: Normal Saline Flush 10 ML SYR IVP (21:43)
[2024-10-03] MEDS: LORazepam 1 MG TAB 2 MG PO ×2 (21:57)
[2024-10-03] MEDS: Doxycycline Hyclate 100 MG CAP PO (21:57)
[2024-10-03 22:01] VITALS: RESP 16
== END 2024-10-03 22:02 | disposition home or self-care (01) ==
LOC: ER 22:04
PROVIDERS: Emergency Provider Emergency Medicine; PCP Emergency Medicine Undersea and Hyperbaric Medicine
DX: R06.02 Shortness of breath (principal)
CPT/HCPCS: 99283 ×2; 80053; 93005; 84484; 84703; 85025; 93010

== ENCOUNTER 2025-01-05 13:07 | Emergency (ER) | payer MEDICAID, SELFPAY ==
[2025-01-05 13:09] VITALS: BP 131/86; PULSE 113; RESP 16; TEMP 37.5; O2SAT 100
[2025-01-05 13:16] VITALS: BP 131/86; PULSE 113; RESP 16; TEMP 37.5; O2SAT 100
--- NOTE | 2025-01-06 09:05 | W.ED.GENAD ---
Discharge Plan Disposition Patient Disposition: Home Discharge Details Clinical Impression: Oral thrush, Upper respiratory infection Primary Care Provider: Unknown,Unknown ED Provider: Elidia Perry Home Meds and New Rx's Prescriptions: New nystatin 100,000 unit/mL suspension 4 ml PO QID 14 Days Qty: 224 0RF Rx Instructions: swish and swallow Continued lorazepam 2 mg tablet 2 mg PO TID PRN Patient Comments: take 1 tablet by mouth three times a day if needed for anxiety dextroamphetamine-amphetamine 20 mg tablet 20 mg PO DAILY Patient Comments: take 1 tablet by mouth twice a day doxycycline hyclate 100 mg capsule 100 mg PO BID Qty: 14 0RF lorazepam 2 mg tablet 2 mg PO TID PRNQty: 9 0RF citalopram 40 mg tablet 20 mg PO DAILY buprenorphine HCl 8 mg tablet, sublingual 8 mg sublingual DAILY doxycycline hyclate 100 mg capsule 100 mg PO BID Qty: 20 0RF Discharge Instructions Instructions: Upper Respiratory Infection ED Additional Instructions: Recommend using Afrin nasal spray to help with the congestion Nystatin for thrush We are unable to check a fingerstick for blood glucose as you requested to leave to scrap picker your son please follow-up with your pcp for recheck Discharge Data Discharge Date/Time-TO BE ENTERED AT DEPARTURE: 01/05/25 15:01 HPI General Date/Time Provider Initiated Documentation: 01/05/25 13:16. HPI Narrative: This 29-year-old female presents with sore throat and ear pain with cough and congestion with reported thrush on her tongue for the past 5 days. States kids are sick with similar symptoms aside from thrush. Denies any chest pain denies chance of denies recent illicit drug use. Has not attempted any [id number] medications. Related Data Home Medications ?Medication ?Instructions ?Recorded ?Confirmed buprenorphine HCl 8 mg sublingual 8 mg sublingual DAILY 02/29/24 01/05/25 tablet citalopram 40 mg tablet 20 mg PO DAILY 02/29/24 01/05/25 lorazepam 2 mg tablet 2 mg PO TID PRN 07/17/24 01/05/25 dextroamphetamine-amphetamine 20 20 mg PO DAILY 07/22/24 01/05/25 mg tablet doxycycline hyclate 100 mg capsule 100 mg PO BID #20 caps 08/19/24 01/05/25 doxycycline hyclate 100 mg capsule 100 mg PO BID #14 caps 10/03/24 01/05/25 lorazepam 2 mg tablet 2 mg PO TID PRN #9 tabs 10/03/24 01/05/25 nystatin 100,000 unit/mL oral 4 ml PO QID 14 days #224 mL 01/05/25 suspension Previous Rx's ?Medication ?Instructions ?Recorded doxycycline hyclate 100 mg capsule 100 mg PO BID #20 caps 08/19/24 doxycycline hyclate 100 mg capsule 100 mg PO BID #14 caps 10/03/24 lorazepam 2 mg tablet 2 mg PO TID PRN #9 tabs 10/03/24 nystatin 100,000 unit/mL oral 4 ml PO QID 14 days #224 mL 01/05/25 suspension Allergies Allergy/AdvReac Type Severity Reaction Status Date / Time bacitracin (From Neosporin Allergy Intermediate Skin Rash Verified 01/05/25 13:15 ([id number])) neomycin (From Neosporin Allergy Intermediate Skin Rash Verified 01/05/25 13:15 ([id number])) polymyxin B (From Neosporin Allergy Intermediate Skin Rash Verified 01/05/25 13:15 ([id number])) General Stated Complaint: Sorethroat PRINCESS: 4 Exam Narrative Exam Narrative: Alert and oriented female, no acute distress afebrile, possible oropharyngeal thrush no submandibular lymphadenopathy oropharynx patent uvula midline, TMs clear bilaterally Course Vital Signs Vital signs: Vital Signs Temperature 37.5 C 01/05/25 13:09 Pulse 113 H 01/05/25 13:09 Respiratory Rate 16 01/05/25 13:09 Blood Pressure 131/86 01/05/25 13:09 Pulse Oximetry 100 01/05/25 13:09 Temperature 37.5 C 01/05/25 13:16 Temperature Source Temporal Artery Scan 01/05/25 13:16 Pulse 113 H 01/05/25 13:16 Respiratory Rate 16 01/05/25 13:16 Blood Pressure 131/86 01/05/25 13:16 Blood Pressure Position Sitting 01/05/25 13:16 Pulse Oximetry 100 01/05/25 13:16 Oxygen Delivery Method Room Air 01/05/25 13:16 Oxygen Flow Rate 0 01/05/25 13:16 Pain Level 4 01/05/25 13:16 Lab/Test Results Lab/Test Results: 01/05/25 13:21 Pharynx Group A Streptococcus Culture - Pending POC Strep Test-GAURANG(Rapid) Start: 01/05/25 13:21 Freq: Status: Discharge Protocol: Document 01/05/25 13:35 CT (Rec: 01/05/25 13:35 CT [id number]) Strep test-GAURANG(Rapid)-POC POC-Strep test-GAURANG ( Negative Rapid) POC-Strep test-GAURANG (Rapid) Negative Medical Decision Making Results: Strep negative Patient was becoming agitated and requesting to be discharged from the hospital. I went back into the room to reassess patient she states she needs to go to her son. She is asking now for lorazepam prescription she states she is going to run out. I reviewed her PDMP she has not been on lorazepam for the past several months. I will not give patient any Ativan today. I did give her nystatin for her possible oropharyngeal thrush. There is no indication for antibiotics at this time. I was unable to recheck patient's pulse as she eloped secondary to agitation from not receiving Ativan.during my encounter initially patient calm and answering questions appropriately. did not initially request any illicit substances. aside from pulse, pt is otherwise quite stable, alert, and oriented Quality:SDOH Health Related Social Needs: Health related social needs education PFSH All Active Problems (Updated 01/05/25 @ 14:04 by ARMANI Bonilla) Upper respiratory infection (Acute) Oral thrush (Acute) History of cocaine use (Acute) Recent +UDS for cocaine (April 2024) Pt denied current use, states she was exposed to cocaine while visiting friend who uses it. Opioid use disorder in remission (Acute) In MAT Tx Per [facility] in [place] Plans to transfer to [facility] Acute deep vein thrombosis (DVT) of right upper extremity (Acute) Anemia associated with acute blood loss (Acute) Gestational hypertension without significant proteinuria (Acute) Anxiety (Chronic) Morgellons syndrome (Acute) Substance use disorder (Acute) Medical History , delivered Contraception Nexplanon placed in Left arm prior to discharge. MSSA bacteremia 04/17/18 Septic pulmonary embolism 06/04/2018. treated at [facility] Hepatitis C antibody positive in blood PTSD (post-traumatic stress disorder) History of endocarditis in adulthood 05/25/2018 History of pulmonary embolism 06/04/2018 [facility] Tricuspid valve regurgitation hemorrhage, third stage, delivered History of intravenous drug abuse Social History Smoking/Tobacco Use Status: Current every day Tobacco Type: e-cigarettes Quit status: quit date established Smoking risk assessment performed?: Yes Alcohol Intake: former Drug use: Current Sobriety Substance use type: former substance user Details: Addarall 20 mg once a day citalopram 20mg once a day lorazepam tid 2mg buprenorphine 8mg BID Housing: house Do you feel safe at home: Yes Do you feel safe in your relationship?: Yes History History 3 Para 1 Hx # Term Pregnancies 1 Multiple births 0 Hx # Pregnancies 0 Ectopic pregnancies 0 AB induced 1 Hx Number of Living Children 1 AB spontaneous 0 Past Pregnancies Del. Date GA/Weeks # Preg Succ Route Wgt Sex Labor [facility]est[facility] [place] [place] [facility] 04/17/24 35 No Yes vaginal Female JK Delivery Date: 03/24/20 Last Updated by: Enid German CNM IAB Delivery Date: 04/17/24 Last Updated by: Tiffani Swain MD Precipitous vaginal delivery. limited care.
== END 2025-01-05 15:01 | disposition home or self-care (01) ==
PROVIDERS: Emergency Provider Physician Assistant
DX: B37.0 Candidal stomatitis (principal); J06.9 Acute upper respiratory infection, unspecified
CPT/HCPCS: 99283 ×2; 87880; 87081